=== PATIENT | male | born 1930 | race Caucasian/White ===

== ENCOUNTER → 2017-03-15 | Outpatient (CLI) | payer MEDICARE, BC ==
--- NOTE | 2017-03-21 14:52 | P.ARTDOP ---
Arterial Doppler LOWER EXTREMITY ARTERIAL DOPPLER: DATE OF SERVICE: 03/15/2017 Reason for study: Lower extremity vascular disease. Doppler waveforms: Multiphasic bilaterally throughout. Pulse volume recording: Normal configuration. Pressure gradients: None. Ankle-brachial indices: Cannot be occluded. Toe pressures: 113 on the right, 116 on the left Impression: Normal study. 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
== END | disposition home or self-care (01) ==
LOC: RADUSWWP 12:08
PROVIDERS: ATTEND Family Medicine
DX: I73.9 Peripheral vascular disease, unspecified (principal)
CPT/HCPCS: 93923

== ENCOUNTER 2017-05-14 15:23 | Emergency (ER) | payer MEDICARE, BC ==
[2017-05-14] MEDS ORDERED: IBUPROFEN 800 MG TAB PO STA (16:08)
[2017-05-14] MEDS ORDERED: CEPHALEXIN 500 MG CAP PO STA (16:08)
--- NOTE | 2017-05-14 16:15 | ED ---
General Adult HPI - General Chief complaint: Extremity Problem,Nontraumatic Stated complaint: Dr Ramiro/Heart Stent/Numbness in foot /leg Time Seen by Provider: 05/14/17 15:40 Source: patient, RN notes reviewed, old records reviewed Mode of arrival: wheelchair Limitations: no limitations - History of Present Illness Initial comments: This is an 87-year-old male the ER for evaluation patient is coming in for evaluation of right lower x-ray pain. Vital x-ray pain is like. Patient has history of diabetes. No fevers. Patient has mild area of anterior redness to right leg. Patient sent in by family doctor for rule out DVT. Patient states no prior history of cellulitis, he is on blood thinners, Coumadin. - Related Data Home Medications Medication Instructions Recorded Confirmed [id number] 1 tab PO DAILY@1200 07/10/15 05/14/17 [Folbic] Digoxin [Digitek] 125 mcg PO DAILY 07/10/15 05/14/17 Enalapril Maleate [Vasotec] 20 mg PO BID 07/10/15 05/14/17 Furosemide [Lasix] 20 mg PO BID 07/10/15 05/14/17 Metoprolol Succinate (ER) [Toprol 25 mg PO BID 07/10/15 05/14/17 Xl] Nitroglycerin Sl Tabs [Nitrostat] 0.4 mg SUBLINGUAL Q5M PRN 07/10/15 05/14/17 Potassium Chloride [Klor-Con 20] 20 meq PO DAILY 07/10/15 05/14/17 Simvastatin [Zocor] 20 mg PO HS 07/10/15 05/14/17 Solifenacin Succinate [Vesicare] 10 mg PO DAILY 07/10/15 05/14/17 Travoprost [Travatan Z 0.004%] 1 drop RIGHT EYE DAILY 07/10/15 05/14/17 amLODIPine [Norvasc] 5 mg PO DAILY 07/10/15 05/14/17 glipiZIDE [Glucotrol] 2.5 mg PO AC-BRKFST 07/10/15 05/14/17 metFORMIN HCL [Glucophage] 500 mg PO TID 07/10/15 05/14/17 Hydrocodone/Acetaminophen 1 tab PO Q6HR PRN 05/14/17 05/14/17 [Hydrocodone/Acetaminophen 7.5-300] Warfarin [Coumadin] 5 mg PO HS 05/14/17 05/14/17 Allergies Allergy/AdvReac Type Severity Reaction Status Date / Time No Known Allergies Allergy Verified 05/14/17 16:11 Review of Systems ROS Statement: Those systems with pertinent positive or pertinent negative responses have been documented in the HPI. ROS Other: All systems not noted in ROS Statement are negative. Past Medical History Past Medical History: Atrial Fibrillation, Heart Failure, Diabetes Mellitus, Hyperlipidemia, Hypertension History of Any Multi-Drug Resistant Organisms: None Reported Past Surgical History: Back Surgery, Hernia Repair Past Psychological History: No Psychological Hx Reported Smoking Status: Never smoker Past Alcohol Use History: Rare Past Drug Use History: None Reported General Exam Limitations: no limitations General appearance: alert, in no apparent distress Head exam: Present: atraumatic, normocephalic, normal inspection Eye exam: Present: normal appearance, PERRL, EOMI. Absent: scleral icterus, conjunctival injection, periorbital swelling ENT exam: Present: normal exam, mucous membranes moist Neck exam: Present: normal inspection. Absent: tenderness, meningismus, lymphadenopathy Respiratory exam: Present: normal lung sounds bilaterally. Absent: respiratory distress, wheezes, rales, rhonchi, stridor Cardiovascular Exam: Present: regular rate, normal rhythm, normal heart sounds. Absent: systolic murmur, diastolic murmur, rubs, gallop, clicks GI/Abdominal exam: Present: soft, normal bowel sounds. Absent: distended, tenderness, guarding, rebound, rigid Extremities exam: Present: normal inspection, full ROM, normal capillary refill , other (Right Anterior thigh erythema, warmth tenderness right). Absent: tenderness, pedal edema, joint swelling, calf tenderness Back exam: Present: normal inspection Neurological exam: Present: alert, oriented X3, CN II-XII intact Psychiatric exam: Present: normal affect, normal mood Skin exam: Present: warm, dry, intact, normal color. Absent: rash Course Vital Signs 05/14/17 05/14/17 05/14/17 15:32 16:00 16:50 Temperature 98.1 F 98.1 F Pulse Rate 52 L 51 L 44 L Respiratory 20 15 18 Rate Blood Pressure 193/78 147/67 141/63 O2 Sat by Pulse 92 L 96 94 L Oximetry EKG Findings - EKG Comments: EKG Findings:: EKG shows sinus bradycardia rate of 54, SC 160, QRS 150, QTC 445 , patient does have sinus bradycardia no evidence of first or second-degree heart block Medical Decision Making - Medical Decision Making A timeout ER for evaluation of right leg pain and swelling, mild erythema, positive cellulitis ultrasound is negative for DVT and patient is on Coumadin, he will be started on Keflex to follow up with front primary care - Radiology Data Radiology results: report reviewed (Ultrasound is negative for DVT), image reviewed Disposition Clinical Impression: Cellulitis of right leg Disposition: HOME SELF-CARE Condition: Good Instructions: Cellulitis (ED) Referrals: Mariola Butler MD [Primary Care Provider] - 1-2 days
--- NOTE | 2017-05-14 16:54 | US ---
EXAMINATION TYPE: US venous doppler duplex LE RT DATE OF EXAM: 05/14/2017 4:42 PM COMPARISON: NONE CLINICAL HISTORY: Pain. Pt states right leg pain SIDE PERFORMED: Right TECHNIQUE: The lower extremity deep venous system is examined utilizing real time linear array sonog monica with graded compression, doppler sonography and color-flow sonography. VESSELS IMAGED: External Iliac Vein (EIV) Common Femoral Vein Deep Femoral Vein Greater Saphenous Vein * Femoral Vein Popliteal Vein Small Saphenous Vein * Proximal Calf Veins (* superficial vessels) Right Leg: Negative for DVT IMPRESSION: Normal exam. No evidence of deep venous thrombosis in the right leg.
[2017-05-14 17:14] VITALS: BP 148/70; PULSE 45; RESP 15; TEMP 98.2
== END 2017-05-14 17:18 | disposition home or self-care (01) ==
LOC: EC 15:23
DX: L03.115 Cellulitis of right lower limb (principal); M79.604 Pain in right leg; E78.5 Hyperlipidemia, unspecified; I48.91 Unspecified atrial fibrillation; I11.0 Hypertensive heart disease with heart failure; E11.9 Type 2 diabetes mellitus without complications; Z79.01 Long term (current) use of anticoagulants; Z79.899 Other long term (current) drug therapy
CPT/HCPCS: 93005; 99284

== ENCOUNTER 2018-07-16 17:37 | Inpatient (IN) | payer BC, MEDICARE ==
--- NOTE | 2018-07-16 19:06 | ED ---
General Adult HPI - General Chief complaint: Weakness Stated complaint: Weakness/Fall Time Seen by Provider: 07/16/18 18:21 Source: patient, RN notes reviewed, old records reviewed Mode of arrival: wheelchair Limitations: no limitations - History of Present Illness Initial comments: 88-year-old male presents with worsening weakness and multiple falls. Patient was seen by his primary care physician today who recommended that he presented to the emergency department for evaluation of left lower extremity weakness which has been progressive over the past several days as well as multiple falls with head trauma. Patient states that he has fallen several times, he has had both hips and is head. There was momentary loss consciousness. Patient is complaining of a mild headache at the time my evaluation. Denies chest pain. Denies abdominal pain. Denies nausea or vomiting. Denies fever or chills. Symptoms have been progressive over the past 4-5 days. - Related Data Home Medications Medication Instructions Recorded Confirmed Digoxin [Digitek] 125 mcg PO DAILY 07/10/15 07/16/18 Enalapril Maleate [Vasotec] 20 mg PO BID 07/10/15 07/16/18 Metoprolol Succinate (ER) [Toprol 25 mg PO BID 07/10/15 07/16/18 Xl] Potassium Chloride [Klor-Con 20] 20 meq PO DAILY 07/10/15 07/16/18 Simvastatin [Zocor] 20 mg PO HS 07/10/15 07/16/18 amLODIPine [Norvasc] 5 mg PO DAILY 07/10/15 07/16/18 glipiZIDE [Glucotrol] 2.5 mg PO AC-BRKFST 07/10/15 07/16/18 metFORMIN HCL [Glucophage] 500 mg PO TID 07/10/15 07/16/18 Hydrocodone/Acetaminophen 1 tab PO Q6HR PRN 05/14/17 07/16/18 [Hydrocodone/Acetaminophen 7.5-300] Warfarin [Coumadin] 5 mg PO HS 05/14/17 07/16/18 Trospium Chloride [Sanctura XR] 60 mg PO DAILY 07/16/18 07/16/18 hydrALAZINE HCL [Apresoline] 25 mg PO BID 07/16/18 07/16/18 Allergies Allergy/AdvReac Type Severity Reaction Status Date / Time No Known Allergies Allergy Verified 07/16/18 19:20 Review of Systems ROS Statement: Those systems with pertinent positive or pertinent negative responses have been documented in the HPI. ROS Other: All systems not noted in ROS Statement are negative. Past Medical History Past Medical History: Atrial Fibrillation, Heart Failure, Diabetes Mellitus, Hyperlipidemia, Hypertension History of Any Multi-Drug Resistant Organisms: None Reported Past Surgical History: Back Surgery, Hernia Repair Past Psychological History: No Psychological Hx Reported Smoking Status: Never smoker Past Alcohol Use History: Rare Past Drug Use History: None Reported General Exam Limitations: no limitations General appearance: alert, in no apparent distress Head exam: Present: atraumatic, normocephalic Eye exam: Present: normal appearance. Absent: PERRL (Left eye prosthesis) ENT exam: Present: normal exam Neck exam: Present: normal inspection. Absent: tenderness, meningismus Respiratory exam: Present: normal lung sounds bilaterally. Absent: respiratory distress, wheezes Cardiovascular Exam: Present: regular rate, normal rhythm GI/Abdominal exam: Present: soft. Absent: distended, tenderness Extremities exam: Present: normal inspection, full ROM Neurological exam: Present: alert, oriented X3, other (Left eye ptosis). Absent : motor sensory deficit Psychiatric exam: Present: normal affect, normal mood Skin exam: Present: warm, dry, intact. Absent: cyanosis, diaphoretic Course Vital Signs 07/16/18 07/16/18 07/16/18 17:43 20:42 21:58 Temperature 98.1 F Pulse Rate 63 55 L 67 Respiratory 18 18 18 Rate Blood Pressure 133/63 134/63 160/76 O2 Sat by Pulse 93 L 98 97 Oximetry EKG Findings - EKG Comments: EKG Findings:: EKG: Sinus rhythm with occasional PVC, right bundle branch block , rate of 62, MS interval 102, QRS duration 148, QT 440, QTC 446 Medical Decision Making - Medical Decision Making 88-year-old male presenting for evaluation of multiple falls, bilateral hip pain , and lower extremity weakness. Patient was sent in by his primary care physician for evaluation and admission. Head CT is obtained, this negative for intracranial hemorrhage or mass effect. X-ray of the pelvis is negative for any acute bony abnormality. However given the patient's ongoing pain, CT will be obtained of both hips. Chest x-ray negative for any focal cardiopulmonary disease. Patient does have an elevated white blood cell count 14.6, on certain if there is ongoing infection at this time. INR therapeutic. Hemoglobin is stable. Electrolytes within normal limits. Urinalysis is negative for infection. Patient will be admitted for further evaluation treatment. Neurology will be placed on consult. Case is discussed with Dr. Beasley who will accept admission. - Lab Data Result diagrams: 07/16/18 19:12 07/16/18 19:12 Lab Results 07/16/18 07/16/18 07/16/18 Range/Units 19:12 19:12 19:12 WBC 14.6 H (3.8-10.6) k/uL RBC 5.03 (4.30-5.90) m/uL Hgb 15.5 (13.0-17.5) gm/dL Hct 47.6 (39.0-53.0) % MCV 94.6 (80.0-100.0) fL MCH 30.8 (25.0-35.0) pg MCHC 32.5 (31.0-37.0) g/dL RDW 13.8 (11.5-15.5) % Plt Count 192 (150-450) k/uL Neutrophils % (Manual) 40 % Lymphocytes % (Manual) 59 % Eosinophils % (Manual) 1 % Neutrophils # (Manual) 5.84 (1.3-7.7) k/uL Lymphocytes # (Manual) 8.61 H (1.0-4.8) k/uL Eosinophils # (Manual) 0.15 (0-0.7) k/uL Nucleated RBCs 0 (0-0) /100 WBC Manual Slide Review Performed RBC Morphology Normal PT (9.0-12.0) sec INR (<1.2) APTT (22.0-30.0) sec Sodium 142 (137-145) mmol/L Potassium 4.7 (3.5-5.1) mmol/L Chloride 108 H (98-107) mmol/L Carbon Dioxide 24 (22-30) mmol/L Anion Gap 10 mmol/L BUN 19 (9-20) mg/dL Creatinine 0.70 (0.66-1.25) mg/dL Est GFR (CKD-EPI)AfAm >90 (>60 ml/min/1.73 sqM) Est GFR (CKD-EPI)NonAf 86 (>60 ml/min/1.73 sqM) Glucose 109 H (74-99) mg/dL Calcium 9.7 (8.4-10.2) mg/dL Total Bilirubin 0.9 (0.2-1.3) mg/dL AST 41 (17-59) U/L ALT 43 (21-72) U/L Alkaline Phosphatase 58 (38-126) U/L Total Creatine Kinase 527 H (55-170) U/L CK-MB (CK-2) 4.6 H* (0.0-2.4) ng/mL CK-MB (CK-2) Rel Index 0.9 Troponin I 0.016 (0.000-0.034) ng/mL Total Protein 7.0 (6.3-8.2) g/dL Albumin 4.3 (3.5-5.0) g/dL Urine Color Urine Appearance (Clear) Urine pH (5.0-8.0) Ur Specific [place] (1.001-1.035) Urine Protein (Negative) Urine Glucose (UA) (Negative) Urine Ketones (Negative) Urine Blood (Negative) Urine Nitrite (Negative) Urine Bilirubin (Negative) Urine Urobilinogen (<2.0) mg/dL Ur Leukocyte Esterase (Negative) 07/16/18 07/16/18 Range/Units 19:12 20:10 WBC (3.8-10.6) k/uL RBC (4.30-5.90) m/uL Hgb (13.0-17.5) gm/dL Hct (39.0-53.0) % MCV (80.0-100.0) fL MCH (25.0-35.0) pg MCHC (31.0-37.0) g/dL RDW (11.5-15.5) % Plt Count (150-450) k/uL Neutrophils % (Manual) % Lymphocytes % (Manual) % Eosinophils % (Manual) % Neutrophils # (Manual) (1.3-7.7) k/uL Lymphocytes # (Manual) (1.0-4.8) k/uL Eosinophils # (Manual) (0-0.7) k/uL Nucleated RBCs (0-0) /100 WBC Manual Slide Review RBC Morphology PT 27.3 H (9.0-12.0) sec INR 3.0 H (<1.2) APTT 30.8 H (22.0-30.0) sec Sodium (137-145) mmol/L Potassium (3.5-5.1) mmol/L Chloride (98-107) mmol/L Carbon Dioxide (22-30) mmol/L Anion Gap mmol/L BUN (9-20) mg/dL Creatinine (0.66-1.25) mg/dL Est GFR (CKD-EPI)AfAm (>60 ml/min/1.73 sqM) Est GFR (CKD-EPI)NonAf (>60 ml/min/1.73 sqM) Glucose (74-99) mg/dL Calcium (8.4-10.2) mg/dL Total Bilirubin (0.2-1.3) mg/dL AST (17-59) U/L ALT (21-72) U/L Alkaline Phosphatase (38-126) U/L Total Creatine Kinase (55-170) U/L CK-MB (CK-2) (0.0-2.4) ng/mL CK-MB (CK-2) Rel Index Troponin I (0.000-0.034) ng/mL Total Protein (6.3-8.2) g/dL Albumin (3.5-5.0) g/dL Urine Color Yellow Urine Appearance Clear (Clear) Urine pH 5.0 (5.0-8.0) Ur Specific [place] 1.014 (1.001-1.035) Urine Protein Negative (Negative) Urine Glucose (UA) Negative (Negative) Urine Ketones Negative (Negative) Urine Blood Negative (Negative) Urine Nitrite Negative (Negative) Urine Bilirubin Negative (Negative) Urine Urobilinogen <2.0 (<2.0) mg/dL Ur Leukocyte Esterase Negative (Negative) Disposition Clinical Impression: Weakness, Multiple falls Disposition: [facility] Condition: Stable Is patient prescribed a controlled substance at d/c from ED?: No Referrals: Mariola Butler MD [Primary Care Provider] - 1-2 days Decision to Admit Reason: Admit from EC Decision Date: 07/16/18 Decision Time: 22:08
[2018-07-16 19:24] LABS: HCT 47.6 % (39.0-53.0); HGB 15.5 gm/dL (13.0-17.5); MCH 30.8 pg (25.0-35.0); MCHC 32.5 g/dL (31.0-37.0); MCV 94.6 fL (80.0-100.0); Platelet Count 192 k/uL (150-450); RBC 5.03 m/uL (4.30-5.90); RDW 13.8 % (11.5-15.5); WBC 14.6 k/uL (3.8-10.6)
[2018-07-16 19:45] LABS: Lymphocytes # (M) 8.61 k/uL (1.0-4.8); Neutrophils # (M) 5.84 k/uL (1.3-7.7); Neutrophils % (M) 40 %
[2018-07-16 19:46] LABS: Eosinophils # (M) 0.15 k/uL (0-0.7); Nucleated Red Blood Cells 0 /100 WBC (0-0); Total Cells Counted 100
[2018-07-16 19:52] LABS: Partial Thromboplastin Time 30.8 sec (22.0-30.0); Prothrombin Time 27.3 sec (9.0-12.0); Troponin I 0.016 ng/mL (0.000-0.034)
[2018-07-16 20:06] LABS: ALT 43 U/L (21-72); AST 41 U/L (17-59); Albumin 4.3 g/dL (3.5-5.0); Alkaline Phosphatase 58 U/L (38-126); Anion Gap 10 mmol/L; Blood Urea Nitrogen 19 mg/dL (9-20); Calcium 9.7 mg/dL (8.4-10.2); Carbon Dioxide 24 mmol/L (22-30); Chloride 108 mmol/L (98-107); Creatine Kinase MB 4.6 ng/mL (0.0-2.4); Glucose 109 mg/dL (74-99); Potassium 4.7 mmol/L (3.5-5.1); Sodium 142 mmol/L (137-145); Total Bilirubin 0.9 mg/dL (0.2-1.3)
[2018-07-16 21:12] LABS: Appearance,Urine Clear (Clear); Bilirubin,Urine Negative (Negative); Blood,Urine Negative (Negative); Color,Urine Yellow; Glucose,Urine (UA) Negative (Negative); Ketones,Urine Negative (Negative); Leukocyte Esterase,Urine Negative (Negative); Nitrite,Urine Negative (Negative); Protein,Urine Negative (Negative); Specific Gravity,Urine 1.014 (1.001-1.035); Urobilinogen,Urine <2.0 mg/dL (<2.0)
--- NOTE | 2018-07-16 21:29 | CT ---
EXAMINATION TYPE: CT brain aureliaine wo con DATE OF EXAM: 07/16/2018 COMPARISON: None. HISTORY: Weakness and fall. CT DLP: 1807 mGycm Automated exposure control for dose reduction was used. TECHNIQUE: CT scan of the head and cervical spine are performed without contrast. FINDINGS: There is no acute intracranial hemorrhage, mass effect, or midline shift identified. The ventricles and sulci are within normal limits in size. The globes are intact and the visualized sin uses are clear. Cervical spine is visualized in its entirety from C1 through upper thoracic levels and demonstrates s atisfactory alignment without evidence of acute fracture or dislocation. There are markedly advanced cervical spondylosis changes at all levels. Prevertebral soft tissue appears within normal limits. Th e C1-C2 articulation is unremarkable. IMPRESSION: 1. There is no acute fracture or dislocation evident in the cervical spine. 2. No acute intracranial hemorrhage, mass effect, or midline shift is seen.
--- NOTE | 2018-07-16 21:48 | XR ---
PROCEDURE: XR pelvis AP view one view DATE AND TIME: 07/16/2018 9:09 PM REFERRING PHYSICIAN: Will Royal MD CLINICAL INDICATION: PHH, Pain TECHNIQUE: Department protocol. COMPARISON: None FINDINGS: There is no fracture or malalignment. The soft tissues are unremarkable. IMPRESSION: NO ACUTE PROCESS.
--- NOTE | 2018-07-16 21:49 | XR ---
EXAMINATION: XR chest 2V DATE AND TIME: 07/16/2018 9:09 PM ORDERING PROVIDER: Will Royal MD CLINICAL INDICATION: altered mental status TECHNIQUE: PA and lateral COMPARISON: 08/21/2012 DESCRIPTION: The lungs appear to be clear. The pleural spaces are negative. Elevated left hemidiaphragm redemonstrated. The cardiac silhouette is moderately enlarged, unchanged. The mediastinal and pleural silhouettes are unremarkable. The skeletal structures are intact without focal findings. The soft tissues are unremarkable. IMPRESSION: NO DEFINITE ACUTE PROCESS.
[2018-07-16] MEDS ORDERED: NALOXONE 0.4 MG/ML 1 ML VIAL IV PRN (22:11)
[2018-07-16] MEDS ORDERED: ACETAMINOPHEN TAB 500 MG TAB PO PRN (22:50)
[2018-07-16] MEDS ORDERED: ALPRAZolam 0.25 MG TAB PO PRN (22:50)
--- NOTE | 2018-07-16 23:05 | CT ---
EXAMINATION TYPE: CT pelvis wo con DATE OF EXAM: 07/16/2018 COMPARISON: 12/05/2011 HISTORY: Fall. Bilateral hip pain. CT DLP: 558.8 mGycm Automated exposure control for dose reduction was used. FINDINGS: There is osteopenia. There is deformity of the left side of the sacrum consistent with old fracture. There is mild osteosclerosis at the left sacroiliac joint. I see no acute pelvic fracture. There is m ild acetabular spurring. The proximal femurs are intact. There is no evidence of hip fracture. There is no free fluid in the pelvis. There is no sign of pelvic hematoma. There is mild stranding around t he right side of the rectum. There is laminectomy in the lower lumbar spine. There is spondylosis wit h severe narrowing of L4-5 disc space. Abdominal aorta is atheromatous. There is atherosclerotic vasc ular calcification in the pelvis. IMPRESSION: NO ACUTE FRACTURE SEEN. THERE IS EVIDENCE OF OLD LEFT-SIDED SACRAL FRACTURE. SPONDYLOTIC CHANGES IN T HE LOWER LUMBAR SPINE. NO EVIDENCE OF HIP FRACTURE. MILD FAT STRANDING ON THE RIGHT SIDE OF THE RECTUM CONSISTENT WITH MILD INFLAMMATORY PROCESS. NO ABSC ESS.
[2018-07-16 23:20] LABS: Glucose,Whole Blood 132 mg/dL (75-99)
[2018-07-16] MEDS: METOPROLOL SUCCINATE (ER) 25 MG TAB.ER.24H PO SCH (23:31)
[2018-07-16] MEDS: MELATONIN 3 MG TABLET PO SCH (23:31)
[2018-07-16] MEDS: metFORMIN 500 MG TAB PO SCH (23:31)
[2018-07-16] MEDS: LISINOPRIL 20 MG TAB PO SCH (23:31)
[2018-07-16] MEDS: hydrALAZINE HCL 25 MG TAB PO SCH (23:31)
[2018-07-16 23:56] VITALS: BMI 28.5
--- NOTE | 2018-07-16 23:59 | HP ---
HISTORY AND PHYSICAL CHIEF COMPLAINTS: Weakness, fall. HISTORY OF PRESENT ILLNESS: This 88-year-old gentleman with a past history of atrial fibrillation, CHF, diabetes, hypertension, hyperlipidemia, history of back surgery being followed by Dr. Butler in the outpatient setting apparently had multiple falls recently. The patient sometimes loses balance and the patient does not remember what exactly caused the patient to fall. In any case, the patient had difficulty moving the left leg and the patient has some bilateral hip pains, left more than the right and the patient came to [facility] and was admitted for further evaluation and treatment. Initial x- rays done showed no fractures. The patient also has left leg swelling also. There is no history of fever, rigors or chills. No headache, loss of consciousness, seizures at this time. There is no history of fever, rigors or chills. The patient is anticoagulated. PAST MEDICAL HISTORY: Atrial fibrillation, CHF, history diabetes mellitus, hypertension, hyperlipidemia, hyperlipidemia, post polio paralysis. MEDICATIONS: 1. Zocor 20 mg q.h.s. 2. Hydrocodone 1 tablet every 6 hours p.r.n. 3. Hydralazine 25 mg p.o. b.i.d. 4. Sanctura XR 60 mg p.o. daily. 5. Glucovance 500 mg p.o. t.i.d. 6. Glucotrol 2.5 mg a.c. breakfast. 7. Norvasc 5 mg p.o. daily. 8. Coumadin 5 mg q.h.s. 9. Klor-Con 10 mEq p.o. daily. 10.Toprol-XL 25 mg p.o. b.i.d. 11.Vasotec 20 mg p.o. b.i.d. 12.Digitek 125 mcg p.o. daily. ALLERGIES: None. FAMILY HISTORY: No history of heart disease or strokes in family. SOCIAL HISTORY: History of smoking. No history of alcohol intake. REVIEW OF SYSTEMS: ENT: Diminished hearing. Diminished vision. CARDIOVASCULAR SYSTEM: No angina, palpitations. RESPIRATORY: As mentioned earlier. GI: No nausea. : No dysuria. NERVOUS SYSTEM: Weakness, otherwise mentioned. ALLERGY: No asthma, hayfever. MUSCULOSKELETAL: As mentioned earlier. HEMATOLOGY/ONCOLOGY: No history of anemia. ENDOCRINE: Diabetes mellitus. CONSTITUTIONAL: As mentioned earlier. DERMATOLOGY: Negative. RHEUMATOLOGY: Negative. PSYCHIATRY: As mentioned earlier. PHYSICAL EXAM: Patient is alert, oriented x3. The pulse is 59, blood pressure 152/70, respiration 18, temperature 98.1, pulse ox 97% on 2 L. HEENT: Conjunctivae normal. Oral mucosa moist. NECK: No jugular venous distention. No lymph node enlargement. CARDIOVASCULAR SYSTEM: S1, S2 muffled. RESPIRATORY SYSTEM: Breath sounds diminished at the bases. A few scattered rhonchi. No crackles. ABDOMEN: Soft, nontender. No mass palpable. LEGS: Left leg swelling and some erythema excoriations also present in the left leg and left upper arm. NERVOUS SYSTEM: Higher functions as mentioned. Moves all 4 limbs. Minimal weakness on the left side appreciated, otherwise movement of the hip is also painful. LYMPHATICS: No lymph nodes palpable in neck, axillae or groin. SKIN: As mentioned earlier. JOINTS: No active deforming arthropathy. LABS: WBC 14.2, hemoglobin 15.5. INR is 3. CK is 520. Other labs noted. ASSESSMENT: 1. Falls and weakness, possible acute transient ischemic attack involving the left side and left side of the body caused by right hemispheric lesion. 2. Rule out hip fracture. 3. Left leg swelling for evaluation. 4. Increased creatinine. 5. Mild rhabdomyolysis. 6. History of multiple falls. 7. Gait dysfunction. 8. Increased WBC. 9. Atrial fibrillation. 10.History of congestive heart failure. 11.Diabetes mellitus type 2. 12.Hypertension. 13.Hyperlipidemia. 14.History of back surgery. 15.Hernia surgery. 16.FULL CODE. RECOMMENDATIONS AND DISCUSSION: In this 88-year-old gentleman who presented with multiple complications we will monitor the patient closely. Continue the current management. CT scan did not show any acute stroke at this time, but however, we will continue to monitor. Neurology consultation. Neurovascular evaluation. I have also recommend a CT scan of the pelvis to rule out the possible fractures as well, otherwise PT/OT evaluation. Ultrasound of the left leg will be ordered to rule out the possibility of acute DVT. Continue the rest of the medication. Monitor blood sugars closely. Medication reconciliation. Prognosis guarded because of multiple complex medical issues. Further recommendations to follow. See orders for details. Discussed with the family at length. MMODL / IJN: [id number] / MTDD
[2018-07-17 07:21] LABS: Glucose,Whole Blood 110 mg/dL (75-99)
[2018-07-17] MEDS: INSULIN ASPART 100 UNIT/ML 1 ML 10 ML VIAL SQ SCH ×4 (07:34→21:31)
[2018-07-17] MEDS: amLODIPine 5 MG TAB PO SCH (08:40)
[2018-07-17] MEDS: hydrALAZINE HCL 25 MG TAB PO SCH ×2 (08:41→20:33)
[2018-07-17] MEDS: DIGOXIN 125 MCG TAB PO SCH (08:41)
[2018-07-17] MEDS: LISINOPRIL 20 MG TAB PO SCH ×2 (08:41→20:34)
[2018-07-17] MEDS: METOPROLOL SUCCINATE (ER) 25 MG TAB.ER.24H PO SCH ×2 (08:42→20:34)
[2018-07-17] MEDS: metFORMIN 500 MG TAB PO SCH ×3 (08:43→21:30)
[2018-07-17] MEDS: glipiZIDE 5 MG TAB PO SCH (08:43)
[2018-07-17] MEDS: POTASSIUM CHLORIDE ER 20 MEQ TAB.ER PO SCH ×3 (08:43→18:07)
[2018-07-17] MEDS: PANTOPRAZOLE 40 MG TABLET PO SCH (08:43)
[2018-07-17 08:51] LABS: INR 3.1 (<1.2); Prothrombin Time 27.9 sec (9.0-12.0)
[2018-07-17 08:52] LABS: Basophils # (A) 0.1 k/uL (0-0.2); Basophils % (A) 1 %; Eosinophils # (A) 0.3 k/uL (0-0.7); Eosinophils % (A) 3 %; HCT 44.1 % (39.0-53.0); HGB 14.8 gm/dL (13.0-17.5); Lymphocytes % (A) 40 %; MCH 31.8 pg (25.0-35.0); MCHC 33.6 g/dL (31.0-37.0); MCV 94.7 fL (80.0-100.0); Mean Platelet Volume 8.4; Monocytes # (A) 0.6 k/uL (0-1.0); Monocytes % (A) 5 %; Neutrophils % (A) 50 %; Platelet Count 191 k/uL (150-450); RBC 4.66 m/uL (4.30-5.90); RDW 13.5 % (11.5-15.5)
[2018-07-17 09:02] LABS: Lymphocytes # (A) 4.8 k/uL (1.0-4.8)
[2018-07-17 09:11] LABS: Anion Gap 8 mmol/L; Blood Urea Nitrogen 17 mg/dL (9-20); Calcium 9.2 mg/dL (8.4-10.2); Carbon Dioxide 26 mmol/L (22-30); Chloride 108 mmol/L (98-107); Creatine Kinase 409 U/L (55-170); Glucose 117 mg/dL (74-99); Potassium 4.7 mmol/L (3.5-5.1); Sodium 142 mmol/L (137-145)
--- NOTE | 2018-07-17 11:33 | US ---
EXAMINATION TYPE: US venous doppler duplex LE DATE OF EXAM: 07/17/2018 10:59 AM COMPARISON: NONE CLINICAL HISTORY: dvt. bilat hip pain after fall SIDE PERFORMED: Bilat TECHNIQUE: The lower extremity deep venous system is examined utilizing real time linear array sonog monica with graded compression, doppler sonography and color-flow sonography. VESSELS IMAGED: External Iliac Vein (EIV) Common Femoral Vein Deep Femoral Vein Greater Saphenous Vein * Femoral Vein Popliteal Vein Small Saphenous Vein * Proximal Calf Veins (* superficial vessels) Right Leg: Appears negative for DVT Left Leg: Appears negative for DVT, complex cystic collection seen in pop fossa = 2.5cm IMPRESSION: No evidence for DVT.
[2018-07-17 15:44] LABS: Hemoglobin A1C 6.2 % (4.0-6.0)
[2018-07-17 16:43] LABS: Glucose,Whole Blood 162 mg/dL (75-99)
[2018-07-17 17:05] LABS: Glucose,Whole Blood 86 mg/dL (75-99)
--- NOTE | 2018-07-17 17:21 | PN ---
PROGRESS NOTE DATE OF SERVICE: 07/17/2018 This 88-year-old gentleman was admitted with fall and weakness had a possible transient ischemic attack. The patient also had left-sided weakness. The patient also had no evidence of DVT. The venous Doppler was negative, but however the pelvis CAT scan was done which showed no obvious fracture, spondylitic changes was noted and otherwise the orthopedic evaluation in progress also. PAST MEDICAL HISTORY: Reviewed. REVIEW OF SYSTEMS: Cardiovascular: No angina or palpitations. Respiration: No cough. GI as mentioned earlier. no dysuria. Central nervous system: As mentioned earlier. CURRENT MEDICATIONS: Reviewed and include: 1. Tylenol 500 every 6 hours p.r.n. 2. [place] 7.5 mg q6h p.r.n. 3. Xanax 0.25 mg t.i.d. 4. Norvasc 5 mg. 5. Lipitor 20 mg. 6. Lanoxin 120 mcg p.o. 7. Glucotrol 2.5. 9. NovoLog scale. 10.Zestril 20 mg b.i.d. 11.Melatonin 3 mg q.h.s. 12.Glucophage 500 mg t.i.d. 13.Toprol-XL 25 mg b.i.d. 14.Narcan 0.2 q.2h. 15.Protonix 40 mg daily. 16.K-Dur 10 mEq daily. 17.Coumadin 5 mg q.h.s. PHYSICAL EXAM: Patient is alert, oriented x3. Pulse is 56. Blood pressure 120/62, respirations 16, temperature 98.1, pulse ox 94 percent on room air. HEENT: Conjunctivae normal. Oral mucosa moist. Neck is no jugular venous distention. No carotid bruit. No lymph node enlargement. Cardiovascular: S1, S2 muffled. Respirations: Breath sounds diminished in the bases. A few scattered rhonchi and crackles. ABDOMEN: Soft, nontender. Legs: Left leg swelling present. Nervous system: No focal deficits. Movements are painful. LABS: WBC 12, INR 3.1 and creatinine is 409. ASSESSMENT: 1. Fall and weakness possibly acute transient ischemic attack involving the left side caused by right hemispheric lesion. 2. Musculoskeletal sprain and severe hip pain after fall. 3. Rhabdomyolysis after fall, acute. 4. Left leg swelling with negative deep vein thrombosis. 5. Increased creatinine with mild acute renal failure. 6. History of multiple falls. 7. Gait dysfunction. 8. Increased WBC. 9. History of recent atrial fibrillation. 10.History of congestive heart failure. 11.Diabetes mellitus type 2. 12.Hypertension. 13.Hyperlipidemia. 14.History of back surgery. 15.History of hernia surgery. 16.FULL CODE. RECOMMENDATIONS AND DISCUSSION: Recommend to continue current medications, continue with monitoring, symptomatic treatment, management and repeat labs. Otherwise PT/OT evaluation. Symptomatic treatment provided. Orthopedic evaluation. Possible ECF rehab. Prognosis guarded because of multiple complex medical issues. Further recommendations to follow. MMODL / IJN: [id number] / MTDD
--- NOTE | 2018-07-17 19:41 | P.CNNES ---
History of Present Illness Consult date: 07/17/18 Requesting physician: Will Royal Reason for Consult: weakness Chief complaint: Weakness - generalized History of Present Illness: Neurology is consulting on an 88-year-old male with recent history of fall and generalized weakness. ED physician and primary care physician were concerned for possible TIA. 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 patient states that he has been having difficulty ambulating at home and reports increasing events of trip and fall as well as loss of balance when attempting to change directions. 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 Patient is a difficult historian as he did not have his hearing aids present for use during the interview. Patient did convey that he does not have any current new unilateralizing weakness. He does state that his lower extremities have been progressively becoming weaker over the last several weeks. During previous falls , patient believes he struck his head on hard pavement at least once possibly twice but after several minutes returned to baseline each time. Patient also reports multiple TIA history. Venous Doppler was negative. CT scan of the pelvis was done which showed no acute fracture, spondylitic changes or other orthopedic etiology. CT brain #1 was negative for acute process. On contact, patient was alert and oriented 3, resting in bed in no acute distress, no family or visitors in the room. Nursing reports no neurological status changes in the previous 24 hours. Review of Systems systems not noted in HPI or negative. Past Medical History Past Medical History: Atrial Fibrillation, Heart Failure, Diabetes Mellitus, Hyperlipidemia, Hypertension History of Any Multi-Drug Resistant Organisms: None Reported Past Surgical History: Back Surgery, Hernia Repair Past Anesthesia/Blood Transfusion Reactions: No Reported Reaction Past Psychological History: No Psychological Hx Reported Smoking Status: Never smoker Past Alcohol Use History: Rare Past Drug Use History: None Reported Medications and Allergies Home Medications Medication Instructions Recorded Confirmed Type Digoxin [Digitek] 125 mcg PO DAILY 07/10/15 07/16/18 History Enalapril Maleate [Vasotec] 20 mg PO BID 07/10/15 07/16/18 History Metoprolol Succinate (ER) [Toprol 25 mg PO BID 07/10/15 07/16/18 History Xl] Potassium Chloride [Klor-Con 20] 20 meq PO DAILY 07/10/15 07/16/18 History Simvastatin [Zocor] 20 mg PO HS 07/10/15 07/16/18 History amLODIPine [Norvasc] 5 mg PO DAILY 07/10/15 07/16/18 History glipiZIDE [Glucotrol] 2.5 mg PO AC-BRKFST 07/10/15 07/16/18 History metFORMIN HCL [Glucophage] 500 mg PO TID 07/10/15 07/16/18 History Hydrocodone/Acetaminophen 1 tab PO Q6HR PRN 05/14/17 07/16/18 History [Hydrocodone/Acetaminophen 7.5-300] Warfarin [Coumadin] 5 mg PO HS 05/14/17 07/16/18 History Trospium Chloride [Sanctura XR] 60 mg PO DAILY 07/16/18 07/16/18 History hydrALAZINE HCL [Apresoline] 25 mg PO BID 07/16/18 07/16/18 History Allergies Allergy/AdvReac Type Severity Reaction Status Date / Time No Known Allergies Allergy Verified 07/16/18 19:20 Physical Examination - Vital Signs Vital Signs: Vital Signs Temp Pulse Pulse Resp BP BP Pulse Ox 07/17/18 13:59 98.1 F 56 L 16 134/62 95 07/17/18 06:34 97.0 F L 50 L 16 103/54 97 07/16/18 23:00 98 F 61 20 155/69 95 07/16/18 22:32 98.1 F 58 L 18 152/76 97 07/16/18 21:58 67 18 160/76 97 07/16/18 20:42 55 L 18 134/63 98 Intake and Output 07/17/18 07/17/18 07/17/18 06:59 14:59 22:59 Intake Total 700 Output Total 400 Balance 300 Intake: Oral 700 Output: Urine 400 Other: # Voids 1 1 1 # Bowel Movements 1 1 Weight 87.5 kg General appearance: Alert & oriented x3, no apparent distress. 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 Respiratory: No increased work of breathing Cardiovascular: Regular rate, rhythm GI/abdominal: No guarding Extremities: bilateral weak lower extremities, upper extremities right stronger than left. Able to move extremities 4 Neurological: cranial nerves II through XII intact no lateralizing weakness no seizure activity noted on physical exam no pronator drift and no nystagmus. Left lower extremity: 3+/5 Right lower extremity: 3+/5 Left upper extremity: 4-/5 Right upper extremity: 4-/5 Sensation: Left lower extremity: normal Right lower extremity: normal Left upper extremity: normal Right upper extremity:normal Psychological: Mood and Affect appropriate for setting Results CT brain negativeunremarkable Laboratory blood work: Elevated WBC - Laboratory Findings CBC and BMP: 07/17/18 08:17 07/17/18 08:17 Abnormal Lab Findings: Abnormal Labs 07/16/18 07/16/18 07/16/18 19:12 19:12 19:12 WBC 14.6 H Lymphocytes # (Manual) 8.61 H PT INR APTT Chloride 108 H Glucose 109 H POC Glucose (mg/dL) Creatine Kinase Total Creatine Kinase 527 H CK-MB (CK-2) 4.6 H* 07/16/18 07/16/18 07/17/18 19:12 23:16 07:17 WBC Lymphocytes # (Manual) PT 27.3 H INR 3.0 H APTT 30.8 H Chloride Glucose POC Glucose (mg/dL) 132 H 110 H Creatine Kinase Total Creatine Kinase CK-MB (CK-2) 07/17/18 07/17/18 07/17/18 08:17 08:17 08:17 WBC 12.0 H Lymphocytes # (Manual) PT 27.9 H INR 3.1 H APTT Chloride 108 H Glucose 117 H POC Glucose (mg/dL) Creatine Kinase 409 H Total Creatine Kinase CK-MB (CK-2) 07/17/18 11:24 WBC Lymphocytes # (Manual) PT INR APTT Chloride Glucose POC Glucose (mg/dL) 162 H Creatine Kinase Total Creatine Kinase CK-MB (CK-2) Assessment and Plan (1) Debility Narrative/Plan: although the patient does have a history of prior CVA and multiple TIA, patient' s current symptoms do not appear reflective of an acute process at this time. Patient's symptoms are more reflective of ge and weakness. However given the patient's recurrent falls, we will continue with baseline neurological workup to rule out any new or changed underlying etiology. Diagnostic workup to include: Repeat CT of the brain 07/18/18 EEG Serum homocysteine level Carotid Doppler studyultrasound-guided continue neuro checks as implemented are ordered. recommend PT OT consult for lower extremity weakness and debility Current Visit: Yes Status: Acute Code(s): R53.81 - OTHER MALAISE SNOMED Code(s): 33607683 (2) Weakness Current Visit: Yes Status: Acute Code(s): R53.1 - WEAKNESS SNOMED Code(s) : 94658050 (3) Multiple falls Narrative/Plan: fall risk procedures per protocol Current Visit: Yes Status: Acute Code(s): R29.6 - REPEATED FALLS SNOMED Code(s): 533305485 Plan: Status: Neurology will continue to follow and provide updates as needed or warranted. Contact our office with any questions I have discussed the plan of care with the physician prior to implementation and he agrees with the plan as implemented.
[2018-07-17] MEDS: ATORVASTATIN 10 MG TAB PO SCH (20:33)
[2018-07-17] MEDS: MELATONIN 3 MG TABLET PO SCH (20:34)
[2018-07-17 21:29] LABS: Glucose,Whole Blood 233 mg/dL (75-99)
[2018-07-17] MEDS: WARFARIN 5 MG TAB PO SCH (22:36)
[2018-07-18 07:07] LABS: Glucose,Whole Blood 125 mg/dL (75-99)
[2018-07-18] MEDS: INSULIN ASPART 100 UNIT/ML 1 ML 10 ML VIAL SQ SCH ×4 (07:57→21:37)
[2018-07-18 08:21] LABS: HCT 42.9 % (39.0-53.0); HGB 14.2 gm/dL (13.0-17.5); MCH 31.6 pg (25.0-35.0); MCHC 33.1 g/dL (31.0-37.0); MCV 95.5 fL (80.0-100.0); Mean Platelet Volume 8.4; Platelet Count 165 k/uL (150-450); RDW 13.5 % (11.5-15.5)
[2018-07-18 08:23] LABS: INR 2.2 (<1.2); Prothrombin Time 20.3 sec (9.0-12.0)
[2018-07-18] MEDS: amLODIPine 5 MG TAB PO SCH (08:23)
[2018-07-18] MEDS: DIGOXIN 125 MCG TAB PO SCH (08:23)
[2018-07-18] MEDS: glipiZIDE 5 MG TAB PO SCH (08:23)
[2018-07-18] MEDS: LISINOPRIL 20 MG TAB PO SCH ×2 (08:23→20:44)
[2018-07-18] MEDS: metFORMIN 500 MG TAB PO SCH ×3 (08:24→20:46)
[2018-07-18] MEDS: hydrALAZINE HCL 25 MG TAB PO SCH ×2 (08:24→20:44)
[2018-07-18] MEDS: METOPROLOL SUCCINATE (ER) 25 MG TAB.ER.24H PO SCH ×2 (08:24→20:44)
[2018-07-18] MEDS: POTASSIUM CHLORIDE ER 20 MEQ TAB.ER PO SCH ×2 (08:24→12:43)
[2018-07-18] MEDS: PANTOPRAZOLE 40 MG TABLET PO SCH (08:24)
[2018-07-18 08:39] LABS: Anion Gap 6 mmol/L; Blood Urea Nitrogen 14 mg/dL (9-20); Calcium 9.1 mg/dL (8.4-10.2); Carbon Dioxide 26 mmol/L (22-30); Chloride 109 mmol/L (98-107); Creatine Kinase 289 U/L (55-170); Glucose 124 mg/dL (74-99); Potassium 4.8 mmol/L (3.5-5.1); Sodium 141 mmol/L (137-145)
--- NOTE | 2018-07-18 08:53 | P.CNOR ---
History of Present Illness - [facility] Consult date: 07/18/18 Consult reason: other History of present illness: Patient is an 88-year-old male who was recently admitted to [facility]. Patient reported to the hospital after sustaining a fall at home, where he states he has had. Patient has a recent history of multiple falls and difficulty with ambulation. He has a rather complex medical history. Patient was admitted to [facility] for further workup involving the generalized weakness, gait instability and frequent falls. Internal medicine will see admitting provider, neurology consult is in place along with orthopedic consult. We will consult to rule out fracture involving the hip/pelvis. Initial x-rays that were done were negative, computed tomography scan was then ordered. Computed tomography scan demonstrated no acute fractures. Patient has history of back surgery, imaging studies demonstrated spondylitic changes and degenerative changes throughout the lumbar spine. He also has a history of a right ankle fusion. Patient states he gets around with 2 canes, he also has walkers placed throughout his home. 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 Patient denies any pain involving the bilateral upper extremities. He notes some discomfort in the bilateral lower extremities, more proximal, this is when he ambulates. He denies any new onset knee or ankle pain bilaterally. Review of Systems Constitutional: Reports as per HPI Past Medical History Past Medical History: Atrial Fibrillation, Heart Failure, Diabetes Mellitus, Hyperlipidemia, Hypertension History of Any Multi-Drug Resistant Organisms: None Reported Past Surgical History: Back Surgery, Hernia Repair Past Anesthesia/Blood Transfusion Reactions: No Reported Reaction Past Psychological History: No Psychological Hx Reported Smoking Status: Never smoker Past Alcohol Use History: Rare Past Drug Use History: None Reported Medications and Allergies Home Medications Medication Instructions Recorded Confirmed Type Digoxin [Digitek] 125 mcg PO DAILY 07/10/15 07/16/18 History Enalapril Maleate [Vasotec] 20 mg PO BID 07/10/15 07/16/18 History Metoprolol Succinate (ER) [Toprol 25 mg PO BID 07/10/15 07/16/18 History Xl] Potassium Chloride [Klor-Con 20] 20 meq PO DAILY 07/10/15 07/16/18 History Simvastatin [Zocor] 20 mg PO HS 07/10/15 07/16/18 History amLODIPine [Norvasc] 5 mg PO DAILY 07/10/15 07/16/18 History glipiZIDE [Glucotrol] 2.5 mg PO AC-BRKFST 07/10/15 07/16/18 History metFORMIN HCL [Glucophage] 500 mg PO TID 07/10/15 07/16/18 History Hydrocodone/Acetaminophen 1 tab PO Q6HR PRN 05/14/17 07/16/18 History [Hydrocodone/Acetaminophen 7.5-300] Warfarin [Coumadin] 5 mg PO HS 05/14/17 07/16/18 History Trospium Chloride [Sanctura XR] 60 mg PO DAILY 07/16/18 07/16/18 History hydrALAZINE HCL [Apresoline] 25 mg PO BID 07/16/18 07/16/18 History Allergies Allergy/AdvReac Type Severity Reaction Status Date / Time No Known Allergies Allergy Verified 07/16/18 19:20 Physical Examination General orthopedic exam: Range of motion of the bilateral lower extremities intact, logroll maneuver bilaterally reproduces no groin pain. He is able to extend and flex the knees with minimal difficulty. Ankle motion on the right is limited due to the fusion. Plantar flexion, dorsiflexion, EHL, FHL is intact bilaterally. His sensory exam to light touch throughout the bilateral lower extremities is intact. His dorsalis pedis pulses 2+ bilaterally. Results - Labs Labs: Abnormal Lab Results - Last 24 Hours (Table) 07/16/18 07/17/18 07/17/18 Range/Units 19:12 08: 08:17 WBC 12.0 H (3.8-10.6) k/uL PT (9.0-12.0) sec INR (<1.2) Chloride 108 H (98-107) mmol/L Glucose 117 H (74-99) mg/dL POC Glucose (mg/dL) (75-99) mg/dL Hemoglobin A1c 6.2 H (4.0-6.0) % Creatine Kinase 409 H (55-170) U/L 07/17/18 07/17/18 07/17/18 Range/Units 08:17 11:24 21:24 WBC (3.8-10.6) k/uL PT 27.9 H (9.0-12.0) sec INR 3.1 H (<1.2) Chloride (98-107) mmol/L Glucose (74-99) mg/dL POC Glucose (mg/dL) 162 H 233 H (75-99) mg/dL Hemoglobin A1c (4.0-6.0) % Creatine Kinase (55-170) U/L 07/18/18 07/18/18 07/18/18 Range/Units 07:05 07:29 07:29 WBC 12.0 H (3.8-10.6) k/uL PT (9.0-12.0) sec INR (<1.2) Chloride 109 H (98-107) mmol/L Glucose 124 H (74-99) mg/dL POC Glucose (mg/dL) 125 H (75-99) mg/dL Hemoglobin A1c (4.0-6.0) % Creatine Kinase 289 H (55-170) U/L 07/18/18 Range/Units 07:29 WBC (3.8-10.6) k/uL PT 20.3 H (9.0-12.0) sec INR 2.2 H (<1.2) Chloride (98-107) mmol/L Glucose (74-99) mg/dL POC Glucose (mg/dL) (75-99) mg/dL Hemoglobin A1c (4.0-6.0) % Creatine Kinase (55-170) U/L H & H 07/16/18 07/17/18 07/18/18 Range/Units 19:12 08:17 07:29 Hgb 15.5 14.8 14.2 (13.0-17.5) gm/dL Hct 47.6 44.1 42.9 (39.0-53.0) % Coagulation 07/16/18 07/17/18 07/18/18 Range/Units 19:12 08:17 07:29 INR 3.0 H 3.1 H 2.2 H (<1.2) Result Diagrams: 07/18/18 07:29 07/18/18 07:29 Assessment and Plan Plan: Imaging: Pelvis x-rays along with computed tomography scan images and report were reviewed. No acute fractures were noted. Obvious arthritic and spondylitic changes of the lumbar spine are present Assessment: 1. Gait dysfunction 2. History of frequent falls 3. Lumbar degenerative disease 4. Multiple medical comorbidities Plan: I was able to discuss the case, including both physical exam findings imaging studies of Dr. Rutherford. No orthopedic surgical intervention needed at this time. Due to the history of frequent falls and gait dysfunction, patient would benefit from rehab for daily therapy and strengthening. Neurology recommendations Internal medicine recommendations PT/OT evaluation GI and DVT prophylaxis per medical recommendations We'll be available for any further questions regarding this patient Time with Patient: Less than 30
[2018-07-18 09:13] LABS: Eosinophils # (M) 0.24 k/uL (0-0.7); Lymphocytes # (M) 5.04 k/uL (1.0-4.8); Myelocytes # (M) 0.12 k/uL (0); Myelocytes % 1 %; Neutrophils # (M) 6.24 k/uL (1.3-7.7); Neutrophils % (M) 52 %; Nucleated Red Blood Cells 0 /100 WBC (0-0); Total Cells Counted 200
--- NOTE | 2018-07-18 09:37 | CT ---
EXAMINATION TYPE: CT brain wo con DATE OF EXAM: 07/18/2018 COMPARISON: Prior CT brain 07/16/2018 HISTORY: TIA CT DLP: 868.7 mGycm Automated exposure control for dose reduction was used. Helical imaging through the brain. FINDINGS: No significant interval change. IMPRESSION: STABLE EXAM, NO ACUTE ABNORMALITY.
--- NOTE | 2018-07-18 09:40 | US ---
EXAMINATION TYPE: US carotid duplex BILAT DATE OF EXAM: 07/18/2018 COMPARISON: NONE CLINICAL HISTORY: TIA. TIA, pt fell and hit head EXAM MEASUREMENTS: RIGHT: Peak Systolic Velocity (PSV) cm/sec ----- Right CCA: 76.8 ----- Right ICA: 72.3 ----- Right ECA: 77.9 ICA/CCA ratio: 0.9 RIGHT: End Diastole cm/sec ----- Right CCA: 13.1 ----- Right ICA: 12.1 ----- Right ECA: 0.0 LEFT: Peak Systolic Velocity (PSV) cm/sec ----- Left CCA: 75.8 ----- Left ICA: 92.2 ----- Left ECA: 95.6 ICA/CCA ratio: 1.2 LEFT: End Diastole cm/sec ----- Left CCA: 8.6 ----- Left ICA: 15.3 ----- Left ECA: 0.0 VERTEBRALS (direction of flow): Right Vertebral: Antegrade Left Vertebral: Antegrade Rhythm: Normal No significant stenosis seen Grayscale, color Doppler, spectral Doppler imaging performed of the carotid arteries. Waveform analys is does not show significant stenosis of the proximal internal carotid arteries. Atheromatous changes are present and mild. IMPRESSION: No hemodynamic significant stenosis of the proximal internal carotid arteries bilaterall y by Doppler criteria, an indirect measurement of carotid stenosis Criteria for Assigning % of Stenosis / Diameter reduction (Estimation based on the indirect measurements of the internal carotid artery velocities (ICA PSV). 1. Normal (no stenosis)=ICA PSV < 125 cm/s: ratio < 2.0: ICA EDV<40 cm/s. 2. Less than 50% stenosis=ICA PSV < 125 cm/s: ratio < 2.0: ICA EDV<40 cm/s. 3. 50 to 69% stenosis=ICA PSV of 125 to 230 cm/s: ration 2.0 ? 4.0: ICA EDV 40-100 cm/s. 4. Greater than 70% stenosis to near occlusion= ICA PSV > 230 cm/s: ratio > 4.0: ICA EDV > 100 cm/s. 5. Near occlusion= ICA PSV velocities may be low or undetectable: variable ratio and ICA EDV. 6. Total occlusion=unable to detect flow.
[2018-07-18 11:31] LABS: Glucose,Whole Blood 122 mg/dL (75-99)
[2018-07-18 16:58] LABS: Glucose,Whole Blood 89 mg/dL (75-99)
--- NOTE | 2018-07-18 17:19 | EEG ---
ELECTROENCEPHALOGRAM REPORT DATE OF SERVICE: 07/18/2018. REASON FOR TESTING: Weakness and falls and history of stroke. DESCRIPTION OF THE PROCEDURE: This EEG was performed using a 21 channel digital electroencephalograph, following international 10-20 system. DESCRIPTION OF THE RECORDING: From the beginning of the tracing, with patient's eyes closed, the background rhythm was mostly consisting of 8 Hz alpha frequency in the posterior occipital leads. No obvious asymmetry is seen. Photic stimulation was performed with a good driving response seen. No pathological waves were elicited. Hyperventilation was not performed. Rare movement artifacts are seen. The patient remains awake throughout the tracing. No epileptiform discharges were seen. His EKG lead showed an irregularly irregular rhythm with a normal rate. INTERPRETATION: This awake EEG can be considered within normal limits except his EKG lead showed an irregularly irregular rhythm with a normal rate. No epileptiform discharges were seen. The absence of epileptiform discharges does not rule out the diagnosis of epilepsy; therefore clinical correlation is recommended. MMODILON / TRAVIS: [id number] /
--- NOTE | 2018-07-18 19:36 | P.PN ---
Subjective Progress Note Date: 07/18/18 Principal diagnosis: falls Neurology is following on a 88-year-old male with recent history of fall, generalized weakness who presented to the ED via primary care physician referral for possible TIA. 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 Patient states he has been having difficulty ambulating at home and reports increasing events of trips and falls as well as loss of balance when attempting to change directions work with quick movement. 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 Patient is a difficult historian as he did have difficulty without hearing aids present during the interview. Patient did convey that he does not have any new unilateralizing and weakness. He states that his lower extremities have been progressively becoming weaker over the last several weeks. During previous falls, patient believes he struck his head on the pavement at least twice but after several minutes returned to baseline each time. Pertinent history includes multiple TIA. Venous Doppler study was negative. CT scan of the pelvis was done which showed no acute fracture, orthopedics on consult. CT brain #1 was negative for acute process. Repeat CT #2 was also negative for acute process. Carotid Doppler was negative for hemodynamically significant stenosis. EEG was normal with regard to neurological components, it did note cardiac arrhythmia during testing. Defer to cardiology for further recommendations as well as management by primary team. Patient was alert and oriented 3, supine in bed, resting in no acute distress. No family or visitors were in the room. Objective - Vital Signs Vital signs: Vital Signs Temp 97.6 F 07/18/18 15:06 Pulse 67 07/18/18 15:06 Resp 16 07/18/18 15:06 BP 117/57 07/18/18 15:06 Pulse Ox 91 L 07/18/18 15:06 Intake & Output 07/18/18 07/18/18 07/19/18 06:59 18:59 06:59 Intake Total 1200 Balance 1200 Weight 86 kg Intake: Oral 1200 Other: # Voids 3 1 # Bowel Movements 2 - Exam General appearance: Alert & oriented x3, no apparent distress. Head: Atraumatic, normocephalic, normal inspection Eyes: Well appearance, PERRLA, EOMI. Absent scleral icterus, conjunctival injection, nystagmus, periorbital swelling. Ear, nose and throat: Normal exam, mucous membranes moist Neck: Normal inspection, absent tenderness, lymphadenopathy. Respiratory: No increased work of breathing Cardiovascular: Regular rate, rhythm GI/abdominal: No guarding Extremities: bilateral weak lower extremities, upper extremities right stronger than left. Able to move all extremities. Neurological: cranial nerves II through XII intact no lateralizing weakness no seizure activity noted on physical exam no pronator drift and no nystagmus. Left lower extremity: 3+/5 Right lower extremity: 3+/5 Left upper extremity: 4-/5 Right upper extremity: 4-/5 Sensation: Left lower extremity: normal Right lower extremity: normal Left upper extremity: normal Right upper extremity:normal Psychological: Mood and Affect appropriate for setting - Labs CBC & Chem 7: 07/18/18 07:29 07/18/18 07:29 Labs: Abnormal Lab Results - Last 24 Hours (Table) 07/16/18 07/17/18 07/18/18 Range/Units 19:12 21:24 07:05 WBC (3.8-10.6) k/uL Lymphocytes # (Manual) (1.0-4.8) k/uL Myelocytes # (Manual) (0) k/uL PT (9.0-12.0) sec INR (<1.2) Chloride (98-107) mmol/L Glucose (74-99) mg/dL POC Glucose (mg/dL) 233 H 125 H (75-99) mg/dL Hemoglobin A1c 6.2 H (4.0-6.0) % Creatine Kinase (55-170) U/L 07/18/18 07/18/18 07/18/18 Range/Units 07:29 07:29 07:29 WBC 12.0 H (3.8-10.6) k/uL Lymphocytes # (Manual) 5.04 H (1.0-4.8) k/uL Myelocytes # (Manual) 0.12 H (0) k/uL PT 20.3 H (9.0-12.0) sec INR 2.2 H (<1.2) Chloride 109 H (98-107) mmol/L Glucose 124 H (74-99) mg/dL POC Glucose (mg/dL) (75-99) mg/dL Hemoglobin A1c (4.0-6.0) % Creatine Kinase 289 H (55-170) U/L 08/23/18 Range/Units 11:23 WBC (3.8-10.6) k/uL Lymphocytes # (Manual) (1.0-4.8) k/uL Myelocytes # (Manual) (0) k/uL PT (9.0-12.0) sec INR (<1.2) Chloride (98-107) mmol/L Glucose (74-99) mg/dL POC Glucose (mg/dL) 122 H (75-99) mg/dL Hemoglobin A1c (4.0-6.0) % Creatine Kinase (55-170) U/L Assessment and Plan (1) Debility Narrative/Plan: Patient's current status does not appear to be neurological in etiology. Patient was noted to have cardiac arrhythmia during EEG testing. Further, patient's symptoms appear more consistent with general debility and multifactorial with regard to patient's concurrent comorbidities involving polio and prior CVA. Neurological workup has been unremarkable inclusive of 2 CT of the brain imaging, carotid Doppler and EEG for neurological findings. Recommend cardiology consult/reconsult to evaluate patient's arrhythmia noted on EEG findings. Defer further management to primary team. Current Visit: Yes Status: Acute Code(s): R53.81 - OTHER MALAISE SNOMED Code(s): 88117166 (2) Weakness Current Visit: Yes Status: Acute Code(s): R53.1 - WEAKNESS SNOMED Code(s) : 54038308 (3) Multiple falls Narrative/Plan: fall risk procedures per protocol Current Visit: Yes Status: Acute Code(s): R29.6 - REPEATED FALLS SNOMED Code(s): 251031697 Plan: STATUS: Patient will be cleared for discharge from a neurological standpoint. Patient to contact our office within 10 days for follow up. I have discussed the plan of care with the physician prior to implementation and he agrees with the plan as implemented.
[2018-07-18] MEDS: ATORVASTATIN 10 MG TAB PO SCH (20:46)
[2018-07-18] MEDS: WARFARIN 5 MG TAB PO SCH (20:47)
[2018-07-18] MEDS: MELATONIN 3 MG TABLET PO SCH (20:47)
[2018-07-18 21:33] LABS: Glucose,Whole Blood 127 mg/dL (75-99)
[2018-07-19] MEDS: HYDROcodone/APAP 7.5-325MG 1 EACH TAB PO PRN ×3 (04:30→16:01)
[2018-07-19 07:47] VITALS: TEMP 97.5
[2018-07-19 07:48] LABS: Glucose,Whole Blood 128 mg/dL (75-99)
[2018-07-19] MEDS: INSULIN ASPART 100 UNIT/ML 1 ML 10 ML VIAL SQ SCH ×2 (07:53→12:47)
[2018-07-19] MEDS: glipiZIDE 5 MG TAB PO SCH (08:33)
[2018-07-19] MEDS: amLODIPine 5 MG TAB PO SCH (08:42)
[2018-07-19] MEDS: PANTOPRAZOLE 40 MG TABLET PO SCH (08:42)
[2018-07-19] MEDS: hydrALAZINE HCL 25 MG TAB PO SCH (08:44)
[2018-07-19] MEDS: DIGOXIN 125 MCG TAB PO SCH (08:44)
[2018-07-19] MEDS: LISINOPRIL 20 MG TAB PO SCH (08:44)
[2018-07-19] MEDS: METOPROLOL SUCCINATE (ER) 25 MG TAB.ER.24H PO SCH (08:45)
[2018-07-19] MEDS: metFORMIN 500 MG TAB PO SCH (08:45)
[2018-07-19] MEDS: POTASSIUM CHLORIDE ER 20 MEQ TAB.ER PO SCH (08:45)
[2018-07-19 09:57] LABS: INR 1.6 (<1.2); Prothrombin Time 14.5 sec (9.0-12.0)
[2018-07-19 10:14] LABS: HGB 14.7 gm/dL (13.0-17.5); MCH 30.1 pg (25.0-35.0); MCHC 31.2 g/dL (31.0-37.0); MCV 96.5 fL (80.0-100.0); Platelet Count 199 k/uL (150-450); RBC 4.87 m/uL (4.30-5.90); RDW 13.6 % (11.5-15.5); WBC 12.2 k/uL (3.8-10.6)
[2018-07-19 10:15] LABS: Anion Gap 10 mmol/L; Blood Urea Nitrogen 16 mg/dL (9-20); Calcium 9.3 mg/dL (8.4-10.2); Carbon Dioxide 25 mmol/L (22-30); Chloride 105 mmol/L (98-107); Creatine Kinase 224 U/L (55-170); Glucose 216 mg/dL (74-99); Potassium 4.6 mmol/L (3.5-5.1); Sodium 140 mmol/L (137-145)
[2018-07-19 10:53] LABS: Band Neutrophils % 1 %; Eosinophils # (M) 0.24 k/uL (0-0.7); Lymphocytes # (M) 5.61 k/uL (1.0-4.8); Monocytes # (M) 0.49 k/uL (0-1.0); Neutrophils % (M) 47 %; Nucleated Red Blood Cells 0 /100 WBC (0-0); Reactive Lymphocytes Present; Total Cells Counted 100
[2018-07-19 12:09] LABS: Glucose,Whole Blood 100 mg/dL (75-99)
[2018-07-19] MEDS: IOPAMIDOL-300 CONTRAST 30 ML VIAL (ORAL USE) PO PRN ×2 (13:19→14:11)
--- NOTE | 2018-07-19 15:03 | CT ---
EXAMINATION TYPE: CT abdomen pelvis wo con DATE OF EXAM: 07/19/2018 HISTORY: lower abdominal pain CT DLP: 760.9 mGycm. Automated Exposure Control for Dose Reduction was Utilized. TECHNIQUE: CT scan of the abdomen and pelvis is performed with oral but without IV contrast. COMPARISON: CT abdomen pelvis December 05, 2011 FINDINGS: Within the limitations of a non-contrast study, the following observations are made. LUNG BASES: There is partial visualization of cardiomegaly with severe three-vessel coronary artery c alcification. Elevated left hemidiaphragm is redemonstrated. There is bibasilar linear scarring and/o r atelectasis redemonstrated. LIVER/GB: No significant abnormality is appreciated. PANCREAS: No significant abnormality is seen. SPLEEN: No significant abnormality is seen. ADRENALS: No significant abnormality is seen. KIDNEYS: There is single 1 mm calculus lower pole level right kidney coronal image 50 felt present. T here may be second additional 1 mm calculus lower pole level left kidney coronal image 58. Some corti khalif thinning in both kidneys is seen. There are few scattered low dense lesions favoring simple cysts for reference 2.7 cm lesion anteriorly mid pole level right kidney Hounsfield units average to and 3 .3 cm lesion posteriorly lower pole level left kidney Hounsfield units average 11. BOWEL: Oral contrast seen in nondistended stomach and duodenal sweep. Oral contrast extends into term inal ileum. There is no suspicious small or large bowel dilatation. Fecal material is seen in nondist ended colon. Amount of fecal material throughout the entire colon is mildly prominent. There is redun dant sigmoid colon with scattered diverticulosis. There is no convincing evidence for acute diverticu litis. Redundant right colon is also felt present with some diverticula. GENITAL ORGANS: No gross abnormality seen. LYMPH NODES: No greater than 1cm abdominal or pelvic lymph nodes are appreciated. OSSEOUS STRUCTURES: Osseous structures are demineralized. There is moderate to severe multilevel spur ring throughout the spine. There is multilevel moderate disc space narrowing in the lumbar spine with relative sparing of L3-L4 level. Multilevel facet arthropathy is present lower lumbar levels. There are bilateral laminectomy defects and spinous process resection in the lower lumbar spine. OTHER: There is moderate calcified plaque of aorta extending into branch vessels IMPRESSION: Colonic diverticulosis without CT evidence for acute diverticulitis. No bowel obstruction is seen. Mild diffuse colonic fecal stasis is felt present.
--- NOTE | 2018-07-19 15:41 | P.DS ---
Providers Date of admission: 07/16/18 22:11 Expected date of discharge: 07/19/18 Attending physician: Chelsey Beasley Consults: 07/16/18 22:12 Consult Physician Routine Consulting Provider: Rahul Patterson Consult Reason/Comments: weakness Do you want consulting provider notified?: Yes 07/17/18 11:52 Consult Physician Routine Consulting Provider: Benito Rutherford Consult Reason/Comments: eval poss fx from fall Do you want consulting provider notified?: Yes Primary care physician: Mariola [facility] Course: Final DIagnoses: -Follow weakness, possibly acute TIA involving the sciatic a right hemispheric lesion -Muscle skeletal sprain and severe hip pain status post fall -Rhabdomyolysis, status post fall, improved -Left leg swelling, negative DVT -Acute renal failure -Diabetes mellitus type 2 -History of multiple falls -Gait dysfunction -History of CHF -Hypertension -History of back surgery Hospital course: This is an 88 yr old gentleman admitted with fall and weakness , left-sided weakness ,possible TIA and multiple other medical issues. Neurology workup completed. Abdominal CT reporting diverticulosis, no obstruction. Computed tomography scan of pelvis negative for fracture, brain CT nonacute, carotid Doppler no hemodynamic significant stenosis. Evaluated by orthopedic surgery, neurology, PT/OT. No surgical interventions recommended at this time .Significant clinical improvement. Cleared by all consults for discharge. Patient is being discharged to [facility] subacute rehab in stable condition with guarded prognosis. EXAM:GENERAL: Alert and oriented 3, no acute distress.CV: Regular S1 and S2. LUNGS: Bilateral lungs diminished. ABD.Soft, nontender, +BS.Neuro:no neuro deficits. The impression and plan of care has been dictated as directed. : I performed a history and examination of this patient, discussed the same with the dictator. I agree with the dictator's note ,documented as a scribe. Any additional findings or plans will be noted. Time taken: 35 minutes Patient Condition at Discharge: Stable Plan - Discharge Summary New Discharge Prescriptions: New HYDROcodone/APAP 7.5-325MG [[place] 7.5-325] 1 each PO Q6HR PRN #12 tab PRN Reason: Pain INSULIN LISPRO (HumaLOG) [humaLOG] 0 unit SQ ACHS #1 vial Melatonin 3 mg PO HS tablet Pantoprazole [Protonix] 40 mg PO AC-BRKFST tablet.dr Continue amLODIPine [Norvasc] 5 mg PO DAILY Simvastatin [Zocor] 20 mg PO HS metFORMIN HCL [Glucophage] 500 mg PO TID Potassium Chloride [Klor-Con 20] 20 meq PO DAILY Metoprolol Succinate (ER) [Toprol XL] 25 mg PO BID glipiZIDE [Glucotrol] 2.5 mg PO AC-BRKFST Enalapril Maleate [Vasotec] 20 mg PO BID Digoxin [Digitek] 125 mcg PO DAILY Warfarin [Coumadin] 5 mg PO HS hydrALAZINE HCL [Apresoline] 25 mg PO BID Trospium Chloride [Sanctura XR] 60 mg PO DAILY Discontinued Hydrocodone/Acetaminophen [Hydrocodone/Acetaminophen 7.5-300] 1 tab PO Q6HR PRN PRN Reason: Pain Discharge Medication List Digoxin [Digitek] 125 mcg PO DAILY 07/10/15 [History] Enalapril Maleate [Vasotec] 20 mg PO BID 07/10/15 [History] Metoprolol Succinate (ER) [Toprol XL] 25 mg PO BID 07/10/15 [History] Potassium Chloride [Klor-Con 20] 20 meq PO DAILY 07/10/15 [History] Simvastatin [Zocor] 20 mg PO HS 07/10/15 [History] amLODIPine [Norvasc] 5 mg PO DAILY 07/10/15 [History] glipiZIDE [Glucotrol] 2.5 mg PO AC-BRKFST 07/10/15 [History] metFORMIN HCL [Glucophage] 500 mg PO TID 07/10/15 [History] Warfarin [Coumadin] 5 mg PO HS 05/14/17 [History] Trospium Chloride [Sanctura XR] 60 mg PO DAILY 07/16/18 [History] hydrALAZINE HCL [Apresoline] 25 mg PO BID 07/16/18 [History] HYDROcodone/APAP 7.5-325MG [[place] 7.5-325] 1 each PO Q6HR PRN #12 tab 07/19/18 [ Rx] INSULIN LISPRO (HumaLOG) [humaLOG] 0 unit SQ ACHS #1 vial 07/19/18 [Rx] Melatonin 3 mg PO HS tablet 07/19/18 [Rx] Pantoprazole [Protonix] 40 mg PO AC-BRKFST tablet. 07/19/18 [Rx] Follow up Appointment(s)/Referral(s): Terence Hanson MD [Medical Doctor] - 1 Week Mariola Butler MD [Primary Care Provider] - 1 Week (After DC from subacute rehab) Mauro Lim MD [STAFF PHYSICIAN] - 3 Days (While at [facility]) Rahul Patterson MD [STAFF PHYSICIAN] - 1 Week Activity/Diet/Wound Care/Special Instructions: [place] Diet: Consistent carb Accu-Cheks before meals and at bedtime Activity: As tolerated. CBC, BMP in 3 days Daily PT INR
[2018-07-19 16:11] VITALS: BP 125/65; PULSE 51; RESP 18
[2018-07-22] MEDS ORDERED: metFORMIN 500 MG TAB PO SCH (22:00)
== END 2018-07-19 16:13 | DRG 69 ==
LOC: EC 17:37 → 4MS4W 22:11
PROVIDERS: ADMIT Hospitalist; ATTEND Hospitalist
DX: G45.9 Transient cerebral ischemic attack, unspecified (principal); I69.354 Hemiplegia and hemiparesis following cerebral infarction affecting left non-dominant side; N17.9 Acute kidney failure, unspecified; I11.0 Hypertensive heart disease with heart failure; I50.9 Heart failure, unspecified; S73.102A Unspecified sprain of left hip, initial encounter; S73.101A Unspecified sprain of right hip, initial encounter; I48.91 Unspecified atrial fibrillation; E11.9 Type 2 diabetes mellitus without complications; R26.9 Unspecified abnormalities of gait and mobility; M51.36 Other intervertebral disc degeneration, lumbar region; D72.829 Elevated white blood cell count, unspecified; E78.5 Hyperlipidemia, unspecified; W01.0XXA Fall on same level from slipping, tripping and stumbling without subsequent striking against object, initial encounter; R29.6 Repeated falls; T79.6XXA Traumatic ischemia of muscle, initial encounter; R53.81 Other malaise; M79.89 Other specified soft tissue disorders; Y92.009 Unspecified place in unspecified non-institutional (private) residence as the place of occurrence of the external cause; B91 Sequelae of poliomyelitis; Z91.81 History of falling; Z79.01 Long term (current) use of anticoagulants; Z79.84 Long term (current) use of oral hypoglycemic drugs; Z79.899 Other long term (current) drug therapy; Z87.891 Personal history of nicotine dependence
CPT/HCPCS: 36415; 70450; 71046; 72125; 72170; 72192; 74176; 80048; 80053; 81003; 82550; 82553; 83036; 83090; 84484; 85025; 85610; 85730; 93005; 93880; 93970; 95816; 99285

== ENCOUNTER 2018-07-27 15:46 | Emergency (ER) | payer MEDICARE ==
[2018-07-27 15:55] VITALS: RESP 18
--- NOTE | 2018-07-27 15:56 | ED ---
General Adult HPI - General Stated complaint: FALL Time Seen by Provider: 07/27/18 15:46 Source: RN notes reviewed - History of Present Illness Initial comments: This is a 88-year-old male who [facility] Patient states he's there because he but unable to ambulate. Patient states he typically back in a chair and fell out bumped his head on the floor. Patient denies loss of consciousness patient denies being days. Patient states he has no neck pain. Patient denies numbness weakness. Patient is on Coumadin. Patient states he has no headache. Patient denies any bleeding. Patient states he also hit his left hip and his left hip is somewhat sore but he has full range of motion of the ankle knee and hip. Patient denies any chest pain difficult breathing shortness of breath. Patient denies any abdominal pain patient denies nausea vomiting diarrhea. Patient denies any other problems at this time. - Related Data Home Medications Medication Instructions Recorded Confirmed Digoxin [Digitek] 125 mcg PO DAILY@0600 07/10/15 07/27/18 Enalapril Maleate [Vasotec] 20 mg PO BID@,07/10/15 07/27/18 Metoprolol Succinate (ER) [Toprol 25 mg PO BID@,07/10/15 07/27/18 XL] Simvastatin [Zocor] 20 mg PO HS@2100 07/10/15 07/27/18 amLODIPine [Norvasc] 5 mg PO DAILY@0800 07/10/15 07/27/18 metFORMIN HCL [Glucophage] 1,000 mg PO DAILY@0700 07/10/15 07/27/18 Warfarin [Coumadin] 5 mg PO HS@1700 05/14/17 07/27/18 hydrALAZINE HCL [Apresoline] 25 mg PO BID@,07/16/18 07/27/18 Bisacodyl [Dulcolax] 10 mg RECTAL DAILY PRN 07/27/18 07/27/18 HYDROcodone/APAP 7.5-325MG [[place] 1 tab PO Q6H PRN 07/27/18 07/27/18 7.5-325] INSULIN LISPRO (HumaLOG) [humaLOG] See Protocol SQ 07/27/18 07/27/18 ACHS@07,11,1730,2130 Magnesium Hydroxide [Milk of 2,400 mg PO DAILY PRN 07/27/18 07/27/18 Magnesia] Melatonin 3 mg PO HS@2100 07/27/18 07/27/18 Na Phos,M-B/Na Phos,Di-Ba [Fleet 133 ml RECTAL ONCE PRN 07/27/18 07/27/18 Adult] Pantoprazole [Protonix] 40 mg PO DAILY@0607/27/18 07/27/18 Potassium Chloride [Klor-Con 20 meq PO HS@1700 07/27/18 07/27/18 Packets] Trospium Chloride [Sanctura] 60 mg PO DAILY@59907/27/18 07/27/18 glipiZIDE XL [Glucotrol Xl] 2.5 mg PO DAILY@0707/27/18 07/27/18 metFORMIN HCL [Glucophage] 500 mg PO BID@11,17 07/27/18 07/27/18 Allergies Allergy/AdvReac Type Severity Reaction Status Date / Time No Known Allergies Allergy Verified 07/27/18 16:19 Review of Systems ROS Statement: Those systems with pertinent positive or pertinent negative responses have been documented in the HPI. ROS Other: All systems not noted in ROS Statement are negative. Past Medical History Past Medical History: Atrial Fibrillation, Heart Failure, Diabetes Mellitus, Hyperlipidemia, Hypertension History of Any Multi-Drug Resistant Organisms: None Reported Past Surgical History: Back Surgery, Hernia Repair Past Anesthesia/Blood Transfusion Reactions: No Reported Reaction Past Psychological History: No Psychological Hx Reported Smoking Status: Never smoker Past Alcohol Use History: Rare Past Drug Use History: None Reported General Exam - General Exam Comments Initial Comments: GENERAL: Patient is well-developed and well-nourished. Patient is nontoxic and well- hydrated and is in mild distress. ENT: Neck is soft and supple. No significant lymphadenopathy is noted. Oropharynx is clear. Moist mucous membranes. Neck has full range of motion without eliciting any pain. EYES: The sclera were anicteric and conjunctiva were pink and moist. Extraocular movements were intact and pupils were equal round and reactive to light. Eyelids were unremarkable. PULMONARY: Unlabored respirations. Good breath sounds bilaterally. No audible rales rhonchi or wheezing was noted. CARDIOVASCULAR: There is a regular rate and rhythm without any murmurs gallops or rubs. ABDOMEN: Soft and nontender with normal bowel sounds. No palpable organomegaly was noted. There is no palpable pulsatile mass. SKIN: Skin is clear with no lesions or rashes and otherwise unremarkable. NEUROLOGIC: Patient is alert and oriented x3. Cranial nerves II through XII are grossly intact. Motor and sensory are also intact. Normal speech, volume and content. Symmetrical smile. MUSCULOSKELETAL: Normal extremities with adequate strength and full range of motion. No lower extremity swelling or edema. No calf tenderness. Patient has some very minimal tenderness to palpation of the lateral left hip however he has full range of motion of the hip. LYMPHATICS: No significant lymphadenopathy is noted PSYCHIATRIC: Normal psychiatric evaluation. Normal interpersonal interactions appears functionally intact in deals appropriately with others. No signs of depression. No signs of anxiety. Course Vital Signs 07/27/18 15:50 Temperature 98.3 F Pulse Rate 54 L Respiratory 18 Rate Blood Pressure 146/70 O2 Sat by Pulse 96 Oximetry Medical Decision Making - Medical Decision Making CT of the brain and C-spine are negative. X-ray of the left hip and pelvis are negative. - Lab Data Result diagrams: 07/27/18 16:06 Lab Results 07/27/18 07/27/18 Range/Units 16:06 16:06 WBC 13.6 H (3.8-10.6) k/uL RBC 4.90 (4.30-5.90) m/uL Hgb 15.5 (13.0-17.5) gm/dL Hct 46.3 (39.0-53.0) % MCV 94.5 (80.0-100.0) fL MCH 31.7 (25.0-35.0) pg MCHC 33.5 (31.0-37.0) g/dL RDW 13.3 (11.5-15.5) % Plt Count 205 (150-450) k/uL Neutrophils % 45 % Lymphocytes % 46 % Monocytes % 4 % Eosinophils % 2 % Basophils % 0 % Neutrophils # 6.1 (1.3-7.7) k/uL Lymphocytes # 6.2 H (1.0-4.8) k/uL Monocytes # 0.6 (0-1.0) k/uL Eosinophils # 0.3 (0-0.7) k/uL Basophils # 0.1 (0-0.2) k/uL Manual Slide Review Performed RBC Morphology Normal PT 21.9 H (9.0-12.0) sec INR 2.4 H (<1.2) APTT 31.3 H (22.0-30.0) sec Disposition Clinical Impression: Fall, Chronic hip pain Disposition: HOME SELF-CARE Condition: Good Instructions: Fall Prevention for Older Adults (ED) Is patient prescribed a controlled substance at d/c from ED?: No Referrals: Mariola Butler MD [Primary Care Provider] - 1-2 days Time of Disposition: 16:39
[2018-07-27 16:17] LABS: Basophils # (A) 0.1 k/uL (0-0.2); Basophils % (A) 0 %; Eosinophils # (A) 0.3 k/uL (0-0.7); Eosinophils % (A) 2 %; HCT 46.3 % (39.0-53.0); HGB 15.5 gm/dL (13.0-17.5); Lymphocytes % (A) 46 %; MCH 31.7 pg (25.0-35.0); MCHC 33.5 g/dL (31.0-37.0); MCV 94.5 fL (80.0-100.0); Mean Platelet Volume 8.2; Monocytes # (A) 0.6 k/uL (0-1.0); Monocytes % (A) 4 %; Neutrophils # (A) 6.1 k/uL (1.3-7.7); Neutrophils % (A) 45 %; Platelet Count 205 k/uL (150-450); RDW 13.3 % (11.5-15.5); WBC 13.6 k/uL (3.8-10.6)
[2018-07-27 16:20] LABS: Lymphocytes # (A) 6.2 k/uL (1.0-4.8)
[2018-07-27 16:25] LABS: INR 2.4 (<1.2); Partial Thromboplastin Time 31.3 sec (22.0-30.0); Prothrombin Time 21.9 sec (9.0-12.0)
--- NOTE | 2018-07-27 16:39 | XR ---
EXAMINATION TYPE: AP view pelvis and 2 views left hip DATE OF EXAM: 07/27/2018 COMPARISON: NONE HISTORY: 88-year-old male left hip pain after fall FINDINGS: Exam is limited due to marked osteopenia, external rotation of the hips obscuring the lower femoral n cassandra regions, and patient panniculus hanging over the hips. There is mild degenerative change of both hips. No displaced fractures are seen. Extensive vascular c alcifications. IMPRESSION: Multiple exam limitations. No displaced fracture. If patient nonweightbearing, MRI can provide more s ensitive evaluation.
[2018-07-27 16:46] LABS: ALT 28 U/L (21-72); AST 45 U/L (17-59); Alkaline Phosphatase 48 U/L (38-126); Anion Gap 13 mmol/L; Blood Urea Nitrogen 16 mg/dL (9-20); Calcium 9.2 mg/dL (8.4-10.2); Carbon Dioxide 20 mmol/L (22-30); Chloride 105 mmol/L (98-107); Glucose 150 mg/dL (74-99); Sodium 138 mmol/L (137-145); Total Bilirubin 0.6 mg/dL (0.2-1.3); Total Protein 6.9 g/dL (6.3-8.2)
--- NOTE | 2018-07-27 17:21 | CT ---
EXAMINATION TYPE: CT brain aureliaine wo con DATE OF EXAM: 07/27/2018 COMPARISON: Brain 07/18/2018 HISTORY: 88-year-old male with pain CT DLP: 1018.80, 574.60 mGycm Automated exposure control for dose reduction was used. Technique: Examination of the head was done in axial plane without intravenous contrast. Coronal and sagittal reconstructions performed. CT of the cervical spine was obtained in axial plane without intravenous injection of contrast mater ial. Coronal and sagittal reformatted images were obtained from the axial views for evaluation of f ractures, spinal alignment and canal. FINDINGS: Head: There is no evidence of acute intracranial hemorrhage, acute ischemic changes, mass, mass-effect, or extra-axial fluid collection. There is no effacement of cerebral sulci or basal subarachnoid cister ns. There is no hydrocephalus. There is no midline shift. Bonner-white matter distinction is preserv ed. Moderate generalized supratentorial volume loss and mild white matter hypodensities in both cerebral hemispheres. Prosthetic left globe. Trace mucosal thickening ethmoid air cells and maxillary sinuses. Mastoid air cells well pneumatized. Cervical spine: No craniocervical junction abnormality, predental space widening, or prevertebral soft tissue swellin g. Degenerative changes at the C1 dens articulation. There is grade 1 anterolisthesis at C7-T1 and T2-T3 secondary to hypertrophic facet arthropathy. Severe disc/endplate degenerative change from C3 through C7 levels. Hypertrophic facet and uncovertebral joint arthropathy throughout. Variable moderate spinal canal stenoses throughout. Additional variable with severe neuroforaminal stenoses throughout. Sagittal and coronal reformatted images confirm above findings. COMBINED IMPRESSION: 1. No acute intracranial abnormality seen. 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 2. No acute fracture of the cervical spine. 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 Degenerative grade 1 anterolisthesis at C7-T1 a nd T2-T3.
[2018-07-27 18:19] VITALS: BP 172/78; PULSE 52; TEMP 97.9
[2018-07-31 06:44] LABS: Potassium 5.2 mmol/L (3.5-5.1)
== END 2018-07-27 18:39 | disposition home or self-care (01) ==
LOC: EC 15:46
DX: Z04.3 Encounter for examination and observation following other accident (principal); G89.29 Other chronic pain; M25.559 Pain in unspecified hip; I48.91 Unspecified atrial fibrillation; I11.0 Hypertensive heart disease with heart failure; I50.9 Heart failure, unspecified; E78.5 Hyperlipidemia, unspecified; E11.9 Type 2 diabetes mellitus without complications; Z79.01 Long term (current) use of anticoagulants; Z79.4 Long term (current) use of insulin; Z79.899 Other long term (current) drug therapy; W07.XXXA Fall from chair, initial encounter; Y92.129 Unspecified place in nursing home as the place of occurrence of the external cause
CPT/HCPCS: 36415; 70450; 72125; 73502; 80053; 85025; 85610; 85730; 99284

== ENCOUNTER 2018-09-10 12:23 | Emergency (ER) | payer MEDICARE ==
[2018-09-10 12:49] VITALS: RESP 18
--- NOTE | 2018-09-10 14:19 | ED ---
General Adult HPI - General Chief complaint: Abdominal Pain Stated complaint: back and groin pain Source: patient, family Mode of arrival: wheelchair Limitations: no limitations - History of Present Illness Initial comments: Dictation was produced using [employer] dictation software. please excuse any grammatical, word or spelling errors. Chief Complaint: 88-year-old male past medical history of recent CVA presents with right-sided groin pain History of Present Illness: A 88-year-old male with multiple comorbidities presents chief complaint of right-sided groin pain. He states the pain is in his right groin region radiating to his testicle. He also states that he does have some right lower quadrant tenderness. He's been having feeling nauseated but no emesis. Has any diarrhea. Patient does complain of some burning with urination. Patient has been feeling sick for about a week now. He has history of urinary tract infection. Patient does not have a history of appendectomy. She denies history of multiple hernia surgeries since childhood. The ROS documented in this emergency department record has been reviewed and confirmed by me. Those systems with pertinent positive or negative responses have been documented in the HPI. All other systems are other negative and/or noncontributory. - Related Data Home Medications Medication Instructions Recorded Confirmed Digoxin [Digitek] 125 mcg PO DAILY@0607/10/15 09/10/18 Enalapril Maleate [Vasotec] 20 mg PO BID@,07/10/15 09/10/18 Metoprolol Succinate (ER) [Toprol 25 mg PO BID@,07/10/15 09/10/18 XL] Simvastatin [Zocor] 20 mg PO HS@2100 07/10/15 09/10/18 metFORMIN HCL [Glucophage] 1,000 mg PO DAILY@0707/10/15 09/10/18 hydrALAZINE HCL [Apresoline] 25 mg PO BID@,07/16/18 09/10/18 Trospium Chloride [Sanctura] 60 mg PO DAILY@0600 07/27/18 09/10/18 glipiZIDE XL [Glucotrol Xl] 2.5 mg PO DAILY@0700 07/27/18 09/10/18 HYDROcodone/APAP 7.5-325MG [[place] 1 tab PO Q6H PRN 09/10/18 09/10/18 7.5-325] Nitroglycerin Sl Tabs [Nitrostat] 0.4 mg SUBLINGUAL Q5M PRN 09/10/18 09/10/18 Potassium Chloride ER [K-Dur 20] 20 meq PO DAILY 09/10/18 09/10/18 Warfarin Sodium 6 mg PO HS 09/10/18 09/10/18 Allergies Allergy/AdvReac Type Severity Reaction Status Date / Time No Known Allergies Allergy Verified 09/10/18 14:29 Review of Systems ROS Statement: Those systems with pertinent positive or pertinent negative responses have been documented in the HPI. ROS Other: All systems not noted in ROS Statement are negative. 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 History of Any Multi-Drug Resistant Organisms: None Reported Past Surgical History: Back Surgery, Hernia Repair Past Anesthesia/Blood Transfusion Reactions: No Reported Reaction Past Psychological History: No Psychological Hx Reported Smoking Status: Never smoker Past Alcohol Use History: Rare Past Drug Use History: None Reported General Exam - General Exam Comments Initial Comments: PHYSICAL EXAM: General Impression: Alert and oriented x3, not in acute distress HEENT: Normocephalic atraumatic, extra-ocular movements intact, pupils equal and reactive to light bilaterally, mucous membranes moist. Cardiovascular: Heart regular rate and rhythm, S1&S2 audible, no murmurs, rubs or gallops Chest: Lungs clear to auscultation bilaterally, no rhonchi, no wheeze, no rales Abdomen: Mild right lower quadrant abdominal tenderness. Musculoskeletal: Pulses present and equal in all extremities, no peripheral edema Motor: Power 5/5 bilaterally, no focal deficits noted Neurological: CN II-XII grossly intact, no focal motor or sensory deficits noted Skin: Intact with no visualized rashes Psych: Normal affect and mood : Mildly tender and enlarged right testicle. No scrotal edema or erythema. Limitations: no limitations Course Vital Signs 09/10/18 09/10/18 12:45 14:35 Temperature 98.4 F Pulse Rate 49 L 46 L Respiratory 18 18 Rate Blood Pressure 142/67 198/92 O2 Sat by Pulse 95 94 L Oximetry Medical Decision Making - Medical Decision Making ED course: 88 male presents with one-week history of right-sided groin pain and right lower quadrant abdominal pain. Vital signs upon arrival are within acceptable limits.Laboratory evaluation obtained. Patient has mild leukocytosis of 11.0 which is around his baseline. Metabolic panel is negative. Urinalysis negative. Scrotal ultrasound was obtained with Jeanie study however there wasn't an acute findings. No phthisis suggest epididymitis or orchitis. CT abdomen and pelvis shows no acute processes. Discussed patient that he has normal imaging studies and normal labs. He is told to follow-up with his PCP upon discharge. Patient told to try to limit his use of narcotic medications as he can be reason for him to have abdominal pain. Patient is understandable and agreeable to plan. He is agreeable to follow-up with PCP upon discharge. - Lab Data Result diagrams: 09/10/18 14:48 09/10/18 14:48 Lab Results 09/10/18 09/10/18 09/10/18 Range/Units 14:48 14:48 14:48 WBC 11.0 H (3.8-10.6) k/uL RBC 4.75 (4.30-5.90) m/uL Hgb 15.4 (13.0-17.5) gm/dL Hct 44.5 (39.0-53.0) % MCV 93.7 (80.0-100.0) fL MCH 32.3 (25.0-35.0) pg MCHC 34.5 (31.0-37.0) g/dL RDW 13.2 (11.5-15.5) % Plt Count 184 (150-450) k/uL Neutrophils % (Manual) 36 % Band Neutrophils % 1 % Lymphocytes % (Manual) 61 % Monocytes % (Manual) 1 % Eosinophils % (Manual) 1 % Neutrophils # (Manual) 4.00 (1.3-7.7) k/uL Lymphocytes # (Manual) 6.71 H (1.0-4.8) k/uL Monocytes # (Manual) 0.11 (0-1.0) k/uL Eosinophils # (Manual) 0.11 (0-0.7) k/uL Nucleated RBCs 0 (0-0) /100 WBC Manual Slide Review Performed RBC Morphology Normal Sodium 141 (137-145) mmol/L Potassium 4.7 (3.5-5.1) mmol/L Chloride 107 (98-107) mmol/L Carbon Dioxide 25 (22-30) mmol/L Anion Gap 9 mmol/L BUN 12 (9-20) mg/dL Creatinine 0.68 (0.66-1.25) mg/dL Est GFR (CKD-EPI)AfAm >90 (>60 ml/min/1.73 sqM) Est GFR (CKD-EPI)NonAf 87 (>60 ml/min/1.73 sqM) Glucose 97 (74-99) mg/dL Calcium 9.4 (8.4-10.2) mg/dL Total Bilirubin 0.5 (0.2-1.3) mg/dL AST 26 (17-59) U/L ALT 36 (21-72) U/L Alkaline Phosphatase 49 (38-126) U/L Total Protein 6.5 (6.3-8.2) g/dL Albumin 3.8 (3.5-5.0) g/dL Lipase 109 (23-300) U/L Urine Color Yellow Urine Appearance Clear (Clear) Urine pH 5.0 (5.0-8.0) Ur Specific [place] 1.008 (1.001-1.035) Urine Protein Negative (Negative) Urine Glucose (UA) Negative (Negative) Urine Ketones Negative (Negative) Urine Blood Negative (Negative) Urine Nitrite Negative (Negative) Urine Bilirubin Negative (Negative) Urine Urobilinogen <2.0 (<2.0) mg/dL Ur Leukocyte Esterase Negative (Negative) Disposition Clinical Impression: Abdominal pain Disposition: HOME SELF-CARE Instructions: Abdominal Pain (ED) Is patient prescribed a controlled substance at d/c from ED?: No Referrals: Mariola Butler MD [Primary Care Provider] - 1-2 days Time of Disposition: 16:56
[2018-09-10 15:05] LABS: Appearance,Urine Clear (Clear); Bilirubin,Urine Negative (Negative); Blood,Urine Negative (Negative); Color,Urine Yellow; Glucose,Urine (UA) Negative (Negative); Ketones,Urine Negative (Negative); Leukocyte Esterase,Urine Negative (Negative); Nitrite,Urine Negative (Negative); Protein,Urine Negative (Negative); Specific Gravity,Urine 1.008 (1.001-1.035); Urobilinogen,Urine <2.0 mg/dL (<2.0)
[2018-09-10 15:11] LABS: ALT 36 U/L (21-72); AST 26 U/L (17-59); Albumin 3.8 g/dL (3.5-5.0); Alkaline Phosphatase 49 U/L (38-126); Anion Gap 9 mmol/L; Blood Urea Nitrogen 12 mg/dL (9-20); Calcium 9.4 mg/dL (8.4-10.2); Carbon Dioxide 25 mmol/L (22-30); Chloride 107 mmol/L (98-107); Glucose 97 mg/dL (74-99); Lipase 109 U/L (23-300); Potassium 4.7 mmol/L (3.5-5.1); Sodium 141 mmol/L (137-145); Total Bilirubin 0.5 mg/dL (0.2-1.3); Total Protein 6.5 g/dL (6.3-8.2)
[2018-09-10 15:28] LABS: HCT 44.5 % (39.0-53.0); HGB 15.4 gm/dL (13.0-17.5); MCH 32.3 pg (25.0-35.0); MCHC 34.5 g/dL (31.0-37.0); MCV 93.7 fL (80.0-100.0); Mean Platelet Volume 7.8; Platelet Count 184 k/uL (150-450); RBC 4.75 m/uL (4.30-5.90); RDW 13.2 % (11.5-15.5)
[2018-09-10 15:48] LABS: Lymphocytes # (M) 6.71 k/uL (1.0-4.8); Neutrophils % (M) 36 %
[2018-09-10 15:50] LABS: Band Neutrophils % 1 %; Eosinophils # (M) 0.11 k/uL (0-0.7); Monocytes # (M) 0.11 k/uL (0-1.0); Nucleated Red Blood Cells 0 /100 WBC (0-0); Total Cells Counted 100
--- NOTE | 2018-09-10 16:05 | US ---
EXAMINATION TYPE: US scrotum with doppler. Grayscale and color Doppler Duplex imaging performed of t jacob scrotum. DATE OF EXAM: 09/10/2018 COMPARISON: NONE CLINICAL HISTORY: Pain. right groin pain and RLQ pain x 4 days EXAM MEASUREMENTS: TESTICLES: Right Testicle: 3.7 x 3.4 x 2.9 cm Left Testicle: 3.4 x 4.0 x 1.4 cm EPIDIDYMIS HEAD: Right Epididymis: 1.4 x 1.0 x 0.7 cm Left Epididymis: 1.2 x 0.9 x 0.9 cm Doppler performed to assess for testicular vascularity; good bilateral color flow and waveforms are s een. Presence of hydroceles: Yes Vascular waveforms noted to both testes. Testicular echotexture is homogenous and symmetric, serpiginous vasculature adjacent to the right juwan tis may represent small varicocele IMPRESSION: Bilateral hydroceles. Exam somewhat limited.
--- NOTE | 2018-09-10 16:47 | CT ---
EXAMINATION TYPE: CT abdomen pelvis w con DATE OF EXAM: 09/10/2018 COMPARISON: 07/19/2018 HISTORY: Mid abdominal pain. CT DLP: 1103.8 mGycm Automated exposure control for dose reduction was used. TECHNIQUE: Helical acquisition of images was performed from the lung bases through the pelvis. CONTRAST: Performed without Oral Contrast and with IV Contrast, patient injected with 100ml mL of Isovue 300. FINDINGS: There is some mild infiltrate and atelectasis at the posterior lung bases. Heart is enlarged. Stomach appears normal. Liver shows no focal defect. Spleen appears normal. Bile ducts are not dilate d. There is no evidence of pancreatic mass. Gallbladder measures 3 cm. There is no adrenal mass. There are bilateral renal cortical cysts that measure up to 3 cm. There is no hydronephrosis. There is no evidence of solid renal mass. Ureters are not dilated. Bladder distend s smoothly. There is minimal left inguinal hernia. I see no intestinal wall thickening. There is no e vidence of a bowel obstruction. There is no ascites. There is no free air. There is no mesenteric bryn ma. There are a few sigmoid diverticula. There is no evidence of diverticulitis. There is moderate sp ondylotic change in the lumbar spine. I see no focal bone destruction. IMPRESSION: SIGMOID DIVERTICULOSIS WITHOUT DIVERTICULITIS. There is increasing linear infiltrate and atelectasis at the lung bases compared to old exam. Cardiomegaly.
[2018-09-10 17:14] VITALS: BP 187/84; PULSE 47; TEMP 97.9
== END 2018-09-10 17:14 | disposition home or self-care (01) ==
LOC: EC 12:23
DX: R10.31 Right lower quadrant pain (principal); D72.829 Elevated white blood cell count, unspecified; R39.198 Other difficulties with micturition; R11.0 Nausea; M54.9 Dorsalgia, unspecified; E11.9 Type 2 diabetes mellitus without complications; E78.5 Hyperlipidemia, unspecified; I11.0 Hypertensive heart disease with heart failure; I48.91 Unspecified atrial fibrillation; I50.9 Heart failure, unspecified; Z79.01 Long term (current) use of anticoagulants; Z79.84 Long term (current) use of oral hypoglycemic drugs; Z79.899 Other long term (current) drug therapy; Z86.73 Personal history of transient ischemic attack (TIA), and cerebral infarction without residual deficits; Z87.440 Personal history of urinary (tract) infections; Z98.890 Other specified postprocedural states
CPT/HCPCS: 36415; 80053; 83690; 85025; 81003; 87086; 93975; 76870; 74177; 99284; Q9967; 87077; 87186

== ENCOUNTER → 2018-10-08 | Outpatient (CLI) | payer MEDICARE ==
[2018-10-08 18:15] LABS: Prothrombin Time 46.1 sec (9.0-12.0)
[2018-10-08 18:52] LABS: INR 5.1 (<1.2)
== END | disposition home or self-care (01) ==
LOC: LABWHC1 17:29
PROVIDERS: ATTEND Nurse Practitioner Adult Health
DX: I48.0 Paroxysmal atrial fibrillation (principal)
CPT/HCPCS: 36415; 85610

== ENCOUNTER 2019-02-28 10:12 | Inpatient (IN) | payer MEDICARE ==
--- NOTE | 2019-02-28 10:23 | ED ---
General Adult HPI - General Stated complaint: Chest pain Time Seen by Provider: 02/28/19 10:13 Source: patient, EMS, RN notes reviewed, old records reviewed - History of Present Illness Initial comments: 89 -year-old male presenting for evaluation of central chest pain. Pain began approximately 3 hours prior to arrival. Patient initially thought this may be related to indigestion, related to call EMS. Pain did not subside and became more severe, central chest pressure and pain radiating to the left arm. He did call EMS, was given aspirin and 2 sublingual nitroglycerin by EMS prior to arrival. At the time of arrival patient has minimal chest discomfort in the center of his chest, describes this as a pressure sensation. Denies dyspnea, denies nausea vomiting, denies diaphoresis. He has known history of CAD with st enting many years ago. He has history of CVA. He is currently on Coumadin with history of DVT. - Related Data Home Medications Medication Instructions Recorded Confirmed Digoxin [Digitek] 125 mcg PO DAILY@0600 07/10/15 02/28/19 Enalapril Maleate [Vasotec] 20 mg PO BID@0800,1700 07/10/15 02/28/19 Metoprolol Succinate (ER) [Toprol 25 mg PO BID@0800,2100 07/10/15 02/28/19 XL] Simvastatin [Zocor] 20 mg PO HS@209907/10/15 02/28/19 metFORMIN HCL [Glucophage] 1,000 mg PO BID 07/10/15 02/28/19 hydrALAZINE HCL [Apresoline] 25 mg PO BID@0800,1700 07/16/18 02/28/19 Trospium Chloride [Sanctura] 60 mg PO DAILY@0600 07/27/18 02/28/19 glipiZIDE XL [Glucotrol Xl] 2.5 mg PO DAILY@0700 07/27/18 02/28/19 Nitroglycerin Sl Tabs [Nitrostat] 0.4 mg SUBLINGUAL Q5M PRN 09/10/18 02/28/19 Potassium Chloride ER [K-Dur 20] 20 meq PO DAILY 09/10/18 02/28/19 Warfarin Sodium 6 mg PO HS 09/10/18 02/28/19 HYDROcodone/APAP 10-325MG [[place] 1 tab PO Q6HR PRN 02/28/19 02/28/19 10-325] Allergies Allergy/AdvReac Type Severity Reaction Status Date / Time No Known Allergies Allergy Verified 02/28/19 10:37 Review of Systems ROS Statement: Those systems with pertinent positive or pertinent negative responses have been documented in the HPI. ROS Other: All systems not noted in ROS Statement are negative. 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 Absent: tenderness Respiratory exam: Present: rales. Absent: respiratory distress, wheezes, rhonchi Cardiovascular Exam: Present: regular rate, normal rhythm GI/Abdominal exam: Present: soft. Absent: distended, tenderness, guarding Extremities exam: Present: normal capillary refill, pedal edema. Absent: calf tenderness Neurological exam: Present: alert, oriented X3, CN II-XII intact. Absent: motor sensory deficit Psychiatric exam: Present: normal affect, normal mood Skin exam: Present: warm, dry, intact. Absent: cyanosis, diaphoretic Course Vital Signs 02/28/19 02/28/19 02/28/19 10:19 11:00 11:51 Temperature 98.1 F Pulse Rate 74 61 54 L Respiratory 16 19 18 Rate Blood Pressure 133/82 127/68 120/64 O2 Sat by Pulse 96 97 100 Oximetry EKG Findings - EKG Comments: EKG Findings:: EKG: Obtained at 1022, interpreted as atrial fibrillation with PVC, this appears to be sinus bradycardia with PVC left axis deviation, right bundle branch block, rate of 78 QRS duration 148, QTC 447 MN interval approximately 150. No ST segment elevation. EKG obtained at 1203, sinus bradycardia left extremity deviation, right bundle branch block, rate of 56, MN interval 156, QRS duration 146, QTC 418, no ST segment elevation. Medical Decision Making - Medical Decision Making 89-year-old male presenting with left-sided chest pain. Workup in the emergency department reveals mild exudative 7.2, stable hemoglobin, INR is supratherapeutic at 3.4. Troponin negative, BNP negative, white lites within normal limits per chest x-ray does show some left-sided atelectasis, concern for developing pneumonia. I doubt that this is related to patient's symptoms as he has no cough or fever but will treat with initial dose antibiotics awaiting reevaluation. Patient will be admitted for serial cardiac enzymes, telemetry, and cardiology consultation. Case discussed with admitting physician. - Lab Data Result diagrams: 02/28/19 10:32 02/28/19 10:32 Lab Results 02/28/19 02/28/19 02/28/19 Range/Units 10:32 10:32 10:32 WBC 11.2 H (3.8-10.6) k/uL RBC 5.11 (4.30-5.90) m/uL Hgb 15.6 (13.0-17.5) gm/dL Hct 45.0 (39.0-53.0) % MCV 88.0 (80.0-100.0) fL MCH 30.5 (25.0-35.0) pg MCHC 34.7 (31.0-37.0) g/dL RDW 15.0 (11.5-15.5) % Plt Count 155 (150-450) k/uL Neutrophils % 44 % Lymphocytes % 48 % Monocytes % 5 % Eosinophils % 2 % Basophils % 0 % Neutrophils # 4.9 (1.3-7.7) k/uL Lymphocytes # 5.4 H (1.0-4.8) k/uL Monocytes # 0.6 (0-1.0) k/uL Eosinophils # 0.2 (0-0.7) k/uL Basophils # 0.0 (0-0.2) k/uL Manual Slide Review Performed PT (9.0-12.0) sec INR (<1.2) APTT (22.0-30.0) sec Sodium 140 (137-145) mmol/L Potassium 4.8 (3.5-5.1) mmol/L Chloride 105 (98-107) mmol/L Carbon Dioxide 25 (22-30) mmol/L Anion Gap 10 mmol/L BUN 20 (9-20) mg/dL Creatinine 0.67 (0.66-1.25) mg/dL Est GFR (CKD-EPI)AfAm >90 (>60 ml/min/1.73 sqM) Est GFR (CKD-EPI)NonAf 87 (>60 ml/min/1.73 sqM) Glucose 109 H (74-99) mg/dL Calcium 8.9 (8.4-10.2) mg/dL Magnesium 1.8 (1.6-2.3) mg/dL Total Bilirubin 0.9 (0.2-1.3) mg/dL AST 32 (17-59) U/L ALT 36 (21-72) U/L Alkaline Phosphatase 48 (38-126) U/L Troponin I (0.000-0.034) ng/mL NT-Pro-B Natriuret Pep 338 pg/mL Total Protein 6.5 (6.3-8.2) g/dL Albumin 4.0 (3.5-5.0) g/dL Lipase 98 (23-300) U/L 02/28/19 02/28/19 Range/Units 10:32 10:32 WBC (3.8-10.6) k/uL RBC (4.30-5.90) m/uL Hgb (13.0-17.5) gm/dL Hct (39.0-53.0) % MCV (80.0-100.0) fL MCH (25.0-35.0) pg MCHC (31.0-37.0) g/dL RDW (11.5-15.5) % Plt Count (150-450) k/uL Neutrophils % % Lymphocytes % % Monocytes % % Eosinophils % % Basophils % % Neutrophils # (1.3-7.7) k/uL Lymphocytes # (1.0-4.8) k/uL Monocytes # (0-1.0) k/uL Eosinophils # (0-0.7) k/uL Basophils # (0-0.2) k/uL Manual Slide Review PT 32.6 H (9.0-12.0) sec INR 3.4 H (<1.2) APTT 35.1 H (22.0-30.0) sec Sodium (137-145) mmol/L Potassium (3.5-5.1) mmol/L Chloride (98-107) mmol/L Carbon Dioxide (22-30) mmol/L Anion Gap mmol/L BUN (9-20) mg/dL Creatinine (0.66-1.25) mg/dL Est GFR (CKD-EPI)AfAm (>60 ml/min/1.73 sqM) Est GFR (CKD-EPI)NonAf (>60 ml/min/1.73 sqM) Glucose (74-99) mg/dL Calcium (8.4-10.2) mg/dL Magnesium (1.6-2.3) mg/dL Total Bilirubin (0.2-1.3) mg/dL AST (17-59) U/L ALT (21-72) U/L Alkaline Phosphatase (38-126) U/L Troponin I <0.012 (0.000-0.034) ng/mL NT-Pro-B Natriuret Pep pg/mL Total Protein (6.3-8.2) g/dL Albumin (3.5-5.0) g/dL Lipase (23-300) U/L Disposition Clinical Impression: Chest pain, Pneumonia Disposition: ADMITTED IP TO THIS [facility] Condition: Stable Is patient prescribed a controlled substance at d/c from ED?: No Referrals: Mariola Butler MD [Primary Care Provider] - 1-2 days Time of Disposition: 12:11 Decision to Admit Reason: Admit from EC Decision Date: 02/28/19 Decision Time: 12:11
[2019-02-28 10:40] LABS: Basophils % (A) 0 %; Eosinophils # (A) 0.2 k/uL (0-0.7); Eosinophils % (A) 2 %; HGB 15.6 gm/dL (13.0-17.5); Lymphocytes # (A) 5.4 k/uL (1.0-4.8); Lymphocytes % (A) 48 %; MCH 30.5 pg (25.0-35.0); MCHC 34.7 g/dL (31.0-37.0); Mean Platelet Volume 10.6; Monocytes # (A) 0.6 k/uL (0-1.0); Monocytes % (A) 5 %; Neutrophils # (A) 4.9 k/uL (1.3-7.7); Neutrophils % (A) 44 %; Platelet Count 155 k/uL (150-450); RBC 5.11 m/uL (4.30-5.90); WBC 11.2 k/uL (3.8-10.6)
[2019-02-28 10:50] LABS: INR 3.4 (<1.2); Partial Thromboplastin Time 35.1 sec (22.0-30.0); Prothrombin Time 32.6 sec (9.0-12.0)
[2019-02-28 11:03] LABS: ALT 36 U/L (21-72); AST 32 U/L (17-59); Alkaline Phosphatase 48 U/L (38-126); Anion Gap 10 mmol/L; Blood Urea Nitrogen 20 mg/dL (9-20); Calcium 8.9 mg/dL (8.4-10.2); Carbon Dioxide 25 mmol/L (22-30); Chloride 105 mmol/L (98-107); Glucose 109 mg/dL (74-99); Lipase 98 U/L (23-300); Sodium 140 mmol/L (137-145); Total Bilirubin 0.9 mg/dL (0.2-1.3); Total Protein 6.5 g/dL (6.3-8.2)
--- NOTE | 2019-02-28 11:10 | XR ---
EXAMINATION TYPE: XR chest 2V DATE OF EXAM: 02/28/2019 COMPARISON: 07/16/2018 INDICATION: Pain TECHNIQUE: Frontal and lateral views of the chest are obtained. FINDINGS: The heart size is mildly prominent. The pulmonary vasculature is normal. There is an infiltrate above the left diaphragm. Diaphragm is elevated. Correlate for atelectasis. IMPRESSION: 1. Left basilar atelectasis, pneumonia could be considered. Follow-up is recommended.
[2019-02-28 11:13] LABS: Potassium 4.8 mmol/L (3.5-5.1)
[2019-02-28] MEDS ORDERED: METOPROLOL TARTRATE 25 MG TAB PO STA (11:17)
[2019-02-28 11:31] LABS: Magnesium 1.8 mg/dL (1.6-2.3)
[2019-02-28] MEDS ORDERED: MORPHINE SULFATE 4 MG/ML SYRINGE IM STA (11:52)
[2019-02-28] MEDS ORDERED: MORPHINE SULFATE 4 MG/ML SYRINGE IV PRN (12:01)
[2019-02-28] MEDS ORDERED: AZITHROMYCIN 500 MG in SODIUM CHLORIDE 0.9% 250 ML IVPB STA (12:01)
[2019-02-28] MEDS ORDERED: ACETAMINOPHEN TAB 325 MG TAB PO PRN (12:01)
[2019-02-28] MEDS ORDERED: NALOXONE 0.4 MG/ML 1 ML VIAL IV PRN (12:01)
[2019-02-28] MEDS ORDERED: cefTRIAXone IN SWFI 1,000 MG/10 ML SYRINGE IVP STA (12:01)
[2019-02-28] MEDS ORDERED: SODIUM CHLORIDE 0.9% 500 ML 500 ML IV ONE (12:01)
[2019-02-28 16:14] LABS: Glucose,Whole Blood 95 mg/dL (75-99)
[2019-02-28] MEDS: LISINOPRIL 20 MG TAB PO SCH (17:17)
[2019-02-28] MEDS: hydrALAZINE HCL 25 MG TAB PO SCH (17:17)
[2019-02-28] MEDS: metFORMIN 500 MG TAB PO SCH (17:17)
[2019-02-28 21:09] LABS: Glucose,Whole Blood 125 mg/dL (75-99)
[2019-02-28] MEDS: METOPROLOL SUCCINATE (ER) 25 MG TAB.ER.24H PO SCH (21:34)
[2019-02-28] MEDS: ATORVASTATIN 10 MG TAB PO SCH (21:34)
[2019-03-01 06:07] LABS: Glucose,Whole Blood 103 mg/dL (75-99)
[2019-03-01] MEDS: metFORMIN 500 MG TAB PO SCH ×2 (06:58→17:57)
[2019-03-01] MEDS: DIGOXIN 125 MCG TAB PO SCH (06:58)
[2019-03-01 08:05] LABS: INR 3.2 (<1.2); Prothrombin Time 30.4 sec (9.0-12.0)
--- NOTE | 2019-03-01 09:21 | P.CRDCN ---
History of Present Illness Consult date: 03/01/19 Consult reason: chest pain History of present illness: IMPRESSION / ASSESSMENT: Chest pain Paroxysmal atrial fibrillation, RVR History of coronary artery disease status post stenting History of stroke Diabetes mellitus type 2 Coagulopathy PLAN: Repeat troponin Echocardiogram Continue Coumadin decreased to 5 mg daily Continue digoxin 125 g daily, Toprol-XL 25 mg twice daily Continue Vasotec 20 mg twice daily, hydralazine 25 mg twice daily, simvastatin 20 mg at bedtime HPI This is an 89-year-old male patient of Dr. Felder with history of coronary artery disease with stenting done around 10 years ago, paroxysmal atrial fibrillation, history of CVA in 2015, DVT, diabetes mellitus type 2. Patient states that he developed chest pain yesterday 30 in the morning awoke him from sleep. It was in the midsternal and over to the left side slightly. He thought it was indigestion problems with his bowels and he needed to have a bowel movement and force this to happen but the pain then increased. He had checked his blood pressure was higher than normal but he does not recall the number and his heart rate was 115. Significant that he checked his heart rate and was up to 150 and EMS was called and he was told his heart rate was up to 224. He was feeling lightheaded and had sweats. He states the pain in his chest was very similar to what he had 10 years ago when he had stents placed. He describes it as a baseball that with pressure to the midsternal. He has chronic left arm pain since his stroke but denies any radiation of pain to the arm. Patient is currently pain-free. Patient also relates that he has not t aken his beta dwight for the past 3 days as he ran out of medication. ROS: No fever chills or rigors, no cough, phlegm or expectoration, no nausea, vomiting or diarrhea, no hematuria, dysuria, no musculoskeletal complaints, no strokes or seizures, no skin lesions. EXAMINATION: Gen: This is an 89-year-old male. He is resting in bed and appears to be comfortable and in no acute distress. Patient is an afebrile, heart rate in the 50s and 60s, blood pressure 146/66, pulse ox 94% on room air HEENT: Head is atraumatic, normocephalic. Pupils equal, round. Sclerae is anicteric. NECK: Supple. No JVD. No lymphadenopathy. No thyromegaly. LUNGS: Clear to auscultation. No wheezes or rhonchi. No intercostal retractions. HEART: Regular rate and rhythm. No murmur. ABDOMEN: Soft. Bowel sounds are present. No masses. No tenderness. EXTREMITIES: No pedal edema. No calf tenderness. NEUROLOGICAL: Patient is awake, alert and oriented x3. Cranial nerves 2 through 12 are grossly intact. REVIEW OF LABS, ECG & MEDICAL DATA EKG sinus rhythm with normal SC, right bundle branch block, nonsustained short burst of atrial tachycardia WBC 11.2, INR 3.4, creatinine 0.67, troponin 0.012 Nurse practitioner note has been reviewed, I agree with documented findings and plan of care. Patient was seen and examined. 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 History of Any Multi-Drug Resistant Organisms: None Reported Past Surgical History: Back Surgery, Hernia Repair Past Anesthesia/Blood Transfusion Reactions: No Reported Reaction Past Psychological History: No Psychological Hx Reported Smoking Status: Never smoker Past Alcohol Use History: Rare Past Drug Use History: None Reported Medications and Allergies Home Medications Medication Instructions Recorded Confirmed Type Digoxin [Digitek] 125 mcg PO DAILY@0600 07/10/15 02/28/19 History Enalapril Maleate [Vasotec] 20 mg PO BID@0800,1700 07/10/15 02/28/19 History Metoprolol Succinate (ER) [Toprol 25 mg PO BID@0800,2100 07/10/15 02/28/19 History XL] Simvastatin [Zocor] 20 mg PO HS@209907/10/15 02/28/19 History metFORMIN HCL [Glucophage] 1,000 mg PO BID 07/10/15 02/28/19 History hydrALAZINE HCL [Apresoline] 25 mg PO BID@0800,1700 07/16/18 02/28/19 History Trospium Chloride [Sanctura] 60 mg PO DAILY@0600 07/27/18 02/28/19 History glipiZIDE XL [Glucotrol Xl] 2.5 mg PO DAILY@0700 07/27/18 02/28/19 History Nitroglycerin Sl Tabs [Nitrostat] 0.4 mg SUBLINGUAL Q5M PRN 09/10/18 02/28/19 History Potassium Chloride ER [K-Dur 20] 20 meq PO DAILY 09/10/18 02/28/19 History Warfarin Sodium 6 mg PO HS 09/10/18 02/28/19 History HYDROcodone/APAP 10-325MG [[place] 1 tab PO Q6HR PRN 02/28/19 02/28/19 History 10-325] Allergies Allergy/AdvReac Type Severity Reaction Status Date / Time Milk Containing Products AdvReac Mild Diarrhea Verified 03/01/19 10:03 Physical Exam Vitals: Vital Signs Temp Pulse Pulse Resp BP BP Pulse Ox 03/01/19 04:00 97.7 F 54 L 18 146/66 94 L 03/01/19 00:00 97.8 F 56 L 18 133/72 93 L 02/28/19 20:00 97.9 F 68 18 150/73 93 L 02/28/19 15:01 97.4 F L 67 20 154/74 94 L 02/28/19 14:00 57 L 18 115/64 96 02/28/19 13:00 57 L 8 L 129/74 99 02/28/19 12:00 57 L 13 120/64 98 02/28/19 11:51 54 L 18 120/64 100 02/28/19 11:00 61 19 127/68 97 02/28/19 10:19 98.1 F 74 16 133/82 96 Intake and Output 02/28/19 03/01/19 03/01/19 22:59 06:59 14:59 Intake Total 240 240 Output Total 500 400 Balance -260 -400 240 Intake: Oral 240 240 Output: Urine 500 400 Other: Voiding Method Urinal Urinal Weight 86.3 kg Results 02/28/19 10:32 02/28/19 10:32 Cardiac Enzymes 02/28/19 02/28/19 Range/Units 10:32 10:32 AST 32 (17-59) U/L Troponin I <0.012 (0.000-0.034) ng/mL Coagulation 02/28/19 03/01/19 Range/Units 10:32 06:37 PT 32.6 H 30.4 H (9.0-12.0) sec APTT 35.1 H (22.0-30.0) sec CBC 02/28/19 Range/Units 10:32 WBC 11.2 H (3.8-10.6) k/uL RBC 5.11 (4.30-5.90) m/uL Hgb 15.6 (13.0-17.5) gm/dL Hct 45.0 (39.0-53.0) % Plt Count 155 (150-450) k/uL Comprehensive Metabolic Panel 02/28/19 Range/Units 10:32 Sodium 140 (137-145) mmol/L Potassium 4.8 (3.5-5.1) mmol/L Chloride 105 (98-107) mmol/L Carbon Dioxide 25 (22-30) mmol/L BUN 20 (9-20) mg/dL Creatinine 0.67 (0.66-1.25) mg/dL Glucose 109 H (74-99) mg/dL Calcium 8.9 (8.4-10.2) mg/dL AST 32 (17-59) U/L ALT 36 (21-72) U/L Alkaline Phosphatase 48 (38-126) U/L Total Protein 6.5 (6.3-8.2) g/dL Albumin 4.0 (3.5-5.0) g/dL Current Medications Generic Name Dose Route Start Last Admin Trade Name Freq PRN Reason Stop Dose Admin Acetaminophen 650 mg 02/28/19 12:01 Tylenol Tab PO Q6HR PRN Mild Pain or Fever > 100.5 Hydrocodone Bitart/Acetaminophen 1 each 02/28/19 12:03 [place] 10 PO Q6HR PRN MODERATE Pain Atorvastatin Calcium 10 mg 02/28/19 21:00 02/28/19 21:34 Lipitor PO 10 mg HS@2100 GREGORY Administration Digoxin 125 mcg 03/01/19 06:00 03/01/19 06:58 Lanoxin PO 125 mcg DAILY@0600 GREGORY Administration Glipizide 2.5 mg 03/01/19 07:00 03/01/19 06:58 Glucotrol PO 2.5 mg DAILY@0700 GREGORY Administration Hydralazine HCl 25 mg 02/28/19 17:00 02/28/19 17:17 Apresoline PO 25 mg BID@0800,1700 GREGORY Administration Lisinopril 40 mg 02/28/19 17:00 02/28/19 17:17 Zestril PO 40 mg BID@0800,1700 GREGORY Administration Metformin HCl 1,000 mg 02/28/19 17:30 03/01/19 06:58 Glucophage PO 1,000 mg BID-W/MEALS GREGORY Administration Metoprolol Succinate 25 mg 02/28/19 21:00 02/28/19 21:34 Toprol Xl PO 25 mg BID@0800,2100 GREGORY Administration Morphine Sulfate 4 mg 02/28/19 12:01 Morphine Sulfate (Inj) IV Q4HR PRN Severe Pain Naloxone HCl 0.2 mg 02/28/19 12:01 Narcan IV Q2M PRN Opioid Reversal Nitroglycerin 0.4 mg 02/28/19 11:52 Nitrostat SUBLINGUAL Q5M PRN Chest Pain Intake and Output 02/28/19 03/01/19 03/01/19 22:59 06:59 14:59 Intake Total 240 240 Output Total 500 400 Balance -260 -400 240 Intake: Oral 240 240 Output: Urine 500 400 Other: Voiding Method Urinal Urinal Weight 86.3 kg 02/28/19 10:32 02/28/19 10:32
--- NOTE | 2019-03-01 09:39 | P.CRDCN ---
History of Present Illness History of present illness: Patient interviewed and examined Presenting with chest discomfort associated with elevated blood pressure and elevated heart rates. He was dizzy and sweaty and tachycardic. He felt the palpitations and he took his blood pressure and heart rate in the heart rate was elevated up to 130s to 140 beats a minute 12-lead ECG shows sinus rhythm normal [place] right bundle-branch block and short bur sts of nonsustained atrial tachycardia on ECG but I do not have them showing any sustained arrhythmias He has hypertension diabetes he takes Coumadin and is on is elevated and reducing the dose of Coumadin to 5 mg by mouth daily The dose of metoprolol is being increased to 50 g twice daily. 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 History of Any Multi-Drug Resistant Organisms: None Reported Past Surgical History: Back Surgery, Hernia Repair Past Anesthesia/Blood Transfusion Reactions: No Reported Reaction Past Psychological History: No Psychological Hx Reported Smoking Status: Never smoker Past Alcohol Use History: Rare Past Drug Use History: None Reported Medications and Allergies Home Medications Medication Instructions Recorded Confirmed Type Digoxin [Digitek] 125 mcg PO DAILY@0600 07/10/15 02/28/19 History Enalapril Maleate [Vasotec] 20 mg PO BID@0800,1700 07/10/15 02/28/19 History Metoprolol Succinate (ER) [Toprol 25 mg PO BID@0800,2100 07/10/15 02/28/19 History XL] Simvastatin [Zocor] 20 mg PO HS@209907/10/15 02/28/19 History metFORMIN HCL [Glucophage] 1,000 mg PO BID 07/10/15 02/28/19 History hydrALAZINE HCL [Apresoline] 25 mg PO BID@0800,1700 07/16/18 02/28/19 History Trospium Chloride [Sanctura] 60 mg PO DAILY@0600 07/27/18 02/28/19 History glipiZIDE XL [Glucotrol Xl] 2.5 mg PO DAILY@0700 07/27/18 02/28/19 History Nitroglycerin Sl Tabs [Nitrostat] 0.4 mg SUBLINGUAL Q5M PRN 09/10/18 02/28/19 History Potassium Chloride ER [K-Dur 20] 20 meq PO DAILY 09/10/18 02/28/19 History Warfarin Sodium 6 mg PO HS 09/10/18 02/28/19 History HYDROcodone/APAP 10-325MG [[place] 1 tab PO Q6HR PRN 02/28/19 02/28/19 History 10-325] Allergies Allergy/AdvReac Type Severity Reaction Status Date / Time No Known Allergies Allergy Verified 02/28/19 10:37 Physical Exam Vitals: Vital Signs Temp Pulse Pulse Resp BP BP Pulse Ox 03/01/19 08:00 97.8 F 57 L 18 147/68 97 03/01/19 04:00 97.7 F 54 L 18 146/66 94 L 03/01/19 00:00 97.8 F 56 L 18 133/72 93 L 02/28/19 20:00 97.9 F 68 18 150/73 93 L 02/28/19 15:01 97.4 F L 67 20 154/74 94 L 02/28/19 14:00 57 L 18 115/64 96 02/28/19 13:00 57 L 8 L 129/74 99 02/28/19 12:00 57 L 13 120/64 98 02/28/19 11:51 54 L 18 120/64 100 02/28/19 11:00 61 19 127/68 97 02/28/19 10:19 98.1 F 74 16 133/82 96 Intake and Output 02/28/19 03/01/19 03/01/19 22:59 06:59 14:59 Intake Total 240 240 Output Total 500 400 300 Balance -260 -400 -60 Intake: Oral 240 240 Output: Urine 500 400 300 Other: Voiding Method Urinal Urinal Urinal Weight 86.3 kg Results 02/28/19 10:32 02/28/19 10:32 Cardiac Enzymes 02/28/19 02/28/19 Range/Units 10:32 10:32 AST 32 (17-59) U/L Troponin I <0.012 (0.000-0.034) ng/mL Coagulation 02/28/19 03/01/19 Range/Units 10:32 06:37 PT 32.6 H 30.4 H (9.0-12.0) sec APTT 35.1 H (22.0-30.0) sec CBC 02/28/19 Range/Units 10:32 WBC 11.2 H (3.8-10.6) k/uL RBC 5.11 (4.30-5.90) m/uL Hgb 15.6 (13.0-17.5) gm/dL Hct 45.0 (39.0-53.0) % Plt Count 155 (150-450) k/uL Comprehensive Metabolic Panel 02/28/19 Range/Units 10:32 Sodium 140 (137-145) mmol/L Potassium 4.8 (3.5-5.1) mmol/L Chloride 105 (98-107) mmol/L Carbon Dioxide 25 (22-30) mmol/L BUN 20 (9-20) mg/dL Creatinine 0.67 (0.66-1.25) mg/dL Glucose 109 H (74-99) mg/dL Calcium 8.9 (8.4-10.2) mg/dL AST 32 (17-59) U/L ALT 36 (21-72) U/L Alkaline Phosphatase 48 (38-126) U/L Total Protein 6.5 (6.3-8.2) g/dL Albumin 4.0 (3.5-5.0) g/dL Current Medications Generic Name Dose Route Start Last Admin Trade Name Freq PRN Reason Stop Dose Admin Acetaminophen 650 mg 02/28/19 12:01 Tylenol Tab PO Q6HR PRN Mild Pain or Fever > 100.5 Hydrocodone Bitart/Acetaminophen 1 each 02/28/19 12:03 [place] 10 PO Q6HR PRN MODERATE Pain Atorvastatin Calcium 10 mg 02/28/19 21:00 02/28/19 21:34 Lipitor PO 10 mg HS@2100 GREGORY Administration Digoxin 125 mcg 03/01/19 06:00 03/01/19 06:58 Lanoxin PO 125 mcg DAILY@0600 GREGORY Administration Glipizide 2.5 mg 03/01/19 07:00 03/01/19 06:58 Glucotrol PO 2.5 mg DAILY@0700 GREGORY Administration Hydralazine HCl 25 mg 02/28/19 17:00 02/28/19 17:17 Apresoline PO 25 mg BID@0800,1700 GREGORY Administration Lisinopril 40 mg 02/28/19 17:00 02/28/19 17:17 Zestril PO 40 mg BID@0800,1700 GREGROY Administration Metformin HCl 1,000 mg 02/28/19 17:30 03/01/19 06:58 Glucophage PO 1,000 mg BID-W/MEALS GREGORY Administration Metoprolol Succinate 25 mg 02/28/19 21:00 02/28/19 21:34 Toprol Xl PO 25 mg BID@0800,2100 GREGORY Administration Morphine Sulfate 4 mg 02/28/19 12:01 Morphine Sulfate (Inj) IV Q4HR PRN Severe Pain Naloxone HCl 0.2 mg 02/28/19 12:01 Narcan IV Q2M PRN Opioid Reversal Nitroglycerin 0.4 mg 02/28/19 11:52 Nitrostat SUBLINGUAL Q5M PRN Chest Pain Intake and Output 02/28/19 03/01/19 03/01/19 22:59 06:59 14:59 Intake Total 240 240 Output Total 500 400 300 Balance -260 -400 -60 Intake: Oral 240 240 Output: Urine 500 400 300 Other: Voiding Method Urinal Urinal Urinal Weight 86.3 kg 02/28/19 10:32 02/28/19 10:32
[2019-03-01] MEDS: hydrALAZINE HCL 25 MG TAB PO SCH ×2 (09:41→17:06)
[2019-03-01] MEDS ORDERED: METOPROLOL SUCCINATE (ER) 50 MG TAB.ER.24H PO SCH (09:45)
[2019-03-01] MEDS: LISINOPRIL 20 MG TAB PO SCH ×2 (09:47→17:06)
[2019-03-01] MEDS: METOPROLOL SUCCINATE (ER) 25 MG TAB.ER.24H PO SCH ×3 (10:06→21:28)
[2019-03-01 11:36] LABS: Glucose,Whole Blood 87 mg/dL (75-99)
[2019-03-01] MEDS ORDERED: AZITHROMYCIN 500 MG TAB PO SCH (14:30)
--- NOTE | 2019-03-01 14:33 | ECHOF ---
Referral Reason:LVF MEASUREMENTS -------- HEIGHT: 172.7 cm WEIGHT: 86.2 kg BP: 146/68 RVIDd: 3.3 cm (< 3.3) IVSd: 1.5 cm (0.6 - 1.1) LVIDd: 4.9 cm (3.9 - 5.3) LVPWd: 1.6 cm (0.6 - 1.1) IVSs: 2.2 cm LVIDs: 3.3 cm LVPWs: 2.1 cm LA Diam: 4.7 cm (2.7 - 3.8) LAESV Index (A-L): 30.04 ml/m Ao Diam: 3.9 cm (2.0 - 3.7) AV Cusp: 1.7 cm (1.5 - 2.6) MV EXCURSION: 12.907 mm (> 18.000) MV EF SLOPE: 26 mm/s (70 - 150) EPSS: 1.0 cm MV E Darian: 0.70 m/s MV DecT: 414 ms MV A Darian: 0.94 m/s MV E/A Ratio: 0.74 AV maxP.94 mmHg AV meanP.53 mmHg RAP: 5.00 mmHg RVSP: 40.14 mmHg FINDINGS -------- Sinus rhythm. This was a technically good study. The left ventricular size is normal. There is moderate concentric left ventricular hypertrophy. O verall left ventricular systolic function is normal with, an EF between 55 - 60 %. The right ventricle is mildly enlarged. LA is midly dilated 29-33ml/m2. The right atrium is normal in size. There is moderate aortic valve sclerosis. There is moderate aortic stenosis present. Peak/mean gr adient across the Aortic Valve is 40.94mmHg / 21.53mmHg. Mild mitral annular calcification present. Mild tricuspid regurgitation present. There is mild pulmonary hypertension. The right ventricular systolic pressure, as measured by Doppler, is 40.14mmHg. The pulmonic valve was not well visualized. The aortic root is dilated measuring 3.9cm. Normal inferior vena cava with normal inspiratory collapse consistent with estimated right atrial pre ssure of 5 mmHg. There is no pericardial effusion. CONCLUSIONS -------- 1. Sinus rhythm. 2. This was a technically good study. 3. The left ventricular size is normal. 4. There is moderate concentric left ventricular hypertrophy. 5. Overall left ventricular systolic function is normal with, an EF between 55 - 60 %. 6. The right ventricle is mildly enlarged. 7. LA is midly dilated 29-33ml/m2. 8. The right atrium is normal in size. 9. There is moderate aortic valve sclerosis. 10. There is moderate aortic stenosis present. 11. Peak/mean gradient across the Aortic Valve is 40.94mmHg / 21.53mmHg. 12. Mild mitral annular calcification present. 13. Mild tricuspid regurgitation present. 14. There is mild pulmonary hypertension. 15. The right ventricular systolic pressure, as measured by Doppler, is 40.14mmHg. 16. The pulmonic valve was not well visualized. 17. The aortic root is dilated measuring 3.9cm. 18. Normal inferior vena cava with normal inspiratory collapse consistent with estimated right atrial pressure of 5 mmHg. 19. There is no pericardial effusion. SURGICAL INSTRUMENT MAKER: Abbi Trejo RDCS
--- NOTE | 2019-03-01 16:17 | P.HPIM ---
History of Present Illness H&P Date: 03/01/19 Chief Complaint: Chest pain Patient is a 89-year-old male with a known history of approximately fibrillation on anticoagulation with Coumadin, history of CVA/TIA with memory impairment, hypertension, hyperlipidemia and history of coronary artery disease with stent placement about 10 years ago came to ER with the complaints of chest pain yesterday morning and woke up from sleep. Patient did have mid retrosternal stabbing chest pain with associated shortness of breath. Denied radiation. Patient felt nauseous. No vomiting. No headache or dizziness or lightheadedness. Patient felt sweaty. Patient says that his blood pressure was high at the time and is also elevated heart rate. EMS was called and was told that his heart rate went up to 224. Patient was brought to the hospital by EMS. Patient denied any fever or chills. No recent upper respiratory infection. No sick contacts at home. Patient says that his chest pain is similar to the pain when he had heart attack 10 years ago. Patient has not been taking his metoprolol dose for the past 3 days due to delay in prescription service. EKG showed normal sinus rhythm with right bundle-branch block and bursts of nonsustained atrial tachycardia. Chest x-ray showed left basilar atelectasis, pneumonia could be considered. Follow-up is recommended. INR 3.4, lactic acid 3.2 Review of Systems Constitutional: Patient denies any fever or chills . No generalized weakness or weight loss. Abdomen: Patient denied nausea vomiting and diarrhea and abdominal pain. Cardiovascular: Chest pain and shortness of breath. No leg swelling. Patient did have fast heart rate. Respiratory: patient denied any cough is from production. No shortness of breath Neurologic: Patient denied any numbness or tingling headache. Musculoskeletal: Patient denies any complaints of joint swelling or deformity. Skin: Negative Psychiatric: Negative Endocrine: No heat or cold intolerance. No recent weight gain. Genitourinary: No dysuria or hematuria. 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 History of Any Multi-Drug Resistant Organisms: None Reported Past Surgical History: Back Surgery, Hernia Repair Past Anesthesia/Blood Transfusion Reactions: No Reported Reaction Past Psychological History: No Psychological Hx Reported Smoking Status: Never smoker Past Alcohol Use History: Rare Past Drug Use History: None Reported Medications and Allergies Home Medications Medication Instructions Recorded Confirmed Type Digoxin [Digitek] 125 mcg PO DAILY@0600 07/10/15 02/28/19 History Enalapril Maleate [Vasotec] 20 mg PO BID@0800,1700 07/10/15 02/28/19 History Metoprolol Succinate (ER) [Toprol 25 mg PO BID@0800,2100 07/10/15 02/28/19 History XL] Simvastatin [Zocor] 20 mg PO HS@2100 07/10/15 02/28/19 History metFORMIN HCL [Glucophage] 1,000 mg PO BID 07/10/15 02/28/19 History hydrALAZINE HCL [Apresoline] 25 mg PO BID@0800,1700 07/16/18 02/28/19 History Trospium Chloride [Sanctura] 60 mg PO DAILY@0600 07/27/18 02/28/19 History glipiZIDE XL [Glucotrol Xl] 2.5 mg PO DAILY@0700 07/27/18 02/28/19 History Nitroglycerin Sl Tabs [Nitrostat] 0.4 mg SUBLINGUAL Q5M PRN 09/10/18 02/28/19 History Potassium Chloride ER [K-Dur 20] 20 meq PO DAILY 09/10/18 02/28/19 History Warfarin Sodium 6 mg PO HS 09/10/18 02/28/19 History HYDROcodone/APAP 10-325MG [[place] 1 tab PO Q6HR PRN 02/28/19 02/28/19 History 10-325] Allergies Allergy/AdvReac Type Severity Reaction Status Date / Time Milk Containing Products AdvReac Mild Diarrhea Verified 03/01/19 10:03 Physical Exam Vitals: Vital Signs Temp Pulse Resp BP Pulse Ox 03/01/19 12:00 55 L 18 144/73 96 03/01/19 08:00 97.8 F 57 L 18 147/68 97 03/01/19 04:00 97.7 F 54 L 18 146/66 94 L 03/01/19 00:00 97.8 F 56 L 18 133/72 93 L 02/28/19 20:00 97.9 F 68 18 150/73 93 L Intake and Output 03/01/19 03/01/19 03/01/19 06:59 14:59 22:59 Intake Total 720 Output Total 400 300 Balance -400 420 Intake: Oral 720 Output: Urine 400 300 Other: Voiding Method Urinal Urinal Weight 86.3 kg PHYSICAL EXAMINATION: Patient is lying in the bed comfortably, no acute distress, awake alert and oriented.. HEENT: Normocephalic. Neck is supple. Left eye droop. Pupils reactive. Nostrils clear. Oral cavity is moist. Ears reveal no drainage. Neck reveals no JVD, carotid bruits, or thyromegaly. CHEST EXAMINATION: Trachea is central. Symmetrical expansion. Lung orellana clear to auscultation and percussion. CARDIAC: Normal S1, S2 with no gallops. No murmurs ABDOMEN: Soft. Bowel sounds normal. No organomegaly. No abdominal bruits. Extremities: reveal no edema. No clubbing or cyanosis Neurologically awake, alert, oriented x3 with well-coordinated movements. Memory impairment. No focal deficits noted Skin: No rash or skin lesions. Psychiatric: Coperative. Nonsuicidal Musculoskeletal: No joint swelling or deformity. Normal range of motion. Results CBC & Chem 7: 02/28/19 10:32 02/28/19 10:32 Labs: Abnormal Lab Results - Last 24 Hours (Table) 02/28/19 02/28/19 03/01/19 Range/Units 16:43 21:07 06:03 PT (9.0-12.0) sec INR (<1.2) POC Glucose (mg/dL) 125 H 103 H (75-99) mg/dL Plasma Lactic Acid [place] 2.2 H* (0.7-2.0) mmol/L 03/01/19 Range/Units 06:37 PT 30.4 H (9.0-12.0) sec INR 3.2 H (<1.2) POC Glucose (mg/dL) (75-99) mg/dL Plasma Lactic Acid Dayo (0.7-2.0) mmol/L Microbiology - Last 24 Hours (Table) 02/28/19 12:23 Blood Culture - Preliminary Blood No Growth after 24 hours Thrombosis Risk Factor Assmnt - DVT/VTE Prophylaxis DVT/VTE Prophylaxis: Pharmacologic Prophylaxis ordered - Choose All That Apply Any of the Below Risk Factors Present?: Yes Each Factor Represents 1 point: Obesity (BMI >25) Other Risk Factors: Yes Each Risk Factor Represents 3 Points: Age 75 years or older Thrombosis Risk Factor Assessment Total Risk Factor Score: 4 Thrombosis Risk Factor Assessment Level: Moderate Risk Assessment and Plan Assessment: Paroxysmal atrial ablation with RVR Chest pain. Possible angina. Rule out acute coronary syndrome. 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 Unlikely pneumonia. 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 Serial EKG and troponins. Cardiology was consulted. 2-D echo cardiac nose ordered. Currently rate is controlled. We will continue the home medications including Toprol-XL and his oxygen. Patient also on Vasotec, hydralazine and simvastatin. Patient was given a dose of IV antibiotics in the ER. We will continue to monitor for any infection. Further recommendations based on the clinical course. Time with Patient: Greater than 30
[2019-03-01 16:46] LABS: Glucose,Whole Blood 81 mg/dL (75-99)
[2019-03-01] MEDS: WARFARIN 5 MG TAB PO SCH (17:57)
[2019-03-01 21:03] LABS: Glucose,Whole Blood 89 mg/dL (75-99)
[2019-03-01] MEDS: ATORVASTATIN 10 MG TAB PO SCH (21:28)
[2019-03-02] MEDS: NITROGLYCERIN SL TABS 0.4 MG TAB SUBLINGUAL PRN ×2 (06:12→07:08)
[2019-03-02 06:13] LABS: Glucose,Whole Blood 98 mg/dL (75-99)
[2019-03-02] MEDS: DIGOXIN 125 MCG TAB PO SCH (06:19)
[2019-03-02] MEDS: METOPROLOL SUCCINATE (ER) 25 MG TAB.ER.24H PO SCH ×2 (06:22→15:44)
[2019-03-02 07:10] LABS: INR 1.9 (<1.2); Prothrombin Time 18.5 sec (9.0-12.0)
[2019-03-02 07:22] LABS: Anion Gap 10 mmol/L; Blood Urea Nitrogen 16 mg/dL (9-20); Calcium 9.4 mg/dL (8.4-10.2); Carbon Dioxide 24 mmol/L (22-30); Chloride 107 mmol/L (98-107); Glucose 92 mg/dL (74-99); Potassium 4.5 mmol/L (3.5-5.1); Sodium 141 mmol/L (137-145)
[2019-03-02 07:39] LABS: HCT 48.5 % (39.0-53.0); HGB 16.5 gm/dL (13.0-17.5); MCH 30.4 pg (25.0-35.0); MCHC 34.1 g/dL (31.0-37.0); MCV 89.2 fL (80.0-100.0); Mean Platelet Volume 9.3; Platelet Count 188 k/uL (150-450); RBC 5.44 m/uL (4.30-5.90); RDW 14.8 % (11.5-15.5); WBC 12.5 k/uL (3.8-10.6)
--- NOTE | 2019-03-02 07:40 | XR ---
EXAMINATION TYPE: XR chest 1V DATE OF EXAM: 03/02/2019 HISTORY: chest pain. REFERENCE: Previous study dated 02/28/2019. FINDINGS: There is elevation left hemidiaphragm. There is underlying COPD. Left basilar airspace dise ase is largely cleared. There are increased interstitial markings throughout both lungs. The heart is enlarged. IMPRESSION: 1. COPD. 2. CARDIOMEGALY. 3. IT WOULD BE DIFFICULT TO EXCLUDE A MILD DEGREE OF HEART FAILURE.
[2019-03-02] MEDS: metFORMIN 500 MG TAB PO SCH ×2 (09:10→17:24)
[2019-03-02] MEDS: LISINOPRIL 20 MG TAB PO SCH ×2 (09:11→17:12)
[2019-03-02] MEDS: hydrALAZINE HCL 25 MG TAB PO SCH ×2 (09:11→16:23)
--- NOTE | 2019-03-02 10:46 | P.PN ---
Subjective Progress Note Date: 03/02/19 IMPRESSION / ASSESSMENT: Chest pain Paroxysmal atrial fibrillation, RVR History of coronary artery disease status post stenting History of stroke Diabetes mellitus type 2 Coagulopathy Moderate aortic stenosis Bradycardia most likely secondary to obstructive sleep apnea PLAN: Continue Coumadin decreased to 5 mg daily Monitor INR Continue digoxin 125 g daily, Toprol-XL 25 mg twice daily Continue Vasotec 20 mg twice daily, hydralazine 25 mg twice daily, simvastatin 20 mg at bedtime HPI This is an 89-year-old male patient of Dr. Felder with history of coronary artery disease with stenting done around 10 years ago, paroxysmal atrial fibrillation, history of CVA in 2015, DVT, diabetes mellitus type 2. Patient states that he developed chest pain yesterday 30 in the morning awoke him from sleep. It was in the midsternal and over to the left side slightly. He thought it was indigestion problems with his bowels and he needed to have a bowel movement and force this to happen but the pain then increased. He had checked his blood pressure was higher than normal but he does not recall the number and his heart rate was 115. Significant that he checked his heart rate and was up to 150 and EMS was called and he was told his heart rate was up to 224. He was feeling lightheaded and had sweats. He states the pain in his chest was very similar to what he had 10 years ago when he had stents placed. He describes it as a baseball that with pressure to the midsternal. 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 Patient is currently pain-free. Patient also relates that he has not taken his beta dwight for the past 3 days as he ran out of medication. 03/02: The patient developed chest pain to the lower sternal area this morning personally 6 AM while in bed. He also converted to A. fib with RVR at that time as well. Patient was given nitroglycerin and according to nursing did not help very much but patient states about an hour after the nitroglycerin he did have some improvement of the pain. It was at a level #5. Right now it is just a soreness. Patient did have low heart rate sinus rhythm down to 28 during the night. He is currently having A. fib with short burst up to 120. EXAMINATION: Gen: This is an 89-year-old male. He is resting in bed and appears to be comfortable and in no acute distress. Patient is an afebrile, heart rate in the 50s and 60s, blood pressure 146/66, pulse ox 94% on room air HEENT: Head is atraumatic, normocephalic. Left eye prosthesis. Sclerae is anicteric. NECK: Supple. No JVD. No lymphadenopathy. No thyromegaly. LUNGS: Clear to auscultation. No wheezes or rhonchi. No intercostal retractions. HEART: Regular rate and rhythm. No murmur. ABDOMEN: Soft. Bowel sounds are present. No masses. No tenderness. EXTREMITIES: No pedal edema. No calf tenderness. NEUROLOGICAL: Patient is awake, alert and oriented x3. Cranial nerves 2 through 12 are grossly intact. 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 Patient was seen and examined. Objective - Vital Signs Vital signs: Vital Signs Temp 97.7 F 03/02/19 04:00 Pulse 108 H 03/02/19 07:13 Resp 18 03/02/19 06:10 BP 113/68 03/02/19 07:30 Pulse Ox 91 L 03/02/19 06:10 Intake & Output 03/01/19 03/02/19 03/02/19 18:59 06:59 18:59 Intake Total 1010 0 Output Total 900 550 Balance 110 -550 0 Weight 67.5 kg Intake: Intake, IV Titration 50 Amount cefTRIAXone 1 gm In 50 Sodium Chloride 0.9% 50 ml @ 100 mls/hr IVPB Q24HR [facility] Rx#:[id number] Oral 960 0 Output: Urine 900 550 Other: Voiding Method Urinal Urinal # Voids 1 - Labs CBC & Chem 7: 03/02/19 06:09 03/02/19 06:09 Labs: Abnormal Lab Results - Last 24 Hours (Table) 03/02/19 03/02/19 Range/Units 06:09 06:09 WBC 12.5 H (3.8-10.6) k/uL PT 18.5 H (9.0-12.0) sec INR 1.9 H (<1.2) Microbiology - Last 24 Hours (Table) 02/28/19 12:23 Blood Culture - Preliminary Blood No Growth after 24 hours
[2019-03-02 11:39] LABS: Glucose,Whole Blood 162 mg/dL (75-99)
--- NOTE | 2019-03-02 12:25 | P.PN ---
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 He has periods of severe bradycardia as well as has symptomatic RVR. Normal TSH normal electrolytes Bradycardia induced with higher doses of beta blockers Periods of tachycardia which are very symptomatic when beta dwight dose is reduced Plan Permanent pacemaker with physiologic septal pacing Maximization of beta blockers thereafter I discussed this with the patient Objective - Vital Signs Vital signs: Vital Signs Temp 97.7 F 03/02/19 04:00 Pulse 108 H 03/02/19 07:13 Resp 18 03/02/19 06:10 BP 113/68 03/02/19 07:30 Pulse Ox 95 03/02/19 11:22 Intake & Output 03/01/19 03/02/19 03/02/19 18:59 06:59 18:59 Intake Total 1010 0 Output Total 900 550 Balance 110 -550 0 Weight 67.5 kg Intake: Intake, IV Titration 50 Amount cefTRIAXone 1 gm In 50 Sodium Chloride 0.9% 50 ml @ 100 mls/hr IVPB Q24HR [facility] Rx#:[id number] Oral 960 0 Output: Urine 900 550 Other: Voiding Method Urinal Urinal # Voids 1 - Labs CBC & Chem 7: 03/02/19 06:09 03/02/19 06:09 Labs: Abnormal Lab Results - Last 24 Hours (Table) 03/02/19 03/02/19 03/02/19 Range/Units 06:09 06:09 11:19 WBC 12.5 H (3.8-10.6) k/uL PT 18.5 H (9.0-12.0) sec INR 1.9 H (<1.2) POC Glucose (mg/dL) 162 H (75-99) mg/dL Microbiology - Last 24 Hours (Table) 02/28/19 12:23 Blood Culture - Preliminary Blood No Growth after 24 hours
[2019-03-02 13:25] LABS: Eosinophils # (M) 0.13 k/uL (0-0.7); Lymphocytes # (M) 7.75 k/uL (1.0-4.8); Neutrophils # (M) 4.13 k/uL (1.3-7.7); Neutrophils % (M) 33 %; Nucleated Red Blood Cells 0 /100 WBC (0-0); Total Cells Counted 100
[2019-03-02 16:36] LABS: Glucose,Whole Blood 159 mg/dL (75-99)
[2019-03-02] MEDS: WARFARIN 5 MG TAB PO SCH (17:24)
[2019-03-02] MEDS ORDERED: SODIUM CHLORIDE 0.9% 500 ML 500 ML IV ONE (17:40)
[2019-03-02] MEDS: DILTIAZEM 125 MG in SODIUM CHLORIDE 0.9% 100 ML IV SCH (19:01)
[2019-03-02] MEDS ORDERED: diphenhydrAMINE 25 MG CAP PO PRN (19:12)
[2019-03-02] MEDS: ATORVASTATIN 10 MG TAB PO SCH (20:38)
[2019-03-02] MEDS: FLUTICASONE 50MCG/SPRAY NASAL 16GM EA NOSTRIL SCH (20:38)
[2019-03-02 21:00] LABS: Glucose,Whole Blood 127 mg/dL (75-99)
--- NOTE | 2019-03-02 23:52 | P.PN ---
Subjective Progress Note Date: 03/02/19 Principal diagnosis: Chest pain Paroxysmal atrial fibrillation Patient is a 89-year-old male with a known history of approximately fibrillation on anticoagulation with Coumadin, history of CVA/TIA with memory impairment, hypertension, hyperlipidemia and history of coronary artery disease with stent placement about 10 years ago came to ER with the complaints of chest pain yeste rday morning and woke up from sleep. Patient did have mid retrosternal stabbing chest pain with associated shortness of breath. Denied radiation. Patient felt nauseous. No vomiting. No headache or dizziness or lightheadedness. Patient felt sweaty. Patient says that his blood pressure was high at the time and is also elevated heart rate. EMS was called and was told that his heart rate went up to 224. Patient was brought to the hospital by EMS. Patient denied any fever or chills. No recent upper respiratory infection. No sick contacts at home. Patient says that his chest pain is similar to the pain when he had heart attack 10 years ago. Patient has not been taking his metoprolol dose for the past 3 days due to delay in prescription service. EKG showed normal sinus rhythm with right bundle-branch block and bursts of nonsustained atrial tachycardia. Chest x-ray showed left basilar atelectasis, pneumonia could be considered. Follow-up is recommended. INR 3.4, lactic acid 3.2 03/02/2019 Patient is currently sitting on the chair comfortably. No complaints of chest pain or shortness of breath. Apparently patient did have an episode of sharp chest pain left retrosternal when he had an episode of A. fib in the morning as noted by cardiology. Cardiology is recommending pacemaker placement. Otherwise patient denied any complaints of nausea vomiting or abdominal pain. No fever no chills. No cough or sputum production. Current medications reviewed Objective - Vital Signs Vital signs: Vital Signs Temp 97.6 F 03/02/19 15:44 Pulse 140 H 03/02/19 18:15 Resp 18 03/02/19 17:07 BP 104/80 03/02/19 18:15 Pulse Ox 97 03/02/19 17:07 Intake & Output 03/02/19 03/02/19 03/03/19 06:59 18:59 06:59 Intake Total 240 525 Output Total 550 250 Balance -550 240 275 Weight 67.5 kg Intake: IV 250 Sodium Chloride 0.9% 500 250 ml 500 ml @ 999 mls/hr IV .Q31M [facility] Rx#:[id number] Oral 240 275 Output: Urine 550 250 Other: Voiding Method Urinal Urinal # Voids 1 2 1 - Exam PHYSICAL EXAMINATION: Patient is lying in the bed comfortably, no acute distress, awake alert and oriented.. HEENT: Normocephalic. Neck is supple. Left eye droop. Pupils reactive. Nostrils clear. Oral cavity is moist. Ears reveal no drainage. Neck reveals no JVD, carotid bruits, or thyromegaly. CHEST EXAMINATION: Trachea is central. Symmetrical expansion. Lung orellana clear to auscultation and percussion. CARDIAC: Normal S1, S2 with no gallops. No murmurs ABDOMEN: Soft. Bowel sounds normal. No organomegaly. No abdominal bruits. Extremities: reveal no edema. No clubbing or cyanosis Neurologically awake, alert, oriented x3 with well-coordinated movements. Memory impairment. No focal deficits noted Skin: No rash or skin lesions. Psychiatric: Coperative. Nonsuicidal Musculoskeletal: No joint swelling or deformity. Normal range of motion. - Labs CBC & Chem 7: 03/02/19 06:09 03/02/19 06:09 Labs: Abnormal Lab Results - Last 24 Hours (Table) 03/02/19 03/02/19 03/02/19 Range/Units 06:09 06:09 11:19 WBC 12.5 H (3.8-10.6) k/uL Lymphocytes # (Manual) 7.75 H (1.0-4.8) k/uL PT 18.5 H (9.0-12.0) sec INR 1.9 H (<1.2) POC Glucose (mg/dL) 162 H (75-99) mg/dL 03/02/19 Range/Units 16:21 WBC (3.8-10.6) k/uL Lymphocytes # (Manual) (1.0-4.8) k/uL PT (9.0-12.0) sec INR (<1.2) POC Glucose (mg/dL) 159 H (75-99) mg/dL Microbiology - Last 24 Hours (Table) 02/28/19 12:23 Blood Culture - Preliminary Blood No Growth after 48 hours Assessment and Plan Assessment: Paroxysmal atrial ablation with RVR Chest pain. Possible angina. Ruled out acute coronary syndrome. 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 Unlikely pneumonia. 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 Serial EKG and troponins. Cardiology was consulted. 2-D echo cardiac nose ordered. Currently rate is controlled. We will continue the home medications including Toprol-XL and digoxin. Patient also on Vasotec, hydralazine and simvastatin. Patient was given a dose of IV antibiotics in the ER. We will continue to monitor for any infection. Further recommendations based on the clinical course. Time with Patient: Greater than 30
[2019-03-03] MEDS: DILTIAZEM 125 MG in SODIUM CHLORIDE 0.9% 100 ML IV SCH ×2 (06:16→19:58)
[2019-03-03 06:18] LABS: Glucose,Whole Blood 107 mg/dL (75-99)
[2019-03-03] MEDS: LISINOPRIL 20 MG TAB PO SCH (06:19)
[2019-03-03] MEDS: METOPROLOL SUCCINATE (ER) 25 MG TAB.ER.24H PO SCH (06:19)
[2019-03-03] MEDS: metFORMIN 500 MG TAB PO SCH ×2 (06:19→17:09)
[2019-03-03] MEDS: DIGOXIN 125 MCG TAB PO SCH (06:19)
[2019-03-03] MEDS: FLUTICASONE 50MCG/SPRAY NASAL 16GM EA NOSTRIL SCH (06:19)
[2019-03-03] MEDS ORDERED: ceFAZolin 1,000 MG in SODIUM CHLORIDE 0.9% IRRIGATIO 250 ML IRRIGATION ONE (08:41)
[2019-03-03] MEDS ORDERED: LIDOCAINE 1% INJ 10MG/ML (20 ML MDV) ONE (09:01)
[2019-03-03] MEDS ORDERED: fentaNYL (PF) 50 MCG/ML 2 ML AMP ONE (09:22)
[2019-03-03] MEDS ORDERED: MIDAZOLAM 2 MG/2 ML VIAL ONE (09:22)
[2019-03-03] MEDS ORDERED: diphenhydrAMINE 50 MG/ML 1 ML VIAL ONE (09:22)
[2019-03-03] MEDS ORDERED: IV FLUID CONTINUATION 500 ML IV ONE (09:22)
[2019-03-03] MEDS ORDERED: PROPOFOL 10 MG/ML 20 ML VIAL IV ONE (09:22)
[2019-03-03] MEDS ORDERED: SODIUM CHLORIDE 0.9% 500 ML 500 ML IV ONE ×2 (09:22→11:30)
[2019-03-03] MEDS ORDERED: SODIUM CHLORIDE 0.9% 250 ML IV ONE (09:36)
[2019-03-03] MEDS ORDERED: IOPAMIDOL-250 50ML BTL IV ONE (09:39)
[2019-03-03] MEDS: ceFAZolin IN SWFI 2 GM/20 ML SYRINGE IVP STA ×2 (10:11→10:12)
[2019-03-03] MEDS ORDERED: LIDOCAINE 1% INJ 10MG/ML (20 ML MDV) SQ ONE ×2 (10:19→10:30)
[2019-03-03] MEDS ORDERED: ACETAMINOPHEN TAB 325 MG TAB PO PRN (12:46)
[2019-03-03] MEDS ORDERED: ACETAMINOPHEN IV (For NPO) 1,000 MG in EMPTY BAG 1 BAG IVPB ONE (12:46)
[2019-03-03] MEDS ORDERED: HYDROcodone/APAP 5-325MG 1 EACH TAB PO PRN (12:46)
--- NOTE | 2019-03-03 13:03 | ECHOF ---
Referral Reason:CHECK FOR PERICARDIAL EFFUSION MEASUREMENTS -------- HEIGHT: 172.7 cm WEIGHT: 67.1 kg BP: FINDINGS -------- Limited Study For Pacemaker: Rule out Pericardial Effusion. There is no pericardial effusion. CONCLUSIONS -------- 1. Limited Study For Pacemaker: Rule out Pericardial Effusion. 2. There is no pericardial effusion. LAMP MECHANIC: Radha Arriaga RDCS
[2019-03-03] MEDS: HYDROcodone/APAP 10-325MG 1 EACH TAB PO PRN ×2 (14:51→20:51)
--- NOTE | 2019-03-03 14:55 | PCN ---
PROCEDURE NOTE This is an 89-year-old male patient with tachybrady syndrome who becomes extremely symptomatic with a drop in blood pressure when his heart rates go up to 130s to 140 beats per minute during atrial fibrillation. Later when he is treated with beta blockers and digoxin for rate control, his heart rates can go down into the 40s. He was brought in for a permanent pacemaker implantation. He has paroxysmal atrial fibrillation and therefore a dual-chamber device with his size with physiologic septal pacing was recommended. The patient is brought to the EP lab in a fasting state. Written informed consent was obtained prior to the procedure. The left shoulder area was prepped and draped as per protocol. 1% lidocaine was used for local anesthesia. IV antibiotics were administered. A 4 cm incision made parallel to the deltopectoral groove, about 1.5 cm medial to it. The incision was carried down to the level of the pectoralis muscle. A subfascial pocket was made. The hemostasis was assured and the LV vein access was obtained and sheaths were placed in the axillary vein and via these pacemaker leads placed. The atrial lead was beqom model #5076, 52 cm length and serial #[id number]. This was screwed in the right atrial appendage. Patient was in atrial tachycardia, his in sensing was 2.2 mV, pacing impedance 642 ohms. The lead is screw in position. The RV lead was initially positioned in the RV apex. However, it was very difficult to position the lead in the true apex. When it was placed in the very low septum just above the apex. the thresholds were high. Therefore, this position was abandoned and the lead was positioned in the RV septum with excellent pacing and sensing function. Pacing impedance 1110 ohms, pacing 15 R-waves 15 mV. Pacing threshold 0.5 V at 0.7 milliseconds. Physiologic septal pacing HIS bundle pacing was attempted. However, the right atrium was quite enlarged and despite multiple attempts for over an hour simply with the sleeve, we could not achieve good contact for HIS bundle pacing. P did get his bundle signals and screw the lead in the appropriate in the appropriate position, but this lead would repeatedly dislodge suggesting poor contact despite obtaining HIS bundle signals. Therefore, the slseeve as lead was removed the end of the procedure and a dual-chamber pacemaker was implanted. Wound was closed in 3 layers and dressed per protocol. The dual chamber was a Medtronic Mely SDR MRI, serial number [id number]. RESULTS: Successful dual-chamber pacemaker implantation. The atrial and RV leads were in stable position at the end of the procedure with breathing. PLAN: Maximize beta blockers. Continue low-dose digoxin. Continue anticoagulation. NEDRA / TRAVIS: [id number] /
[2019-03-03 16:26] LABS: Glucose,Whole Blood 107 mg/dL (75-99)
[2019-03-03] MEDS: hydrALAZINE HCL 25 MG TAB PO SCH ×2 (17:02→17:08)
[2019-03-03] MEDS: WARFARIN 3 MG TAB PO SCH (17:08)
[2019-03-03] MEDS: ceFAZolin IN SWFI 2 GM/20 ML SYRINGE IVP SCH ×2 (17:09→20:52)
[2019-03-03] MEDS: ATORVASTATIN 20 MG TAB PO SCH (19:58)
[2019-03-03 21:01] LABS: Glucose,Whole Blood 153 mg/dL (75-99)
[2019-03-04] MEDS: DIGOXIN 125 MCG TAB PO SCH (04:18)
[2019-03-04] MEDS: HYDROcodone/APAP 10-325MG 1 EACH TAB PO PRN ×3 (04:18→23:30)
[2019-03-04] MEDS: ceFAZolin IN SWFI 2 GM/20 ML SYRINGE IVP SCH ×2 (05:35→09:21)
[2019-03-04 06:08] LABS: Glucose,Whole Blood 126 mg/dL (75-99)
[2019-03-04] MEDS: metFORMIN 500 MG TAB PO SCH ×2 (07:17→17:28)
[2019-03-04 08:13] LABS: INR 2.8 (<1.2); Prothrombin Time 27.1 sec (9.0-12.0)
--- NOTE | 2019-03-04 08:14 | XR ---
EXAMINATION TYPE: XR chest 2V DATE OF EXAM: 03/04/2019 COMPARISON: 03/02/2019 HISTORY: Lead placement check. Status post pacemaker insertion. TECHNIQUE: Frontal and lateral views of the chest are obtained. FINDINGS: There is chronic left hemidiaphragm elevation. Right basilar nodular density likely repres ents a nipple shadow. Cardiomediastinal silhouette is rotated and slightly shifted to the right but a ppears similar to the prior and within normal limits. Pulmonary arteries appear enlarged suggesting u nderlying pulmonary arterial hypertension in the setting of underlying COPD as there is flattening of the diaphragms on the lateral view and biapical lucency. There is a newly placed dual lead left-sided cardiac device with a sinoatrial hans and ventricular l ead. No postprocedural pneumothorax. Flowing anterior osteophytes along the thoracic spine suggest di ffuse idiopathic skeletal hyperostosis. No pulmonary vascular congestion. IMPRESSION: 1. Interval insertion of an appropriately placed cardiac pacemaker without postprocedural pneumothora x or pulmonary vascular congestion. 2. COPD, chronic left hemidiaphragm elevation, suggesting pulmonary arterial hypertension, and right basilar nodular density that likely represents the nipple shadow. This could be confirmed with repeat chest radiograph after placement of a nipple marker.
[2019-03-04 08:19] LABS: HCT 51.1 % (39.0-53.0); HGB 16.6 gm/dL (13.0-17.5); MCHC 32.5 g/dL (31.0-37.0); MCV 92.4 fL (80.0-100.0); Mean Platelet Volume 8.3; Platelet Count 142 k/uL (150-450); RBC 5.53 m/uL (4.30-5.90); RDW 13.8 % (11.5-15.5); WBC 15.2 k/uL (3.8-10.6)
[2019-03-04 08:23] LABS: Anion Gap 11 mmol/L; Blood Urea Nitrogen 18 mg/dL (9-20); Calcium 9.2 mg/dL (8.4-10.2); Carbon Dioxide 23 mmol/L (22-30); Chloride 107 mmol/L (98-107); Glucose 95 mg/dL (74-99); Potassium 4.9 mmol/L (3.5-5.1); Sodium 141 mmol/L (137-145)
[2019-03-04] MEDS: hydrALAZINE HCL 25 MG TAB PO SCH (08:45)
[2019-03-04] MEDS: FLUTICASONE 50MCG/SPRAY NASAL 16GM EA NOSTRIL SCH (08:45)
[2019-03-04] MEDS ORDERED: LISINOPRIL 20 MG TAB PO SCH (09:00)
[2019-03-04 11:16] LABS: Band Neutrophils % 1 %; Eosinophils # (M) 0.76 k/uL (0-0.7); Lymphocytes # (M) 6.23 k/uL (1.0-4.8); Monocytes # (M) 1.06 k/uL (0-1.0); Neutrophils % (M) 46 %; Nucleated Red Blood Cells 0 /100 WBC (0-0); Total Cells Counted 100
[2019-03-04 11:45] LABS: Glucose,Whole Blood 73 mg/dL (75-99)
[2019-03-04] MEDS ORDERED: METOPROLOL SUCCINATE (ER) 100 MG TAB.ER.24H PO SCH (14:00)
[2019-03-04 16:28] LABS: Glucose,Whole Blood 79 mg/dL (75-99)
[2019-03-04] MEDS: WARFARIN 3 MG TAB PO SCH (17:28)
[2019-03-04 18:21] LABS: Hemoglobin A1C 6.2 % (4.0-6.0)
--- NOTE | 2019-03-04 19:35 | P.PN ---
Subjective Patient is doing well this morning. His pacemaker interrogation within normal limits. He received 100 mg of metoprolol but later his blood pressure dropped and he received IV fluids 250 mL his blood pressure is improved he continues digoxin but I stopped both hydralazine and lisinopril and switch to metoprolol to 50 g twice daily long-acting He has atrial fibrillation with RVR and is very symptomatic from this therefore I would primarily treat him with metoprolol for rate control Blood pressure 123/72 mmHg afebrile pulse rate in the 60s atrial paced Breath sounds are reduced To that no rhonchi no crackles Pacemaker site is healed well Heart sounds S1 and S2 are soft soft systolic murmur Abdomen soft extremities are warm no edema Impression Tachycardia bradycardia syndrome with very symptomatic A. fib with RVR Plan Metoprolol succinate 50 mg twice daily and digoxin 0.15 mg by mouth daily Stop lisinopril and stop hydralazine and monitor on telemetry and watch blood pressures Chest x-ray does not show any pneumothorax Objective - Vital Signs Vital signs: Vital Signs Temp 98 F 03/04/19 16:22 Pulse 61 03/04/19 16:22 Resp 16 03/04/19 16:22 BP 123/73 03/04/19 16:22 Pulse Ox 96 03/04/19 16:00 Intake & Output 03/04/19 03/04/19 03/05/19 06:59 18:59 06:59 Intake Total 20 600 Output Total 400 150 Balance -380 450 Weight 87.1 kg Intake: IV 20 0.9% NS 20 Oral 600 Output: Urine 400 150 Other: Voiding Method Urinal Urinal Incontinent Incontinent # Voids 1 - Labs CBC & Chem 7: 03/04/19 07:34 03/04/19 07:34 Labs: Abnormal Lab Results - Last 24 Hours (Table) 03/03/19 03/04/19 03/04/19 Range/Units 21:00 06:07 07:34 WBC 15.2 H (3.8-10.6) k/uL Plt Count 142 L (150-450) k/uL Lymphocytes # (Manual) 6.23 H (1.0-4.8) k/uL Monocytes # (Manual) 1.06 H (0-1.0) k/uL Eosinophils # (Manual) 0.76 H (0-0.7) k/uL Pathologist Review See comment A PT (9.0-12.0) sec INR (<1.2) POC Glucose (mg/dL) 153 H 126 H (75-99) mg/dL Hemoglobin A1c (4.0-6.0) % 03/04/19 03/04/19 03/04/19 Range/Units 07:34 07:34 11:24 WBC (3.8-10.6) k/uL Plt Count (150-450) k/uL Lymphocytes # (Manual) (1.0-4.8) k/uL Monocytes # (Manual) (0-1.0) k/uL Eosinophils # (Manual) (0-0.7) k/uL Pathologist Review PT 27.1 H (9.0-12.0) sec INR 2.8 H (<1.2) POC Glucose (mg/dL) 73 L (75-99) mg/dL Hemoglobin A1c 6.2 H (4.0-6.0) % Microbiology - Last 24 Hours (Table) 02/28/19 12:23 Blood Culture - Preliminary Blood No Growth after 96 hours
[2019-03-04] MEDS: ATORVASTATIN 20 MG TAB PO SCH (21:19)
[2019-03-04] MEDS: METOPROLOL SUCCINATE (ER) 50 MG TAB.ER.24H PO SCH (21:31)
[2019-03-04 21:32] LABS: Glucose,Whole Blood 214 mg/dL (75-99)
--- NOTE | 2019-03-05 01:48 | P.PN ---
Subjective Progress Note Date: 03/03/19 Principal diagnosis: Chest pain Paroxysmal atrial fibrillation Patient is a 89-year-old male with a known history of approximately fibrillation on anticoagulation with Coumadin, history of CVA/TIA with memory impairment, hypertension, hyperlipidemia and history of coronary artery disease with stent placement about 10 years ago came to ER with the complaints of chest pain yeste rday morning and woke up from sleep. Patient did have mid retrosternal stabbing chest pain with associated shortness of breath. Denied radiation. Patient felt nauseous. No vomiting. No headache or dizziness or lightheadedness. Patient felt sweaty. Patient says that his blood pressure was high at the time and is also elevated heart rate. EMS was called and was told that his heart rate went up to 224. Patient was brought to the hospital by EMS. Patient denied any fever or chills. No recent upper respiratory infection. No sick contacts at home. Patient says that his chest pain is similar to the pain when he had heart attack 10 years ago. Patient has not been taking his metoprolol dose for the past 3 days due to delay in prescription service. EKG showed normal sinus rhythm with right bundle-branch block and bursts of nonsustained atrial tachycardia. Chest x-ray showed left basilar atelectasis, pneumonia could be considered. Follow-up is recommended. INR 3.4, lactic acid 3.2 03/02/2019 Patient is currently sitting on the chair comfortably. No complaints of chest pain or shortness of breath. Apparently patient did have an episode of sharp chest pain left retrosternal when he had an episode of A. fib in the morning as noted by cardiology. Cardiology is recommending pacemaker placement. Otherwise patient denied any complaints of nausea vomiting or abdominal pain. No fever no chills. No cough or sputum production. 03/03/2019 Patient denied any complaints of chest pain or shortness of breath. Patient is scheduled for pacemaker placement today. Otherwise patient is being continued on beta blockers and digoxin. No nausea vomiting or abdominal pain. 2-D echocardiogram showed moderate aortic stenosis. Normal EF. Current medications reviewed Objective - Vital Signs Vital signs: Vital Signs Temp 97.9 F 03/03/19 20:00 Pulse 63 03/03/19 20:00 Resp 18 03/03/19 20:00 BP 132/69 03/03/19 20:00 Pulse Ox 95 03/03/19 21:02 Intake & Output 03/03/19 03/03/19 03/04/19 06:59 18:59 06:59 Intake Total 525 940 10 Output Total 1050 100 Balance -525 840 10 Weight 67.2 kg Intake: IV 250 700 10 0.9% NS 10 Sodium Chloride 0.9% 500 250 ml 500 ml @ 999 mls/hr IV .Q31M [facility] Rx#:[id number] Oral 275 240 Output: Urine 1050 100 Other: Voiding Method Urinal Urinal Urinal # Voids 1 2 - Exam PHYSICAL EXAMINATION: Patient is lying in the bed comfortably, no acute distress, awake alert and oriented.. HEENT: Normocephalic. Neck is supple. Left eye droop. Pupils reactive. Nostrils clear. Oral cavity is moist. Ears reveal no drainage. Neck reveals no JVD, carotid bruits, or thyromegaly. CHEST EXAMINATION: Trachea is central. Symmetrical expansion. Lung orellana clear to auscultation and percussion. CARDIAC: Normal S1, S2 with no gallops. No murmurs ABDOMEN: Soft. Bowel sounds normal. No organomegaly. No abdominal bruits. Extremities: reveal no edema. No clubbing or cyanosis Neurologically awake, alert, oriented x3 with well-coordinated movements. Mem ory impairment. No focal deficits noted Skin: No rash or skin lesions. Psychiatric: Coperative. Nonsuicidal Musculoskeletal: No joint swelling or deformity. Normal range of motion. - Labs CBC & Chem 7: 03/04/19 07:34 03/04/19 07:34 Labs: Abnormal Lab Results - Last 24 Hours (Table) 03/03/19 03/03/19 03/03/19 Range/Units 06:16 16:19 21:00 POC Glucose (mg/dL) 107 H 107 H 153 H (75-99) mg/dL Microbiology - Last 24 Hours (Table) 02/28/19 12:23 Blood Culture - Preliminary Blood No Growth after 72 hours Assessment and Plan Assessment: Paroxysmal atrial ablation with RVR. Symptomatic. Scheduled for pacemaker placement today. Chest pain. Ruled out acute coronary syndrome. 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 Unlikely pneumonia. 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 Serial EKG and troponins negative. Cardiology is following.. 2-D echo cardiogram ordered. Currently rate is controlled. We will continue the home medications including Toprol-XL and digoxin. Patient also on Vasotec, hydralazine and simvastatin. Patient was given a dose of IV antibiotics in the ER. We will continue to monitor for any infection. Further recommendations based on the clinical course. Time with Patient: Greater than 30
--- NOTE | 2019-03-05 01:51 | P.PN ---
Subjective Progress Note Date: 03/04/19 Principal diagnosis: Chest pain Paroxysmal atrial fibrillation Patient is a 89-year-old male with a known history of approximately fibrillation on anticoagulation with Coumadin, history of CVA/TIA with memory impairment, hypertension, hyperlipidemia and history of coronary artery disease with stent placement about 10 years ago came to ER with the complaints of chest pain yeste rday morning and woke up from sleep. Patient did have mid retrosternal stabbing chest pain with associated shortness of breath. Denied radiation. Patient felt nauseous. No vomiting. No headache or dizziness or lightheadedness. Patient felt sweaty. Patient says that his blood pressure was high at the time and is also elevated heart rate. EMS was called and was told that his heart rate went up to 224. Patient was brought to the hospital by EMS. Patient denied any fever or chills. No recent upper respiratory infection. No sick contacts at home. Patient says that his chest pain is similar to the pain when he had heart attack 10 years ago. Patient has not been taking his metoprolol dose for the past 3 days due to delay in prescription service. EKG showed normal sinus rhythm with right bundle-branch block and bursts of nonsustained atrial tachycardia. Chest x-ray showed left basilar atelectasis, pneumonia could be considered. Follow-up is recommended. INR 3.4, lactic acid 3.2 03/02/2019 Patient is currently sitting on the chair comfortably. No complaints of chest pain or shortness of breath. Apparently patient did have an episode of sharp chest pain left retrosternal when he had an episode of A. fib in the morning as noted by cardiology. Cardiology is recommending pacemaker placement. Otherwise patient denied any complaints of nausea vomiting or abdominal pain. No fever no chills. No cough or sputum production. 03/03/2019 Patient denied any complaints of chest pain or shortness of breath. Patient is scheduled for pacemaker placement today. Otherwise patient is being continued on beta blockers and digoxin. No nausea vomiting or abdominal pain. 2-D echocardiogram showed moderate aortic stenosis. Normal EF. 03/04/2019 Patient status post permanent pacemaker placement. Patient is otherwise asymptomatic except some soreness at the pacemaker insertion site. No commerce of chest pain or shortness of breath. No headache or dizziness or lightheadedness. Patient is being continued on metoprolol and digoxin. On Coumadin for anticoagulation. Anticipate discharge in next 24-48 hours once daily by cardiology. Current medications reviewed Objective - Vital Signs Vital signs: Vital Signs Temp 98 F 03/04/19 16:22 Pulse 59 L 03/04/19 21:15 Resp 18 03/04/19 20:08 BP 116/66 03/04/19 21:15 Pulse Ox 96 03/04/19 16:00 Intake & Output 03/04/19 03/04/19 03/05/19 06:59 18:59 06:59 Intake Total 20 600 Output Total 400 150 Balance -380 450 Weight 87.1 kg Intake: IV 20 0.9% NS 20 Oral 600 Output: Urine 400 150 Other: Voiding Method Urinal Urinal Incontinent Incontinent # Voids 1 - Exam PHYSICAL EXAMINATION: Patient is lying in the bed comfortably, no acute distress, awake alert and oriented.. HEENT: Normocephalic. Neck is supple. Left eye droop. Pupils reactive. Nostrils clear. Oral cavity is moist. Ears reveal no drainage. Neck reveals no JVD, carotid bruits, or thyromegaly. CHEST EXAMINATION: Trachea is central. Symmetrical expansion. Lung orellana clear to auscultation and percussion. CARDIAC: Normal S1, S2 with no gallops. No murmurs ABDOMEN: Soft. Bowel sounds normal. No organomegaly. No abdominal bruits. Extremities: reveal no edema. No clubbing or cyanosis Neurologically awake, alert, oriented x3 with well-coordinated movements. Memory impairment. No focal deficits noted Skin: No rash or skin lesions. Psychiatric: Coperative. Nonsuicidal Musculoskeletal: No joint swelling or deformity. Normal range of motion. - Labs CBC & Chem 7: 03/04/19 07:34 03/04/19 07:34 Labs: Abnormal Lab Results - Last 24 Hours (Table) 03/04/19 03/04/19 03/04/19 Range/Units 06:07 07:34 07:34 WBC 15.2 H (3.8-10.6) k/uL Plt Count 142 L (150-450) k/uL Lymphocytes # (Manual) 6.23 H (1.0-4.8) k/uL Monocytes # (Manual) 1.06 H (0-1.0) k/uL Eosinophils # (Manual) 0.76 H (0-0.7) k/uL Pathologist Review See comment A PT 27.1 H (9.0-12.0) sec INR 2.8 H (<1.2) POC Glucose (mg/dL) 126 H (75-99) mg/dL Hemoglobin A1c (4.0-6.0) % 03/04/19 03/04/19 03/04/19 Range/Units 07:34 11:24 21:31 WBC (3.8-10.6) k/uL Plt Count (150-450) k/uL Lymphocytes # (Manual) (1.0-4.8) k/uL Monocytes # (Manual) (0-1.0) k/uL Eosinophils # (Manual) (0-0.7) k/uL Pathologist Review PT (9.0-12.0) sec INR (<1.2) POC Glucose (mg/dL) 73 L 214 H (75-99) mg/dL Hemoglobin A1c 6.2 H (4.0-6.0) % Microbiology - Last 24 Hours (Table) 02/28/19 12:23 Blood Culture - Preliminary Blood No Growth after 96 hours 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 Status post permanent pacemaker placement on 03/03/2019. Paroxysmal atrial ablation with RVR. Symptomatic. Chest pain. Ruled out acute coronary syndrome. 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 Unlikely pneumonia. 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 Serial EKG and troponins negative. Cardiology is following.. 2-D echo cardiogram ordered. Currently rate is controlled. We will continue the home medications including Toprol-XL and digoxin. Patient also on Vasotec, hydralazine and simvastatin. Patient was given a dose of IV antibiotics in the ER. We will continue to monitor for any infection. Further recommendations based on the clinical course. Time with Patient: Greater than 30
[2019-03-05 06:24] LABS: Glucose,Whole Blood 92 mg/dL (75-99)
[2019-03-05 06:49] LABS: HCT 45.1 % (39.0-53.0); HGB 14.9 gm/dL (13.0-17.5); MCH 30.2 pg (25.0-35.0); MCHC 33.1 g/dL (31.0-37.0); MCV 91.2 fL (80.0-100.0); Mean Platelet Volume 8.1; Platelet Count 133 k/uL (150-450); RBC 4.95 m/uL (4.30-5.90); RDW 13.7 % (11.5-15.5); WBC 11.3 k/uL (3.8-10.6)
[2019-03-05 07:01] LABS: Anion Gap 6 mmol/L; Blood Urea Nitrogen 15 mg/dL (9-20); Calcium 8.7 mg/dL (8.4-10.2); Carbon Dioxide 30 mmol/L (22-30); Chloride 104 mmol/L (98-107); Glucose 92 mg/dL (74-99); Potassium 4.4 mmol/L (3.5-5.1); Sodium 140 mmol/L (137-145)
[2019-03-05] MEDS: metFORMIN 500 MG TAB PO SCH ×2 (07:15→17:08)
[2019-03-05] MEDS: DIGOXIN 125 MCG TAB PO SCH (07:17)
[2019-03-05 07:49] LABS: Eosinophils # (M) 0.34 k/uL (0-0.7); Lymphocytes # (M) 5.42 k/uL (1.0-4.8); Monocytes # (M) 0.34 k/uL (0-1.0); Neutrophils # (M) 5.31 k/uL (1.3-7.7); Neutrophils % (M) 47 %; Nucleated Red Blood Cells 0 /100 WBC (0-0); Total Cells Counted 200
[2019-03-05] MEDS: FLUTICASONE 50MCG/SPRAY NASAL 16GM EA NOSTRIL SCH (08:44)
[2019-03-05] MEDS: METOPROLOL SUCCINATE (ER) 50 MG TAB.ER.24H PO SCH ×2 (08:47→21:26)
[2019-03-05] MEDS: FUROSEMIDE 20 MG TAB PO SCH (08:47)
--- NOTE | 2019-03-05 09:46 | ECHOF ---
Referral Reason:lightheadedness-post PPM-decreased BP MEASUREMENTS -------- HEIGHT: 172.7 cm WEIGHT: 86.2 kg BP: FINDINGS -------- Pt had Pacemaker Insertiion 03/03/19: Limited Study to R/o Pericardial Effusion. There is no pericardial effusion. CONCLUSIONS -------- 1. Pt had Pacemaker Insertiion 03/03/19: Limited Study to R/o Pericardial Effusion. 2. There is no pericardial effusion. NEWS REEL CAMERAMAN: Radha Arriaga RDCS
--- NOTE | 2019-03-05 11:44 | P.PN ---
Subjective Patient is resting comfortably in bed. He is tolerating his medications well no chest discomfort but he has some discomfort over the pacemaker site. There is no swelling no bruising Breath sounds are reduced bilaterally Heart sounds are soft there's soft systolic murmur Abdomen soft Pacemaker bilateral lower extremity edema noted Temperature 98.2 Pulse rate in the 70s Blood pressure 146/80 to 145/81 and 121/68 mmHg Impression and plan Tachycardia bradycardia syndrome status post permanent pacemaker implantation Metoprolol initially increased 100 mg by mouth daily and this dropped his blood pressure therefore I changed this to 50 g twice daily His blood pressure is stable and therefore I am adding lisinopril but at a low dose of 2.5 mg by mouth daily I will still hold off on hydralazine Warfarin 6 mrem daily to continue INR 2.0 Lasix 20 mg by mouth daily Labs are reviewed Lites normal Renal function normal, BUN 15 creatinine 0.71 Hemoglobin 14.9 We'll observe him today and if his blood pressure is stable and he is ambulating likely discharge tomorrow Objective - Vital Signs Vital signs: Vital Signs Temp 98.2 F 03/05/19 11:40 Pulse 60 03/05/19 11:40 Resp 18 03/05/19 11:40 BP 121/68 03/05/19 11:40 Pulse Ox 95 03/05/19 11:40 Intake & Output 03/04/19 03/05/19 03/05/19 18:59 06:59 18:59 Intake Total 600 100 300 Output Total 150 350 200 Balance 450 -250 100 Weight 86.5 kg Intake: IV 100 0.9% NS 100 Oral 600 300 Output: Urine 150 350 200 Other: Voiding Method Urinal Urinal Incontinent Incontinent # Voids 1 1 - Labs CBC & Chem 7: 03/05/19 06:14 03/05/19 06:14 Labs: Abnormal Lab Results - Last 24 Hours (Table) 03/04/19 03/04/19 03/04/19 Range/Units 07:34 07:34 11:24 WBC (3.8-10.6) k/uL Plt Count (150-450) k/uL Lymphocytes # (Manual) (1.0-4.8) k/uL Pathologist Review See comment A PT (9.0-12.0) sec INR (<1.2) POC Glucose (mg/dL) 73 L (75-99) mg/dL Hemoglobin A1c 6.2 H (4.0-6.0) % 03/04/19 03/05/19 03/05/19 Range/Units 21:31 06:14 06:14 WBC 11.3 H (3.8-10.6) k/uL Plt Count 133 L (150-450) k/uL Lymphocytes # (Manual) 5.42 H (1.0-4.8) k/uL Pathologist Review PT 20.0 H (9.0-12.0) sec INR 2.0 H (<1.2) POC Glucose (mg/dL) 214 H (75-99) mg/dL Hemoglobin A1c (4.0-6.0) % Microbiology - Last 24 Hours (Table) 02/28/19 12:23 Blood Culture - Preliminary Blood No Growth after 96 hours
[2019-03-05] MEDS: LISINOPRIL 2.5 MG TAB PO SCH (11:50)
[2019-03-05 12:03] LABS: Glucose,Whole Blood 83 mg/dL (75-99)
--- NOTE | 2019-03-05 16:59 | P.PN ---
Subjective 89-year-old male with a known history of approximately fibrillation on anticoagulation with Coumadin, history of CVA/TIA with memory impairment, hyp ertension, hyperlipidemia and history of coronary artery disease with stent placement about 10 years ago came to ER with the complaints of chest pain yesterday morning and woke up from sleep. Patient did have mid retrosternal stabbing chest pain with associated shortness of breath. Denied radiation. Patient felt nauseous. No vomiting. No headache or dizziness or lightheadedness. Patient felt sweaty. Patient says that his blood pressure was high at the time and is also elevated heart rate. EMS was called and was told that his heart rate went up to 224. Patient was brought to the hospital by EMS. Patient denied any fever or chills. No recent upper respiratory infection. No sick contacts at home. Patient says that his chest pain is similar to the pain when he had heart attack 10 years ago. Patient has not been taking his metoprolol dose for the past 3 days due to delay in prescription service. EKG showed normal sinus rhythm with right bundle-branch block and bursts of nonsustained atrial tachycardia. Chest x-ray showed left basilar atelectasis, pneumonia could be considered. Follow-up is recommended. INR 3.4, lactic acid 3.2 03/02/2019 Patient is currently sitting on the chair comfortably. No complaints of chest pain or shortness of breath. Apparently patient did have an episode of sharp chest pain left retrosternal when he had an episode of A. fib in the morning as noted by cardiology. Cardiology is recommending pacemaker placement. Otherwise patient denied any complaints of nausea vomiting or abdominal pain. No fever no chills. No cough or sputum production. 03/03/2019 Patient denied any complaints of chest pain or shortness of breath. Patient is scheduled for pacemaker placement today. Otherwise patient is being continued on beta blockers and digoxin. No nausea vomiting or abdominal pain. 2-D echocardiogram showed moderate aortic stenosis. Normal EF. 03/04/2019 Patient status post permanent pacemaker placement. Patient is otherwise asympto matic except some soreness at the pacemaker insertion site. No commerce of chest pain or shortness of breath. No headache or dizziness or lightheadedness. Patient is being continued on metoprolol and digoxin. On Coumadin for anticoagulation. Anticipate discharge in next 24-48 hours once daily by cardiology. 03/05/2019 Patient heart rate is well controlled, INR is therapeutic, cardiology is re commending one more night and possibility of discharge tomorrow. Constitutional: Denied any fatigue denied any fever. Cardio vascular: denied any chest pain, palpitations Gastrointestinal denied any nausea vomiting Pulmonary: Denied any shortness of breath cough Neurologic denied any new focal deficits All inpatient medications were reviewed and appropriate changes in these medications as dictated in the interval history and assessment and plan. Objective - Vital Signs Vital signs: Vital Signs Temp 98.3 F 03/05/19 15:59 Pulse 60 03/05/19 16:02 Resp 18 03/05/19 16:02 BP 120/71 03/05/19 15:59 Pulse Ox 95 03/05/19 15:59 Intake & Output 03/04/19 03/05/19 03/05/19 18:59 06:59 18:59 Intake Total 600 100 420 Output Total 150 350 325 Balance 450 -250 95 Weight 86.5 kg Intake: IV 100 0.9% NS 100 Oral 600 420 Output: Urine 150 350 325 Other: Voiding Method Urinal Urinal Incontinent Incontinent # Voids 1 1 - Exam PHYSICAL EXAMINATION: GENERAL: The patient is alert and oriented x3, not in any acute distress. Well developed, well nourished. HEENT: Pupils are round and equally reacting to light. EOMI. No scleral icterus. No conjunctival pallor. Normocephalic, atraumatic. No pharyngeal erythema. No thyromegaly. CARDIOVASCULAR: S1 and S2 present. No murmurs, rubs, or gallops. PULMONARY: Chest is clear to auscultation, no wheezing or crackles. ABDOMEN: Soft, nontender, nondistended, normoactive bowel sounds. No palpable organomegaly. MUSCULOSKELETAL: No joint swelling or deformity. EXTREMITIES: No cyanosis, clubbing, or pedal edema. NEUROLOGICAL: Gross neurological examination did not reveal any focal deficits. SKIN: No rashes. - Labs CBC & Chem 7: 03/05/19 06:14 03/05/19 06:14 Labs: Abnormal Lab Results - Last 24 Hours (Table) 03/04/19 03/04/19 03/05/19 Range/Units 07:34 21:31 06:14 WBC 11.3 H (3.8-10.6) k/uL Plt Count 133 L (150-450) k/uL Lymphocytes # (Manual) 5.42 H (1.0-4.8) k/uL PT (9.0-12.0) sec INR (<1.2) POC Glucose (mg/dL) 214 H (75-99) mg/dL Hemoglobin A1c 6.2 H (4.0-6.0) % 03/05/19 Range/Units 06:14 WBC (3.8-10.6) k/uL Plt Count (150-450) k/uL Lymphocytes # (Manual) (1.0-4.8) k/uL PT 20.0 H (9.0-12.0) sec INR 2.0 H (<1.2) POC Glucose (mg/dL) (75-99) mg/dL Hemoglobin A1c (4.0-6.0) % Microbiology - Last 24 Hours (Table) 02/28/19 12:23 Blood Culture - Preliminary Blood No Growth after 120 hours Assessment and Plan Plan: 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 Status post permanent pacemaker placement on 03/03/2019. Paroxysmal atrial fibrillation with RVR. Symptomatic. Presently sinus rhythm Chest pain. Ruled out acute coronary syndrome. History of coronary disease with stent placement 10 years ago Coumadin dosing/Coumadin coagulopathy with INR 3.4 improved INR is 2.0 History of CVA/TIA with impairment in memory Hypertension Hyperlipidemia Diabetes type 2 Left basilar atelectasis. Unlikely pneumonia. 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 Serial EKG and troponins negative. Cardiology is following.. 2-D echo cardiogram ordered. Currently rate is controlled. We will continue the home medications including Toprol-XL and digoxin.
[2019-03-05 17:00] LABS: Glucose,Whole Blood 121 mg/dL (75-99)
[2019-03-05] MEDS: WARFARIN 3 MG TAB PO SCH (17:08)
[2019-03-05 20:18] LABS: Glucose,Whole Blood 152 mg/dL (75-99)
[2019-03-05] MEDS: ATORVASTATIN 20 MG TAB PO SCH (21:27)
[2019-03-06] MEDS: HYDROcodone/APAP 10-325MG 1 EACH TAB PO PRN (05:19)
[2019-03-06] MEDS: DIGOXIN 125 MCG TAB PO SCH (05:20)
[2019-03-06 05:29] VITALS: RESP 18
[2019-03-06 06:25] LABS: Glucose,Whole Blood 111 mg/dL (75-99)
[2019-03-06] MEDS: metFORMIN 500 MG TAB PO SCH (07:39)
[2019-03-06] MEDS: FUROSEMIDE 20 MG TAB PO SCH (09:39)
[2019-03-06] MEDS: METOPROLOL SUCCINATE (ER) 50 MG TAB.ER.24H PO SCH (09:39)
[2019-03-06] MEDS: FLUTICASONE 50MCG/SPRAY NASAL 16GM EA NOSTRIL SCH (09:42)
[2019-03-06 11:17] LABS: Glucose,Whole Blood 85 mg/dL (75-99)
[2019-03-06] MEDS: LISINOPRIL 2.5 MG TAB PO SCH (12:18)
--- NOTE | 2019-03-06 12:49 | P.DS ---
Providers Date of admission: 02/28/19 12:02 Attending physician: José Luis Rodriguez Consults: 02/28/19 12:03 Consult Physician Routine Consulting Provider: Trudi Felder Consult Reason/Comments: CP Do you want consulting provider notified?: Yes 03/03/19 07:00 Consult to Anesthesia Routine Consulting Provider: Anesthesia,Services Consult Reason/Comments: Pacemaker insertion Primary care physician: [facility] Hospital Course: 89-year-old male with a known history of approximately fibrillation on anticoagulation with Coumadin, history of CVA/TIA with memory impairment, hypertension, hyperlipidemia and history of coronary artery disease with stent placement about 10 years ago came to ER with the complaints of chest pain yesterday morning and woke up from sleep. Patient did have mid retrosternal stabbing chest pain with associated shortness of breath. Denied radiation. Patient felt nauseous. No vomiting. No headache or dizziness or lightheadedness. Patient felt sweaty. Patient says that his blood pressure was high at the time and is also elevated heart rate. EMS was called and was told that his heart rate went up to 224. Patient was brought to the hospital by EMS. Patient denied any fever or chills. No recent upper respiratory infection. No sick contacts at home. Patient says that his chest pain is similar to the pain when he had heart attack 10 years ago. Patient has not been taking his metoprolol dose for the past 3 days due to delay in prescription service. EKG showed normal sinus rhythm with right bundle-branch block and bursts of nonsustained atrial tachycardia. Chest x-ray showed left basilar atelectasis, pneumonia could be considered. Follow-up is recommended. INR 3.4, lactic acid 3.2 03/02/2019 Patient is currently sitting on the chair comfortably. No complaints of chest pain or shortness of breath. Apparently patient did have an episode of sharp chest pain left retrosternal when he had an episode of A. fib in the morning as noted by cardiology. Cardiology is recommending pacemaker placement. Otherwise patient denied any complaints of nausea vomiting or abdominal pain. No fever no chills. No cough or sputum production. 03/03/2019 Patient denied any complaints of chest pain or shortness of breath. Patient is scheduled for pacemaker placement today. Otherwise patient is being continued on beta blockers and digoxin. No nausea vomiting or abdominal pain. 2-D echocardiogram showed moderate aortic stenosis. Normal EF. 03/04/2019 Patient status post permanent pacemaker placement. Patient is otherwise asymptomatic except some soreness at the pacemaker insertion site. No commerce of chest pain or shortness of breath. No headache or dizziness or lightheadedness. Patient is being continued on metoprolol and digoxin. On Coum vida for anticoagulation. Anticipate discharge in next 24-48 hours once daily by cardiology. 03/05/2019 Patient heart rate is well controlled, INR is therapeutic, cardiology is recommending one more night and possibility of discharge tomorrow. Patient's heart rate is well controlled is being discharged today in stable medical condition to home PHYSICAL EXAMINATION: GENERAL: The patient is alert and oriented x3, not in any acute distress. Well developed, well nourished. HEENT: Pupils are round and equally reacting to light. EOMI. No scleral icterus. No conjunctival pallor. Normocephalic, atraumatic. No pharyngeal erythema. No thyromegaly. CARDIOVASCULAR: S1 and S2 present. No murmurs, rubs, or gallops. PULMONARY: Chest is clear to auscultation, no wheezing or crackles. ABDOMEN: Soft, nontender, nondistended, normoactive bowel sounds. No palpable organomegaly. MUSCULOSKELETAL: No joint swelling or deformity. EXTREMITIES: No cyanosis, clubbing, or pedal edema. NEUROLOGICAL: Gross neurological examination did not reveal any focal deficits. SKIN: No rashes. 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 Status post permanent pacemaker placement on 03/03/2019. Paroxysmal atrial fibrillation with RVR. Symptomatic. Presently sinus rhythm Chest pain. Ruled out acute coronary syndrome. History of coronary disease with stent placement 10 years ago Coumadin dosing/Coumadin coagulopathy with INR 3.4 improved INR is 2.0 History of CVA/TIA with impairment in memory Hypertension Hyperlipidemia Diabetes type 2 Left basilar atelectasis. Unlikely pneumonia. Patient Condition at Discharge: Stable Plan - Discharge Summary Discharge Rx Participant: No New Discharge Prescriptions: New Furosemide [Lasix] 20 mg PO DAILY #30 tab Metoprolol Succinate (ER) [Toprol XL] 50 mg PO BID #60 tab.er.24h Lisinopril [Zestril] 2.5 mg PO 1200 #30 tab Continue Simvastatin [Zocor] 20 mg PO HS@2100 metFORMIN HCL [Glucophage] 1,000 mg PO BID Digoxin [Digitek] 125 mcg PO DAILY@0600 glipiZIDE XL [Glucotrol XL] 2.5 mg PO DAILY@0700 Trospium Chloride [Sanctura] 60 mg PO DAILY@0600 Nitroglycerin Sl Tabs [Nitrostat] 0.4 mg SUBLINGUAL Q5M PRN PRN Reason: Chest Pain Warfarin Sodium 6 mg PO HS HYDROcodone/APAP 10-325MG [[place]ecate 10-325] 1 tab PO Q6HR PRN PRN Reason: Pain Changed Potassium Chloride ER [K-Dur 20] 10 meq PO DAILY #0 Discontinued Metoprolol Succinate (ER) [Toprol XL] 25 mg PO BID@0800,2100 Enalapril Maleate [Vasotec] 20 mg PO BID@0800,1700 hydrALAZINE HCL [Apresoline] 25 mg PO BID@0800,1700 Discharge Medication List Digoxin [Digitek] 125 mcg PO DAILY@0600 07/10/15 [History] Simvastatin [Zocor] 20 mg PO HS@2100 07/10/15 [History] metFORMIN HCL [Glucophage] 1,000 mg PO BID 07/10/15 [History] Trospium Chloride [Sanctura] 60 mg PO DAILY@0600 07/27/18 [History] glipiZIDE XL [Glucotrol XL] 2.5 mg PO DAILY@0700 07/27/18 [History] Nitroglycerin Sl Tabs [Nitrostat] 0.4 mg SUBLINGUAL Q5M PRN 09/10/18 [History] Warfarin Sodium 6 mg PO HS 09/10/18 [History] HYDROcodone/APAP 10-325MG [[place] 10-325] 1 tab PO Q6HR PRN 02/28/19 [History] Furosemide [Lasix] 20 mg PO DAILY #30 tab 03/06/19 [Rx] Lisinopril [Zestril] 2.5 mg PO 1200 #30 tab 03/06/19 [Rx] Metoprolol Succinate (ER) [Toprol XL] 50 mg PO BID #60 tab.er.24h 03/06/19 [Rx] Potassium Chloride ER [K-Dur 20] 10 meq PO DAILY #0 03/06/19 [Rx] Follow up Appointment(s)/Referral(s): Trudi Felder MD [STAFF PHYSICIAN] - 03/10/19 2:30 pm (Sunday -Device check and doctor visit) Mariola Butler MD [Primary Care Provider] - 03/12/19 2:30 pm (Sunday) Ambulatory/Diagnostic Orders: Basic Metabolic Panel [LAB.AMB] Time Frame: 3 Days, Location: None Selected Prothrombin Time INR [LAB.AMB] Time Frame: 3 Days, Location: None Selected Patient Instructions/Handouts: Pacemaker (DC)
[2019-03-06 13:00] VITALS: BP 133/69; PULSE 60; TEMP 97
--- NOTE | 2019-03-10 08:39 | CDI ---
Documentation Clarification Form Date: 03/10/2019 8:26:00 AM From: Lizandro Bowdenadvertising intern Phone: If Question,call jody Saleh at [phone] Admit Date: 02/28/2019 12:02:00 PM Patient Name: Dima Alvarez Jr Visit Number: [id number] Discharge Date: 03/06/2019 2:28:00 PM ATTENTION: The Clinical Documentation Specialists (CDI) and [facility] Coding Staff appreciate your assistance in clarifying documentation. Please respond to the clarification below the line at the bottom and electronically sign. The CDI & [facility] Coding staff will review the response and follow-up if needed. Please note: Queries are made part of the Legal Health Record. If you have any questions, please contact the author of this message via ITS. Dr. Naomie Thomas CHF is documented in the ED notes AND H&P,consult note in the past medical history section. 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 Systolic Heart Failure: Chronic Diastolic Heart Failure: Chronic Systolic & Diastolic Heart Failure: Chronic Unable to Determine Other, please specify Probably more appropriate question for cardiology MTDD
--- NOTE | 2019-03-14 16:51 | CDI ---
Documentation Clarification Form Date: 03/14/2019 8:26:00 AM From: Lizandro Bowden/Therese Pichardo- [address] Service Phone: If questions, call [phone] Bismarcionahed, Foundry Technician Admit Date: 02/28/2019 12:02:00 PM Patient Name: Dima Alvarez Jr Visit Number: [id number] Discharge Date: 03/06/2019 2:28:00 PM ATTENTION: The Clinical Documentation Specialists (CDI) and [facility] Coding Staff appreciate your assistance in clarifying documentation. Please respond to the clarification below the line at the bottom and electronically sign. The CDI & [facility] Coding staff will review the response and follow-up if needed. Please note: Queries are made part of the Legal Health Record. If you have any questions, please contact the author of this message via ITS. Dr. Luis Rodriguez CHF is documented in the ED notes, H&P, and Cardiology consult in the past medical history section. 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 Systolic Heart Failure: Chronic Diastolic Heart Failure: Chronic Systolic & Diastolic Heart Failure: Chronic Unable to Determine Other, please specify MTDD
== END 2019-03-06 14:28 | disposition home or self-care (01) | DRG 243 ==
LOC: EC 10:12 → 3SCARD 12:02
PROVIDERS: ADMIT Internal Medicine; ATTEND Internal Medicine
PROC: 0JH606Z Insertion of Pacemaker, Dual Chamber into Chest Subcutaneous Tissue and Fascia, Open Approach (ICD-10-PCS; principal; 2019-03-03 09:22)
PROC: 02H63JZ Insertion of Pacemaker Lead into Right Atrium, Percutaneous Approach (ICD-10-PCS; principal; 2019-03-03 09:22)
PROC: 02HK3JZ Insertion of Pacemaker Lead into Right Ventricle, Percutaneous Approach (ICD-10-PCS; principal; 2019-03-03 09:22)
DX: I49.5 Sick sinus syndrome (principal); I47.1 Supraventricular tachycardia; J98.11 Atelectasis; I48.0 Paroxysmal atrial fibrillation; E11.9 Type 2 diabetes mellitus without complications; I11.0 Hypertensive heart disease with heart failure; I50.9 Heart failure, unspecified; R42 Dizziness and giddiness; R79.1 Abnormal coagulation profile; I27.20 Pulmonary hypertension, unspecified; E78.5 Hyperlipidemia, unspecified; I07.1 Rheumatic tricuspid insufficiency; I45.19 Other right bundle-branch block; G14 Postpolio syndrome; I25.10 Atherosclerotic heart disease of native coronary artery without angina pectoris; R41.3 Other amnesia; H91.90 Unspecified hearing loss, unspecified ear; H54.62 Unqualified visual loss, left eye, normal vision right eye; I35.0 Nonrheumatic aortic (valve) stenosis; Z86.73 Personal history of transient ischemic attack (TIA), and cerebral infarction without residual deficits; Z86.718 Personal history of other venous thrombosis and embolism; Z79.01 Long term (current) use of anticoagulants; Z79.84 Long term (current) use of oral hypoglycemic drugs; Z95.5 Presence of coronary angioplasty implant and graft; Z91.011 Allergy to milk products; Z97.0 Presence of artificial eye; Z97.4 Presence of external hearing-aid; Z87.01 Personal history of pneumonia (recurrent); Z79.899 Other long term (current) drug therapy
CPT/HCPCS: 33208; 36415; 71045; 71046; 80048; 80053; 83036; 83605; 83690; 83735; 83880; 84443; 84484; 85025; 85610; 85730; 87040; 93005; 93306; 93308; 94760; 96365; 96372; 96375; 99285

== ENCOUNTER → 2019-03-12 | Outpatient (CLI) | payer MEDICARE ==
[2019-03-12 13:04] LABS: INR 2.2 (<1.2); Prothrombin Time 21.1 sec (9.0-12.0)
[2019-03-12 19:03] LABS: Anion Gap 9.6 mmol/L (4.00-12.00); Calcium 9.7 mg/dL (8.7-10.3); Carbon Dioxide 26.4 mmol/L (21.6-31.8); Potassium 4.5 mmol/L (3.5-5.5)
== END | disposition home or self-care (01) ==
LOC: LABWHC1 12:20
PROVIDERS: ATTEND Internal Medicine
DX: I49.5 Sick sinus syndrome (principal); I47.1 Supraventricular tachycardia; Z79.01 Long term (current) use of anticoagulants; Z79.899 Other long term (current) drug therapy
CPT/HCPCS: 36415; 80048; 85610

== ENCOUNTER 2019-05-26 01:29 | Inpatient (IN) | payer MEDICARE ==
[2019-05-26] MEDS ORDERED: SODIUM CHLORIDE 0.9% 1,000 ML IV STA (01:49)
[2019-05-26] MEDS ORDERED: ASPIRIN 81 MG PO STA (01:49)
[2019-05-26] MEDS: METOPROLOL TARTRATE 5 MG/5 ML VIAL IVP SCH ×15 (01:54→07:25)
[2019-05-26] MEDS ORDERED: ATENOLOL 25 MG TAB PO STA (02:16)
--- NOTE | 2019-05-26 02:32 | XR ---
EXAM: XR Chest, 2 Views CLINICAL HISTORY: Chest Pain TECHNIQUE: Frontal and lateral views of the chest. COMPARISON: 03-02-19 FINDINGS: Lungs: Unremarkable. No consolidation. Pleural space: Unremarkable. No pneumothorax. Heart: Cardiomegaly. Mediastinum: Unremarkable. Bones/joints: Osteopenia. Rotator cuff repair screw over lateral left humeral head. Tubes, lines and devices: Left pacer is again noted. IMPRESSION: No acute findings or substantial change.
[2019-05-26 02:39] LABS: HCT 49.6 % (39.0-53.0); HGB 16.2 gm/dL (13.0-17.5); MCH 30.9 pg (25.0-35.0); MCHC 32.6 g/dL (31.0-37.0); MCV 94.8 fL (80.0-100.0); Mean Platelet Volume 8.3; Platelet Count 182 k/uL (150-450); RBC 5.24 m/uL (4.30-5.90); RDW 14.4 % (11.5-15.5); WBC 17.7 k/uL (3.8-10.6)
[2019-05-26 02:48] LABS: INR 3.4 (<1.2); Partial Thromboplastin Time 33.6 sec (22.0-30.0); Prothrombin Time 32.7 sec (9.0-12.0)
[2019-05-26 03:19] LABS: ALT 41 U/L (21-72); AST 30 U/L (17-59); African American GFR (CKD) >90 (>60 ml/min/1.73 sqM); Alkaline Phosphatase 71 U/L (38-126); Anion Gap 11 mmol/L; Blood Urea Nitrogen 36 mg/dL (9-20); Calcium 9.5 mg/dL (8.4-10.2); Carbon Dioxide 22 mmol/L (22-30); Chloride 107 mmol/L (98-107); Digoxin 0.4 ng/mL; Glucose 354 mg/dL (74-99); Potassium 4.5 mmol/L (3.5-5.1); Sodium 140 mmol/L (137-145); Total Bilirubin 0.5 mg/dL (0.2-1.3); Total Protein 6.5 g/dL (6.3-8.2)
[2019-05-26 03:25] LABS: Eosinophils # (M) 0.35 k/uL (0-0.7); Monocytes # (M) 0.71 k/uL (0-1.0); Neutrophils # (M) 9.74 k/uL (1.3-7.7); Neutrophils % (M) 55 %; Nucleated Red Blood Cells 0 /100 WBC (0-0); Total Cells Counted 100
[2019-05-26 03:26] LABS: Anisocytosis (M) Present; Poikilocytosis (M) Present
[2019-05-26] MEDS ORDERED: NITROGLYCERIN SL TABS 0.4 MG TAB SUBLINGUAL PRN (03:59)
[2019-05-26] MEDS ORDERED: HYDROcodone/APAP 10-325MG 1 EACH TAB PO PRN (04:00)
--- NOTE | 2019-05-26 04:03 | ED ---
Chest Pain HPI - General Chief Complaint: Chest Pain Stated Complaint: Chest Pain Time Seen by Provider: 05/26/19 01:49 Source: patient Mode of arrival: wheelchair Limitations: no limitations - History of Present Illness Initial Comments: Dima is a pleasant 89-year-old gentleman with a history of A. fib who presents to the emergency department today for evaluation of chest pain. Patient's been under a lot of emotional stress recently, his squoct-[id number] recently and her memorial services tomorrow. Patient reports he just feels like his heart is broken over this. He reports that today began feeling like his heart was racing is having palpitations and chest pain which prompted his [id number] to bring him to the ER for further evaluation. Patient describes the pain as an aching that occurs worse when he feels his heart is racing, he feels somewhat short of breath he doesn't get diaphoretic or lightheaded. Patient was seen and evaluated last week by his primary physician for chronic back pain and was advised that he has chronic disc disease however is not a surgical candidate so he's been prescribed pain medications and he may be remaining with another physician to discuss injections. - Related Data Home Medications Medication Instructions Recorded Confirmed Digoxin [Digitek] 125 mcg PO DAILY@0600 07/10/15 02/28/19 Simvastatin [Zocor] 20 mg PO HS@2100 07/10/15 02/28/19 metFORMIN HCL [Glucophage] 1,000 mg PO BID 07/10/15 02/28/19 Trospium Chloride [Sanctura] 60 mg PO DAILY@0600 07/27/18 02/28/19 glipiZIDE XL [Glucotrol XL] 2.5 mg PO DAILY@0707/27/18 02/28/19 Nitroglycerin Sl Tabs [Nitrostat] 0.4 mg SUBLINGUAL Q5M PRN 09/10/18 02/28/19 Warfarin Sodium 6 mg PO HS 09/10/18 02/28/19 HYDROcodone/APAP 10-325MG [[place] 1 tab PO Q6HR PRN 02/28/19 02/28/19 10-325] Previous Rx's Medication Instructions Recorded Furosemide [Lasix] 20 mg PO DAILY #30 tab 03/06/19 Lisinopril [Zestril] 2.5 mg PO 1200 #30 tab 03/06/19 Metoprolol Succinate (ER) [Toprol 50 mg PO BID #60 tab.er.24h 03/06/19 XL] Potassium Chloride ER [K-Dur 20] 10 meq PO DAILY #0 03/06/19 Allergies Allergy/AdvReac Type Severity Reaction Status Date / Time Milk Containing Products AdvReac Mild Diarrhea Verified 03/01/19 10:03 Review of Systems ROS Statement: Those systems with pertinent positive or pertinent negative responses have been documented in the HPI. ROS Other: All systems not noted in ROS Statement are negative. EKG Findings - EKG Comments: EKG Findings:: EKG was obtained due to complaint of chest pain, EKG obtained at 1:45 AM, rate is 135, rhythm is A. fib with RVR, there is leftward axis, right bundle-branch block, QRS 148, QTC [address] elevations or depressions when compared to EKG obtained in December of this year there is no significant change in the morphology. Repeat EKG was obtained due to change in rate, EKG obtained at 147, repeat is 113, rhythm remains A. fib with RVR, there remains a left were deviation, right bundle branch block, QRS 144, QTC is [address] elevations or depressions no evidence of acute ischemia or infarction. 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 Patient is nontoxic and well- hydrated and is in no distress. HENT: Normocephalic, Atraumatic. EYES: PERRL, EOMI PULMONARY: Unlabored respirations. No audible rales rhonchi or wheezing was noted. CARDIOVASCULAR: Irregularly irregular, tachycardic ABDOMEN: Soft and nontender with normal bowel sounds. SKIN: Skin is clear with no lesions or rashes and otherwise unremarkable. : Deferred NEUROLOGIC: Patient is alert and oriented x3. Moving all extremities spontaneously MUSCULOSKELETAL: Normal extremities with adequate strength and full range of motion. No lower extremity swelling or edema. No calf tenderness. PSYCHIATRIC: Situational depression Limitations: no limitations Course Vital Signs 05/26/19 05/26/19 05/26/19 01:36 01:56 02:00 Temperature 98.4 F Pulse Rate 70 107 H 79 Respiratory 18 36 H 28 H Rate Blood Pressure 142/66 134/82 O2 Sat by Pulse 96 100 95 Oximetry 05/26/19 05/26/19 05/26/19 02:10 02:20 02:30 Temperature Pulse Rate 106 H 96 106 H Respiratory 22 27 H 25 H Rate Blood Pressure 131/95 133/59 133/59 O2 Sat by Pulse 96 97 96 Oximetry 05/26/19 05/26/19 05/26/19 02:40 02:50 03:00 Temperature Pulse Rate 104 H 112 H 120 H Respiratory 26 H 22 17 Rate Blood Pressure 125/72 84/73 84/73 O2 Sat by Pulse 97 97 96 Oximetry 05/26/19 05/26/19 05/26/19 03:10 03:20 03:30 Temperature Pulse Rate 115 H 105 H Respiratory 12 20 Rate Blood Pressure 108/74 126/86 126/86 O2 Sat by Pulse 97 96 Oximetry 05/26/19 05/26/19 05/26/19 03:40 03:50 04:00 Temperature Pulse Rate 115 H 120 H 113 H Respiratory 22 7 L 40 H Rate Blood Pressure 98/80 101/84 101/84 O2 Sat by Pulse Oximetry 05/26/19 05/26/19 05/26/19 04:10 04:20 04:30 Temperature Pulse Rate 105 H 117 H 128 H Respiratory 16 12 21 Rate Blood Pressure 108/68 114/66 114/66 O2 Sat by Pulse Oximetry 05/26/19 05/26/19 05/26/19 04:40 04:50 05:00 Temperature Pulse Rate 129 H 111 H 105 H Respiratory 21 20 23 Rate Blood Pressure 76/46 91/44 91/44 O2 Sat by Pulse Oximetry 05/26/19 05/26/19 05:10 05:20 Temperature Pulse Rate 89 111 H Respiratory 19 Rate Blood Pressure 109/76 114/60 O2 Sat by Pulse Oximetry Chest Pain MDM - [facility] Patient was seen and evaluated, history is obtained from patient and review of medical record Elderly male with history of A. fib, presenting with chest pain A. fib with RVR, patient is currently on beta blockers and to [place] at home, IV beta blockers were ordered for A. fib with RVR next and patient was given 3 doses of 5 mg of IV Lopressor, or remains stable heart rate did improve, by mouth beta blockers were ordered and cardiac workup was initiated Labs were relatively unremarkable initial troponin was not elevated however given the patient's age, history and risk factors he has high risk in addition he did present in A. fib with RVR. I do feel the patient will benefit from further evaluation by cardiology. Patient is in agreement with this. Admission orders were placed Disposition Clinical Impression: Atrial fibrillation with RVR, Chest pain Disposition: ADMITTED IP TO THIS HOSP Condition: Stable
[2019-05-26 06:12] LABS: Glucose,Whole Blood 155 mg/dL (75-99)
[2019-05-26] MEDS: DIGOXIN 125 MCG TAB PO SCH (06:34)
[2019-05-26] MEDS ORDERED: METOPROLOL SUCCINATE (ER) 50 MG TAB.ER.24H PO SCH (09:00)
[2019-05-26 11:22] LABS: Glucose,Whole Blood 126 mg/dL (75-99)
--- NOTE | 2019-05-26 11:30 | P.HPIM ---
History of Present Illness Chief Complaint: Chest pain This is a pleasant 89-year-old gentleman with a history of A. fib on Coumadin, comes in with complaints of chest pain. The patient says that he's been having diaphoresis for the past few days and he was having some emotional stress at home as his [id number] recently. He said that he slept that night and he woke up at 11 PM complaining of chest pain and left-sided the chest and he felt pain in his left arm. He was also diaphoretic and was short of breath. He does got concerned and came to the ER for further urology management. Patient discussed the pain as heaviness in the chest. He otherwise does not complain of any abdominal pain, no nausea and vomiting, or diarrhea constipation, no tingling numbness in the other extremities, no itch no rash. Next ER course-temperature 98.4 pulse 70 respiration 18 blood pressure 142/66. 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 History of Any Multi-Drug Resistant Organisms: None Reported Past Surgical History: Back Surgery, Hernia Repair, Pacemaker Past Anesthesia/Blood Transfusion Reactions: No Reported Reaction Type of Cardiac Device: Permanent Pacemaker Device Placement Date:: 02/2019 Past Psychological History: No Psychological Hx Reported Smoking Status: Never smoker Past Alcohol Use History: Rare Past Drug Use History: None Reported - Past Family History Father History Unknown: Yes Mother History Unknown: Yes Medications and Allergies Home Medications Medication Instructions Recorded Confirmed Type Digoxin [Digitek] 125 mcg PO DAILY 07/10/15 05/26/19 History Simvastatin [Zocor] 20 mg PO HS 07/10/15 05/26/19 History metFORMIN HCL [Glucophage] 1,000 mg PO BID 07/10/15 05/26/19 History Trospium Chloride [Sanctura] 60 mg PO DAILY 07/27/18 05/26/19 History glipiZIDE XL [Glucotrol XL] 2.5 mg PO DAILY 07/27/18 05/26/19 History Warfarin Sodium 6 mg PO HS 09/10/18 05/26/19 History HYDROcodone/APAP 10-325MG [[place] 1 tab PO Q6HR PRN 02/28/19 05/26/19 History 10-325] Metoprolol Succinate (ER) [Toprol 50 mg PO BID #60 tab.er.24h 03/06/19 05/26/19 Rx XL] Potassium Chloride ER [K-Dur 20] 10 meq PO DAILY #0 03/06/19 05/26/19 Rx Furosemide [Lasix] 40 mg PO DAILY 05/26/19 05/26/19 History Gabapentin [Neurontin] 100 mg PO TID 05/26/19 05/26/19 History Latanoprost/Pf [Latanoprost 0.005% 1 drop RIGHT EYE HS 05/26/19 05/26/19 History Eye Drop] Lisinopril [Zestril] 2.5 mg PO DAILY 05/26/19 05/26/19 History hydrALAZINE HCL 25 mg PO BID 05/26/19 05/26/19 History Allergies Allergy/AdvReac Type Severity Reaction Status Date / Time adhesive tape Allergy Rash/Hives Verified 05/26/19 07:46 Milk Containing Products AdvReac Mild Diarrhea Verified 05/26/19 07:44 Physical Exam Vitals: Vital Signs Temp Pulse Pulse Resp BP BP Pulse Ox 05/26/19 07:45 98.7 F 99 18 105/59 95 05/26/19 06:01 97.9 F 127 H 18 109/72 96 05/26/19 06:00 127 H 18 05/26/19 05:20 111 H 19 114/60 05/26/19 05:10 89 109/76 05/26/19 05:00 105 H 23 91/44 05/26/19 04:50 111 H 20 91/44 05/26/19 04:40 129 H 21 76/46 05/26/19 04:30 128 H 21 114/66 05/26/19 04:20 117 H 12 114/66 05/26/19 04:10 105 H 16 108/68 05/26/19 04:00 113 H 40 H 101/84 05/26/19 03:50 120 H 7 L 101/84 05/26/19 03:40 115 H 22 98/80 05/26/19 03:30 126/86 05/26/19 03:20 105 H 20 126/86 96 05/26/19 03:10 115 H 12 108/74 97 05/26/19 03:00 120 H 17 84/73 96 05/26/19 02:50 112 H 22 84/73 97 05/26/19 02:40 104 H 26 H 125/72 97 05/26/19 02:30 106 H 25 H 133/59 96 05/26/19 02:20 96 27 H 133/59 97 05/26/19 02:10 106 H 22 131/95 96 05/26/19 02:00 79 28 H 134/82 95 05/26/19 01:56 107 H 36 H 100 05/26/19 01:36 98.4 F 70 18 142/66 96 Intake and Output 05/25/19 05/26/19 05/26/19 22:59 06:59 14:59 Other: Voiding Method Urinal Urinal # Voids 1 # Bowel Movements 1 Weight 80.739 kg On exam, alert and oriented x3. HEENT: Conjunctivae normal. eyes normal. NECK: No JVD. No thyroid enlargement. No LNs CARDIOVASCULAR: 2 positive, patient has scar jenni due to recent pacemaker pl acement in the left side of the chest RESPIRATION: Breath sounds are equally both sides no rhonchi or rales and wheezing ABDOMEN: Soft, nontender . No guarding. no masses palpable. No ascites, No he patosplenomegaly.Bowel sounds heard. LEGS: No edema. no swelling NERVOUS SYSTEM: Cranial N 2-12 grossly normal. Moves all 4 limbs. No focal deficits. No sensory deficit. No signs of cerebellar dysfucntion. Skin: no ulcer no rash Results CBC & Chem 7: 05/26/19 01:54 05/26/19 01:54 Labs: Abnormal Lab Results - Last 24 Hours (Table) 05/26/19 05/26/19 05/26/19 Range/Units 01:54 01:54 01:54 WBC 17.7 H (3.8-10.6) k/uL Neutrophils # (Manual) 9.74 H (1.3-7.7) k/uL Lymphocytes # (Manual) 6.90 H (1.0-4.8) k/uL PT 32.7 H (9.0-12.0) sec INR 3.4 H (<1.2) APTT 33.6 H (22.0-30.0) sec BUN 36 H (9-20) mg/dL Glucose 354 H (74-99) mg/dL POC Glucose (mg/dL) (75-99) mg/dL Troponin I (0.000-0.034) ng/mL 05/26/19 05/26/19 05/26/19 Range/Units 06:10 08:56 11:21 WBC (3.8-10.6) k/uL Neutrophils # (Manual) (1.3-7.7) k/uL Lymphocytes # (Manual) (1.0-4.8) k/uL PT (9.0-12.0) sec INR (<1.2) APTT (22.0-30.0) sec BUN (9-20) mg/dL Glucose (74-99) mg/dL POC Glucose (mg/dL) 155 H 126 H (75-99) mg/dL Troponin I 0.158 H* (0.000-0.034) ng/mL Thrombosis Risk Factor Assmnt - Choose All That Apply Each Risk Factor Represents 3 Points: Age 75 years or older Thrombosis Risk Factor Assessment Total Risk Factor Score: 3 Thrombosis Risk Factor Assessment Level: Moderate Risk Assessment and Plan Assessment: - Chest pain need to rule out cardiac cause - History of A. fib on Coumadin - History of CVA/TIA - History of diabetes mellitus - History of hypertension - History of hyperlipidemia - CHF Plan - We'll admit the patient MedSurg with telemetry - We'll monitor troponin levels - Cardiology consulted - We'll resume the patient's home medications - Continue Coumadin - We'll order for lab work in the morning - Patient is in observation - Patient is full code Time with Patient: Greater than 30
[2019-05-26] MEDS ORDERED: LISINOPRIL 2.5 MG TAB PO SCH (12:00)
[2019-05-26] MEDS: LISINOPRIL 2.5 MG TAB PO SCH (12:00)
--- NOTE | 2019-05-26 12:06 | ECHOF ---
Referral Reason:CHF, RVR, Chest pain MEASUREMENTS -------- HEIGHT: 175.3 cm WEIGHT: 80.7 kg BP: 109/72 RVIDd: 3.3 cm (< 3.3) IVSd: 1.7 cm (0.6 - 1.1) LVIDd: 4.0 cm (3.9 - 5.3) LVPWd: 1.5 cm (0.6 - 1.1) IVSs: 2.1 cm LVIDs: 2.9 cm LVPWs: 2.0 cm LA Diam: 4.4 cm (2.7 - 3.8) LAESV Index (A-L): 41.69 ml/m Ao Diam: 3.9 cm (2.0 - 3.7) MV EXCURSION: 20.651 mm (> 18.000) MV EF SLOPE: 104 mm/s (70 - 150) EPSS: 0.4 cm AV maxP.13 mmHg AV meanP.54 mmHg RAP: 5.00 mmHg RVSP: 45.45 mmHg FINDINGS -------- Atrial fibrillation. Paced rhythm. This was a technically adequate study. The left ventricular size is normal. 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 Ove rall left ventricular systolic function is normal with, an EF between 65 - 70 %. The right ventricle is mildly enlarged. LA is severely dilated >40 ml/m2 The right atrium is normal in size. Interatrial and interventricular septum intact. There is mild aortic valve sclerosis. There is mild aortic stenosis present. Peak/mean gradient a cross the Aortic Valve is 29.13mmHg / 14.54mmHg. The mitral valve leaflets are mildly thickened. Mild mitral annular calcification present. Mild tricuspid regurgitation present. There is mild pulmonary hypertension. The right ventricular systolic pressure, as measured by Doppler, is 45.45mmHg. The pulmonic valve was not well visualized. The aortic root is dilated measuring 3.9cm. Normal inferior vena cava with normal inspiratory collapse consistent with estimated right atrial pre ssure of 5 mmHg. The inferior vena cava is mildly dilated. There is no pericardial effusion. CONCLUSIONS -------- 1. Atrial fibrillation. 2. Paced rhythm. 3. This was a technically adequate study. 4. The left ventricular size is normal. 5. 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 6. Overall left ventricular systolic function is normal with, an EF between 65 - 70 %. 7. The right ventricle is mildly enlarged. 8. LA is severely dilated >40 ml/m2 9. The right atrium is normal in size. 10. Interatrial and interventricular septum intact. 11. There is mild aortic valve sclerosis. 12. There is mild aortic stenosis present. 13. Peak/mean gradient across the Aortic Valve is 29.13mmHg / 14.54mmHg. 14. The mitral valve leaflets are mildly thickened. 15. Mild mitral annular calcification present. 16. Mild tricuspid regurgitation present. 17. There is mild pulmonary hypertension. 18. The right ventricular systolic pressure, as measured by Doppler, is 45.45mmHg. 19. The pulmonic valve was not well visualized. 20. The aortic root is dilated measuring 3.9cm. 21. Normal inferior vena cava with normal inspiratory collapse consistent with estimated right atrial pressure of 5 mmHg. 22. The inferior vena cava is mildly dilated. 23. There is no pericardial effusion. CLAIMS TECHNICIAN: bAbi Trejo RDCS
[2019-05-26] MEDS: GABAPENTIN 100 MG CAP PO SCH ×2 (16:39→21:08)
[2019-05-26 16:43] LABS: Glucose,Whole Blood 129 mg/dL (75-99)
[2019-05-26] MEDS ORDERED: WARFARIN 0.5 MG TAB PO ONE (18:00)
--- NOTE | 2019-05-26 18:03 | P.CRDCN ---
History of Present Illness Consult date: 05/26/19 Reason for Consult (text): chest pain Chief complaint: chest pain History of present illness: HISTORY OF PRESENT ILLNESS AND PLAN: This is a [89]-year-old [male] with history of mild to moderate CAD, atrial fibrillation, pacer insertion 03/03/19, rotator cuff surgery, hernia repair, significant back pain, osteopenia, CVA/TIA, diabetes mellitus, hypertension, high cholesterol, CHF and pneumonia. Patient presents in the emergency department with complaints of [chest pain and palpitations. Patient states he has been under significant emotional stress due to his [id number] passing away. Memorial service to be held today 05/26/2019 at 11 AM. Pt currently laying in bed with no acute distress. No current c\o of chest pain, chest pressure, SOB or palpitations. Pt follows with Dr. Rodriguez in the office. Pt states during chest pain episode it felt like a mid-sternal sharp, stabbing pain 10/10. States he was frothing at the mouth as well as sweating. Troponin levels elevated mildly. Pt controlled atrial fibrillation, takes coumadin for anticoagulation. INR 3.4. Follows with Dr. Rodriguez in an office. Pt a never smoker]. SIGNIFICANT PAST MEDICAL HISTORY: [Mild to moderate CAD, Atrial fibrillation, pacer insertion 03/03/19, rotator cuff surgery, hernia repair, back pain, osteopenia, CVA/TIA, diabetes mellitus, hypertension, high cholesterol, CHF and pneumonia.] PAST SURGICAL HISTORY: See list. EKG shows [atrial fibrillation], heart rate [100] bpm. Troponins positive x [2]. 0.027, 0.158 SIGNIFICANT LABORATORY VALUES: [INR 3.4. WBC 17.7. CBC WNL. BMP WNL. BURM 36 CR 0.77. Glucose 354. Digoxin level 0.4]. Chest x-ray [WNL]. Most recent echo dated 03/11/19 = indicates [EF 55-60%, Moderate LVH. Moderate AV stenosis. RV enlargement. Mild MR. Mild pulmonary HTN]. Most recent cardiac cath (2011) shows WNL EF, Mild to moderate CAD. REVIEW OF SYSTEMS: CONSTITUTIONAL: [Denies fever. Denies chills.] EYES: Denies blurred vision. [Denies blurred vision or vision changes. Denies eye pain.] EARS, NOSE, MOUTH & THROAT: [Denies headache. Denies sore throat. Denies ear pain Denies hemoptysis.] CARDIOVASCULAR: [C/o prior chest pain. C/o prior shortness of breath. Denies orthopnea. Denies PND. C/o prior palpitations. C\o prior diaphoresis.] RESPIRATORY: [Denies cough. C/o prior shortness of breath. ] GASTROINTESTINAL: [Denies abdominal pain or distention. Denies diarrhea. Denies constipation. Denies nausea. Denies vomiting.] MUSCULOSKELETAL: [Denies myalgias. C/o back pain.] INTEGUMENTARY: [Denies pruitis. Denies rash.] ENDOCRINE: [Denies fatigue. Denies weight change. Denies polydipsia. Denies polyurina Denies heat/cold intolerance.] GENITOURINARY:[ Denies burning, hematuria or urgency with micturation.] HEMATOLOGIC: [Denies history of anemia. Denies bleeding.] NEUROLOGIC: [Denies numbness. Denies tingling. Denies weakness.] PSYCHIATRIC: [Denies anxiety. Denies depression.] PHYSICAL EXAM: VITAL SIGNS: WNL. GENERAL: Well developed, in no acute distress. HEENT: Head is atraumatic, normocephalic. Pupils are equal, round. Extra ocular movements intact. Mucous membranes moist. Neck supple. No JVD. No carotid bruit. No thyromegaly. LUNGS: Clear to auscultation no wheezes, rales or rhonchi. No chest wall tenderness on palpation or with deep breathing. HEART: Irregular rhythm with controlled rate, no rubs or gallops. S1 and S2 heard. II/ systolic murmur at the base. ABDOMEN: Abdominal exam, WNL. Bowel sounds x4 quads. Soft, non-tender, without masses, organomegaly, or abdominal aorta enlargement. EXTREMITIES/VASCULAR: Extremities have easily palpable radial, femoral, dorsalis pedis and posterior tibial pulses. No cyanosis, calf tenderness. No BLE edema. NEUROLOGIC: Patient is awake, alert and oriented x3. No focal neurologic abnormalities. FINAL IMPRESSION: 1. [NSTEMI]. 2. [Atrial fibrillation, controlled]. 3. [Pacemaker - current]. 4. [Hypertension]. 5. [Chest pain]. 6. CAD mild to moderate PLAN: [NSTEMI. Cannot exclude CAD. Start metoprolol 50 mg 3 times daily. Pt to echocardiogram. Continue home medication. Patient currently doing well with no complaints of chest pain. Consider discharge tomorrow. Thank you kindly for this consult. ] Nurse Practitioner note has been reviewed by the Physician. Signing provider agrees with the documented findings, assessment and plan of care. 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 History of Any Multi-Drug Resistant Organisms: None Reported Past Surgical History: Back Surgery, Hernia Repair, Pacemaker Past Anesthesia/Blood Transfusion Reactions: No Reported Reaction Type of Cardiac Device: Permanent Pacemaker Device Placement Date:: 02/2019 Past Psychological History: No Psychological Hx Reported Smoking Status: Never smoker Past Alcohol Use History: Rare Past Drug Use History: None Reported - Past Family History Father History Unknown: Yes Mother History Unknown: Yes Medications and Allergies Home Medications Medication Instructions Recorded Confirmed Type Digoxin [Digitek] 125 mcg PO DAILY 07/10/15 05/26/19 History Simvastatin [Zocor] 20 mg PO HS 07/10/15 05/26/19 History metFORMIN HCL [Glucophage] 1,000 mg PO BID 07/10/15 05/26/19 History glipiZIDE XL [Glucotrol XL] 2.5 mg PO DAILY 07/27/18 05/26/19 History Warfarin Sodium 6 mg PO HS 09/10/18 05/26/19 History HYDROcodone/APAP 10-325MG [[place] 1 tab PO Q6HR PRN 02/28/19 05/26/19 History 10-325] Metoprolol Succinate (ER) [Toprol 50 mg PO BID #60 tab.er.24h 03/06/19 05/26/19 Rx XL] Potassium Chloride ER [K-Dur 20] 10 meq PO DAILY #0 03/06/19 05/26/19 Rx Furosemide [Lasix] 40 mg PO DAILY 05/26/19 05/26/19 History Gabapentin [Neurontin] 100 mg PO TID 05/26/19 05/26/19 History Latanoprost/Pf [Latanoprost 0.005% 1 drop RIGHT EYE HS 05/26/19 05/26/19 History Eye Drop] Lisinopril [Zestril] 2.5 mg PO DAILY 05/26/19 05/26/19 History Trospium Chloride [Sanctura XR] 60 mg PO DAILY 05/26/19 05/26/19 History hydrALAZINE HCL 25 mg PO BID 05/26/19 05/26/19 History Allergies Allergy/AdvReac Type Severity Reaction Status Date / Time adhesive tape Allergy Rash/Hives Verified 05/26/19 07:46 Milk Containing Products AdvReac Mild Diarrhea Verified 05/26/19 07:44 Physical Exam Vitals: Vital Signs Temp Pulse Pulse Resp BP BP Pulse Ox 05/26/19 12:00 97.9 F 65 18 118/82 97 05/26/19 07:45 98.7 F 99 18 105/59 95 05/26/19 06:01 97.9 F 127 H 18 109/72 96 05/26/19 06:00 127 H 18 05/26/19 05:20 111 H 19 114/60 05/26/19 05:10 89 109/76 05/26/19 05:00 105 H 23 91/44 05/26/19 04:50 111 H 20 91/44 05/26/19 04:40 129 H 21 76/46 05/26/19 04:30 128 H 21 114/66 05/26/19 04:20 117 H 12 114/66 05/26/19 04:10 105 H 16 108/68 05/26/19 04:00 113 H 40 H 101/84 05/26/19 03:50 120 H 7 L 101/84 05/26/19 03:40 115 H 22 98/80 05/26/19 03:30 126/86 05/26/19 03:20 105 H 20 126/86 96 05/26/19 03:10 115 H 12 108/74 97 05/26/19 03:00 120 H 17 84/73 96 05/26/19 02:50 112 H 22 84/73 97 05/26/19 02:40 104 H 26 H 125/72 97 05/26/19 02:30 106 H 25 H 133/59 96 05/26/19 02:20 96 27 H 133/59 97 05/26/19 02:10 106 H 22 131/95 96 05/26/19 02:00 79 28 H 134/82 95 05/26/19 01:56 107 H 36 H 100 05/26/19 01:36 98.4 F 70 18 142/66 96 Intake and Output 05/25/19 05/26/19 05/26/19 22:59 06:59 14:59 Output Total 400 Balance -400 Output: Urine 400 Other: Voiding Method Urinal Urinal # Voids 1 # Bowel Movements 1 Weight 80.739 kg Results 05/26/19 01:54 05/26/19 01:54 Cardiac Enzymes 05/26/19 05/26/19 05/26/19 Range/Units 01:54 01:54 08:56 AST 30 (17-59) U/L Troponin I 0.027 0.158 H* (0.000-0.034) ng/mL Coagulation 05/26/19 Range/Units 01:54 PT 32.7 H (9.0-12.0) sec APTT 33.6 H (22.0-30.0) sec CBC 05/26/19 Range/Units 01:54 WBC 17.7 H (3.8-10.6) k/uL RBC 5.24 (4.30-5.90) m/uL Hgb 16.2 (13.0-17.5) gm/dL Hct 49.6 (39.0-53.0) % Plt Count 182 (150-450) k/uL Comprehensive Metabolic Panel 05/26/19 Range/Units 01:54 Sodium 140 (137-145) mmol/L Potassium 4.5 (3.5-5.1) mmol/L Chloride 107 (98-107) mmol/L Carbon Dioxide 22 (22-30) mmol/L BUN 36 H (9-20) mg/dL Creatinine 0.77 (0.66-1.25) mg/dL Glucose 354 H (74-99) mg/dL Calcium 9.5 (8.4-10.2) mg/dL AST 30 (17-59) U/L ALT 41 (21-72) U/L Alkaline Phosphatase 71 (38-126) U/L Total Protein 6.5 (6.3-8.2) g/dL Albumin 4.0 (3.5-5.0) g/dL Current Medications Generic Name Dose Route Start Last Admin Trade Name Freq PRN Reason Stop Dose Admin Hydrocodone Bitart/Acetaminophen 1 each 05/26/19 04:00 [place] 10 PO Q6HR PRN Pain Aspirin 325 mg 05/27/19 09:00 Aspirin PO DAILY [facility] Atorvastatin Calcium 10 mg 05/26/19 21:00 Lipitor PO HS [facility] Digoxin 125 mcg 05/26/19 06:00 05/26/19 06:34 Lanoxin PO 125 mcg DAILY@0600 [facility] Administration Furosemide 40 mg 05/27/19 09:00 Lasix PO DAILY [facility] Gabapentin 100 mg 05/26/19 16:00 Neurontin PO TID [facility] Glipizide 2.5 mg 05/27/19 09:00 Glucotrol PO DAILY [facility] Hydralazine HCl 25 mg 05/26/19 21:00 Apresoline PO BID [facility] Latanoprost 1 drops 05/26/19 21:00 Xalatan 0.005% RIGHT EYE HS [facility] Lisinopril 2.5 mg 05/26/19 11:45 05/26/19 12:00 Zestril PO 2.5 mg DAILY [facility] Administration Metformin HCl 1,000 mg 05/26/19 21:00 Glucophage PO BID [facility] Metoprolol Succinate 50 mg 05/26/19 09:00 05/26/19 08:41 Toprol Xl PO 50 mg BID [facility] Administration Miscellaneous Information 1 each 05/26/19 11:32 Coumadin Per Pharmacy MISCELLANE DIRECTED PRN Per Protocol Nitroglycerin 0.4 mg 05/26/19 03:59 Nitrostat SUBLINGUAL Q5M PRN Chest Pain Trospium 20 mg 05/26/19 21:00 Sanctura PO BID [facility] Warfarin Sodium 0 mg 05/26/19 18:00 Coumadin PO 05/26/19 18:01 ONCE@1800 ONE Intake and Output 05/25/19 05/26/19 05/26/19 22:59 06:59 14:59 Output Total 400 Balance -400 Output: Urine 400 Other: Voiding Method Urinal Urinal # Voids 1 # Bowel Movements 1 Weight 80.739 kg 05/26/19 01:54 05/26/19 01:54
[2019-05-26 20:34] LABS: Glucose,Whole Blood 157 mg/dL (75-99)
[2019-05-26] MEDS ORDERED: LATANOPROST 0.005% OPHTH DROPS 2.5 ML BTL RIGHT EYE SCH (21:00)
[2019-05-26] MEDS ORDERED: ATORVASTATIN 10 MG TAB PO SCH (21:00)
[2019-05-26] MEDS: hydrALAZINE HCL 25 MG TAB PO SCH (21:08)
[2019-05-26] MEDS: TROSPIUM CHLORIDE 20 MG TABLET PO SCH (21:08)
[2019-05-26] MEDS: METOPROLOL SUCCINATE (ER) 50 MG TAB.ER.24H PO SCH (21:08)
[2019-05-26] MEDS: metFORMIN 500 MG TAB PO SCH (21:08)
[2019-05-27] MEDS: DIGOXIN 125 MCG TAB PO SCH (05:13)
[2019-05-27 06:07] LABS: Glucose,Whole Blood 129 mg/dL (75-99)
[2019-05-27] MEDS: METOPROLOL TARTRATE 5 MG/5 ML VIAL IVP SCH ×10 (06:44→06:53)
[2019-05-27 07:25] LABS: INR 3.7 (<1.2); Prothrombin Time 35.2 sec (9.0-12.0)
[2019-05-27 07:43] LABS: Cholesterol 142 mg/dL (<200); HDL Cholesterol 46 mg/dL (40-60); LDL Cholesterol,Calculated 72 mg/dL (0-99); Triglycerides 120 mg/dL (<150)
[2019-05-27] MEDS: METOPROLOL SUCCINATE (ER) 50 MG TAB.ER.24H PO SCH ×2 (08:42→15:11)
[2019-05-27] MEDS: GABAPENTIN 100 MG CAP PO SCH ×2 (08:42→15:11)
[2019-05-27] MEDS: metFORMIN 500 MG TAB PO SCH (08:43)
[2019-05-27] MEDS: hydrALAZINE HCL 25 MG TAB PO SCH (08:43)
[2019-05-27] MEDS: LISINOPRIL 2.5 MG TAB PO SCH (08:43)
[2019-05-27] MEDS: TROSPIUM CHLORIDE 20 MG TABLET PO SCH (08:43)
[2019-05-27] MEDS ORDERED: FUROSEMIDE 40 MG TAB PO SCH (09:00)
[2019-05-27] MEDS ORDERED: ASPIRIN 325 MG TAB PO SCH (09:00)
[2019-05-27 11:15] LABS: Anisocytosis Slight; Basophils # (A) 0.1 k/uL (0-0.2); Basophils % (A) 1 %; Eosinophils # (A) 0.2 k/uL (0-0.7); Eosinophils % (A) 1 %; HCT 46.8 % (39.0-53.0); HGB 15.2 gm/dL (13.0-17.5); Lymphocytes # (A) 6.8 k/uL (1.0-4.8); Lymphocytes % (A) 44 %; MCH 30.8 pg (25.0-35.0); MCHC 32.5 g/dL (31.0-37.0); MCV 94.8 fL (80.0-100.0); Mean Platelet Volume 10.6; Monocytes # (A) 0.7 k/uL (0-1.0); Monocytes % (A) 4 %; Neutrophils # (A) 7.5 k/uL (1.3-7.7); Neutrophils % (A) 48 %; Platelet Count 134 k/uL (150-450); RBC 4.94 m/uL (4.30-5.90); RDW 16.6 % (11.5-15.5); WBC 15.5 k/uL (3.8-10.6)
[2019-05-27 11:21] LABS: ALT 42 U/L (21-72); AST 32 U/L (17-59); African American GFR (CKD) >90 (>60 ml/min/1.73 sqM); Albumin 3.5 g/dL (3.5-5.0); Alkaline Phosphatase 59 U/L (38-126); Anion Gap 10 mmol/L; Blood Urea Nitrogen 23 mg/dL (9-20); Calcium 8.9 mg/dL (8.4-10.2); Carbon Dioxide 19 mmol/L (22-30); Chloride 111 mmol/L (98-107); Glucose 120 mg/dL (74-99); Potassium 4.6 mmol/L (3.5-5.1); Sodium 140 mmol/L (137-145); Total Bilirubin 0.9 mg/dL (0.2-1.3); Total Protein 5.8 g/dL (6.3-8.2)
[2019-05-27 11:37] LABS: Poikilocytosis (M) Present
[2019-05-27 12:25] LABS: Glucose,Whole Blood 94 mg/dL (75-99)
[2019-05-27 13:32] VITALS: BP 127/62; PULSE 64; RESP 16; TEMP 98.2
--- NOTE | 2019-05-27 14:29 | CDI ---
Documentation Clarification Form Date: 05/27/2019 2:24:22 PM From: Thuy Ruiz CCS, CCDS Admit Date: 05/26/2019 3:59:00 AM Patient Name: Dima Alvarez Jr Visit Number: [id number] Discharge Date: ATTENTION: The Clinical Documentation Specialists (CDI) and [facility] Coding Staff appreciate your assistance in clarifying documentation. Please respond to the clarification below the line at the bottom and electronically sign. The CDI & [facility] Coding staff will review the response and follow-up if needed. Please note: Queries are made part of the Legal Health Record. If you have any questions, please contact the author of this message via ITS. Dr. Sarita Bowden: Atrial Fibrillation is documented in the ED note, the History & Physical & the cardiology consult. History/Risk Factors: Atrial fibrillation, Heart Failure, Hypertension, Hyperlipidemia, previous CVA & pneumonia. Clinical Indicators: Presented with palpitations, diagnosed with Atrial Fibrillation nos & NSTEMI by cardiology. EKG: R 100 Atrial fibrillation HR: 70 - 107 - 120 - 105 - 89 - 111 Treatment: Aspirin, IV fluid 100, Lanoxinn po, Metoprolol po, Coumadin po In your professional opinion, can you please clarify the type of Atrial Fibrillation, if known? Chronic/Permanent Paroxysmal Persistent Other, please specify Unable to determine (Last Revision: February 2018) MTDD
--- NOTE | 2019-05-27 14:50 | P.DS ---
Providers Date of admission: 05/26/19 03:59 Expected date of discharge: 05/27/19 Attending physician: Jatinder Clemente MD Consults: 05/26/19 03:59 Consult Physician Urgent Consulting Provider: [facility] Consult Reason/Comments: rvr, chest pain Do you want consulting provider notified?: Yes, Notify in am Primary care physician: Mariola Carrie [facility] Course: Discharge diagnosis - Chest pain need to rule out cardiac cause - Leukocytosis probably reactive. Patient has leukocytosis from before - History of A. fib on Coumadin - History of CVA/TIA - History of diabetes mellitus - History of hypertension - History of hyperlipidemia - CHF Hospital course This is a pleasant 89-year-old gentleman with a history of A. fib on Coumadin, comes in with complaints of chest pain. The patient says that he's been having diaphoresis for the past few days and he was having some emotional stress at home as his [id number] recently. He said that he slept that night and he woke up at 11 PM complaining of chest pain and left-sided the chest and he felt pain in his left arm. He was also diaphoretic and was short of breath. He does got concerned and came to the ER for further urology management. Patient discussed the pain as heaviness in the chest. He otherwise does not complain of any abdominal pain, no nausea and vomiting, or diarrhea constipation, no tin gling numbness in the other extremities, no itch no rash. Next ER course-temperature 98.4 pulse 70 respiration 18 blood pressure 142/66. Cardiology saw the patient. His medications were adjusted. The chest pain was thought probably because of the A. fib. He is already on Coumadin which is to be continued. On 05/27/2019 Patient complaining of no chest pain or racing heart, no cough no shortness of breath, no abdominal pain, no nausea and vomiting, or diarrhea constipation, no signs of infection. On exam, alert and oriented x3. HEENT: Conjunctivae normal. eyes normal. NECK: No JVD. No thyroid enlargement. No LNs CARDIOVASCULAR: S1-S2 positive RESPIRATION: Breath sounds diminished in the bases. No rhonchi or crackles. No bronchial breathing. ABDOMEN: Soft, nontender . No guarding. no masses palpable. No ascites, No hepatosplenomegaly.Bowel sounds heard. LEGS: No edema. no swelling NERVOUS SYSTEM: Cranial N 2-12 grossly normal. Moves all 4 limbs. No focal deficits. No sensory deficit. No signs of cerebellar dysfucntion. Skin: no ulcer no rash Patient was cleared by cardiology to be discharged His INR was 3.7 this morning. He is requested to hold off the Coumadin today and check INR tomorrow before resuming Coumadin repeat CBC in 2 days he is to follow with cardiology and PCP as per the dates discussed below in the discharge summary. Patient Condition at Discharge: Stable Plan - Discharge Summary New Discharge Prescriptions: New Metoprolol Succinate (ER) [Toprol XL] 50 mg PO TID #120 tab.er.24h Continue Simvastatin [Zocor] 20 mg PO HS metFORMIN HCL [Glucophage] 1,000 mg PO BID Digoxin [Digitek] 125 mcg PO DAILY glipiZIDE XL [Glucotrol XL] 2.5 mg PO DAILY Warfarin Sodium 6 mg PO HS HYDROcodone/APAP 10-325MG [Seco 10-325] 1 tab PO Q6HR PRN PRN Reason: Pain Potassium Chloride ER [K-Dur 20] 10 meq PO DAILY #0 Lisinopril [Zestril] 2.5 mg PO DAILY Latanoprost/Pf [Latanoprost 0.005% Eye Drop] 1 drop RIGHT EYE HS Furosemide [Lasix] 40 mg PO DAILY hydrALAZINE HCL 25 mg PO BID Gabapentin [Neurontin] 100 mg PO TID Trospium Chloride [Sanctura XR] 60 mg PO DAILY Discontinued Metoprolol Succinate (ER) [Toprol XL] 50 mg PO BID #60 tab.er.24h Discharge Medication List Digoxin [Digitek] 125 mcg PO DAILY 07/10/15 [History] Simvastatin [Zocor] 20 mg PO HS 07/10/15 [History] metFORMIN HCL [Glucophage] 1,000 mg PO BID 07/10/15 [History] glipiZIDE XL [Glucotrol XL] 2.5 mg PO DAILY 07/27/18 [History] Warfarin Sodium 6 mg PO HS 09/10/18 [History] HYDROcodone/APAP 10-325MG [Seco 10-325] 1 tab PO Q6HR PRN 02/28/19 [History] Potassium Chloride ER [K-Dur 20] 10 meq PO DAILY #0 03/06/19 [Rx] Furosemide [Lasix] 40 mg PO DAILY 05/26/19 [History] Gabapentin [Neurontin] 100 mg PO TID 05/26/19 [History] Latanoprost/Pf [Latanoprost 0.005% Eye Drop] 1 drop RIGHT EYE HS 05/26/19 [History] Lisinopril [Zestril] 2.5 mg PO DAILY 05/26/19 [History] Trospium Chloride [Sanctura XR] 60 mg PO DAILY 05/26/19 [History] hydrALAZINE HCL 25 mg PO BID 05/26/19 [History] Metoprolol Succinate (ER) [Toprol XL] 50 mg PO TID #120 tab.er.24h 05/27/19 [Rx] Follow up Appointment(s)/Referral(s): Luis Rodriguez MD [STAFF PHYSICIAN] - 2 Weeks (Office will call with follow up appointment. ) Mariola Butler MD [Primary Care Provider] - 05/28/19 3:00 pm Patient Instructions/Handouts: A-fib (Atrial Fibrillation) (DC), Heart Healthy Diet (DC)
--- NOTE | 2019-05-27 16:21 | PN ---
PROGRESS NOTE DATE OF SERVICE: Mr. Alvarez is a patient who sees Dr. Rodriguez. He came into the hospital with atypical chest pain and had borderline troponin elevation. I do not believe it is significant, and it happened in the setting of some shortness of breath and hypoxia. I do not believe we are dealing with acute myocardial injury. He has not had any further chest pain. He is comfortable. Echo revealed good systolic function. Vitals are stable. No JVD. S1, S2 heard normally. Short systolic murmur noted. Lungs reveal diminished air entry. Abdomen and lower extremity exam unchanged. Plan is to increase activity and discharge him today. He is going to see Dr. Rodriguez in one week and will have a pacemaker recheck at that time. MMODL / IJN: [id number] /
[2019-05-27] MEDS ORDERED: WARFARIN 0.5 MG TAB PO ONE (18:00)
== END 2019-05-27 16:09 | disposition home or self-care (01) | DRG 313 ==
LOC: EC 01:29 → 3SCARD 03:59
PROVIDERS: ADMIT Internal Medicine; ATTEND Internal Medicine
DX: R07.9 Chest pain, unspecified (principal); D72.829 Elevated white blood cell count, unspecified; E11.9 Type 2 diabetes mellitus without complications; E78.00 Pure hypercholesterolemia, unspecified; E78.5 Hyperlipidemia, unspecified; G14 Postpolio syndrome; G89.29 Other chronic pain; H54.62 Unqualified visual loss, left eye, normal vision right eye; H91.90 Unspecified hearing loss, unspecified ear; I11.0 Hypertensive heart disease with heart failure; I25.10 Atherosclerotic heart disease of native coronary artery without angina pectoris; I27.20 Pulmonary hypertension, unspecified; I48.91 Unspecified atrial fibrillation; I50.9 Heart failure, unspecified; M85.80 Other specified disorders of bone density and structure, unspecified site; Z79.01 Long term (current) use of anticoagulants; Z79.84 Long term (current) use of oral hypoglycemic drugs; Z79.899 Other long term (current) drug therapy; Z86.73 Personal history of transient ischemic attack (TIA), and cerebral infarction without residual deficits; Z97.4 Presence of external hearing-aid; M54.9 Dorsalgia, unspecified; Z87.01 Personal history of pneumonia (recurrent); R74.8 Abnormal levels of other serum enzymes; Z63.4 Disappearance and death of family member; Z91.011 Allergy to milk products
CPT/HCPCS: 36415; 71046; 80053; 80061; 80162; 83735; 83880; 84484; 85025; 85610; 85730; 93306; 96361; 96374; 99285

== ENCOUNTER → 2019-07-25 | Outpatient (CLI) | payer MEDICARE ==
--- NOTE | 2019-07-25 13:34 | FL ---
EXAMINATION TYPE: FL barium swallow DATE OF EXAM: 07/25/2019 COMPARISON: None HISTORY: Dysphagia choking painful swallowing left side of throat TECHNIQUE: Single contrast technique was utilized given the patient's physical condition and inabilit y to stand for current periods of time. Overhead radiographs and fluoroscopic spot imaging as well as real-time observation was performed. FINDINGS: Esophagus dilates to normal caliber and has normal contour of the gastroesophageal junction . The gastroesophageal junction opens to normal caliber. No reflux was evident. No significant presby esophagus was identified. Fluoroscopy time: 53 seconds. Images: 21 IMPRESSION: 1. Normal single contrast esophagram
== END | disposition home or self-care (01) ==
LOC: RADFLMAIN 07:41
PROVIDERS: ATTEND Otolaryngology
DX: R13.10 Dysphagia, unspecified (principal)
CPT/HCPCS: 74220

== ENCOUNTER 2019-08-04 10:42 | Emergency (ER) | payer MEDICARE ==
[2019-08-04 11:03] VITALS: RESP 18; TEMP 98
[2019-08-04] MEDS ORDERED: SODIUM CHLORIDE 0.9% 1,000 ML IV ONE (11:23)
--- NOTE | 2019-08-04 11:26 | ED ---
General Adult HPI - General Chief complaint: Extremity Injury, Lower Stated complaint: poss toe infection Time Seen by Provider: 08/04/19 11:09 Source: patient, RN notes reviewed, old records reviewed Mode of arrival: wheelchair Limitations: physical limitation - History of Present Illness Initial comments: Patient is an 89-year-old male who presents emergency department today with chief complaint of right lower extremity pain swelling and redness. Patient reports that last Sunday he was taking a taking his sock off, when his right great toenail bent backward. 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 RIVERA clipped the edge of the nail back. Patient reports that he had his last and on Sunday he reports he no some increased redness and swelling. He is on Coumadin. He does not remember the last time he said his lab values checked. Patient reports that the pain and redness seemed to have progressed up the leg over the weekend and felt that he was seen today. - Related Data Home Medications Medication Instructions Recorded Confirmed Simvastatin [Zocor] 20 mg PO HS 07/10/15 08/04/19 metFORMIN HCL [Glucophage] 1,000 mg PO BID 07/10/15 08/04/19 glipiZIDE XL [Glucotrol XL] 2.5 mg PO DAILY 07/27/18 08/04/19 Warfarin Sodium 6 mg PO SUTUTHFRSA 09/10/18 08/04/19 Furosemide [Lasix] 40 mg PO DAILY 05/26/19 08/04/19 Latanoprost/Pf [Latanoprost 0.005% 1 drop RIGHT EYE 05/26/19 08/04/19 Eye Drop] Trospium Chloride [Sanctura XR] 60 mg PO DAILY 05/26/19 08/04/19 Amiodarone [Cordarone] 100 mg PO DAILY 08/04/19 08/04/19 Hydrocodone/Acetaminophen 1 tab PO Q6H PRN 08/04/19 08/04/19 [Hydrocodone-Acetamin 7.5-300] Lisinopril [Zestril] 10 mg PO DAILY 08/04/19 08/04/19 Metoprolol Succinate (ER) [Toprol 50 mg PO BID 08/04/19 08/04/19 XL] Nitroglycerin Sl Tabs [Nitrostat] 0.4 mg SUBLINGUAL Q5M PRN 08/04/19 08/04/19 Warfarin Sodium 3 mg PO MOWE 08/04/19 08/04/19 Previous Rx's Medication Instructions Recorded Potassium Chloride ER [K-Dur 20] 10 meq PO DAILY #0 03/06/19 Cephalexin [Keflex] 500 mg PO Q8HR #21 cap 08/04/19 Allergies Allergy/AdvReac Type Severity Reaction Status Date / Time adhesive tape Allergy Rash/Hives Verified 08/04/19 11:28 Milk Containing Products AdvReac Mild Diarrhea Verified 08/04/19 11:28 Review of Systems ROS Statement: Those systems with pertinent positive or pertinent negative responses have been documented in the HPI. ROS Other: All systems not noted in ROS Statement are negative. 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 No significant distress. Limitations: physical limitation General appearance: alert, in no apparent distress Head exam: Present: atraumatic, normocephalic, normal inspection Eye exam: Present: normal appearance, PERRL, EOMI. Absent: scleral icterus, conjunctival injection, periorbital swelling ENT exam: Present: normal exam, mucous membranes moist Neck exam: Present: normal inspection. Absent: tenderness, meningismus, lymphadenopathy Respiratory exam: Present: normal lung sounds bilaterally. Absent: respiratory distress, wheezes, rales, rhonchi, stridor Cardiovascular Exam: Present: regular rate, normal rhythm, normal heart sounds. Absent: systolic murmur, diastolic murmur, rubs, gallop, clicks GI/Abdominal exam: Present: soft, normal bowel sounds. Absent: distended, tenderness, guarding, rebound, rigid Extremities exam: Present: normal inspection, full ROM, normal capillary refill. Absent: tenderness, pedal edema, joint swelling, calf tenderness Right Knee exam: Present: normal inspection, full ROM Lower Leg exam: Present: full ROM, swelling, erythema (Patient has swelling and erythema circumferentially over the lower leg.). Absent: normal inspection Ankle exam: Present: normal inspection, full ROM, swelling Foot/Toe exam: Present: swelling Neurovascular tendon exam: Present: pulse deficit (Patient has no pulse deficit after [place] posterior tibial bilaterally. This was auscultated with Doppler but unable to obtain Doppler pulses in bilateral feet. Patient reports that this is chronic. ). Absent: no vascular compromise Gait: observed and normal Back exam: Present: normal inspection Neurological exam: Present: alert, oriented X3, CN II-XII intact Psychiatric exam: Present: normal affect, normal mood Skin exam: Present: warm, dry, intact, normal color. Absent: rash Course Vital Signs 08/04/19 08/04/19 11:00 12:49 Temperature 98.0 F Pulse Rate 63 63 Respiratory 18 18 Rate Blood Pressure 146/78 169/97 O2 Sat by Pulse 98 100 Oximetry Medical Decision Making - Medical Decision Making A 9-year-old male presents rest today with right lower sternum any swelling and pain. Patient reports symptoms started to shortly after he had his right toenail clipped. At this time patient's toenail does not appear to be acutely infected but he does have surrounding erythema extend into the calf. He is on Coumadin however he did not know his last level. Ultrasound was completed negative for DVT. He does have peripheral tears he is unable to obtain dorsalis pedis and posterior tibial pulse bilaterally. Patient reports that this is chronic. At this time he is also mildly elevated leukocytosis of 12,000. Chem she panels are otherwise unremarkable. INR is 3.2. I discussed the Patient was started on IV Kefzol. Also examined the Patient with Dr. Mcfarlane. We can recommended treatment of outpatient antibiotics for lower external cellulitis. Discussed that this was to worsen he needed to return. Discussed proper follow- up with his primary care physician. All questions were answered. - Lab Data Result diagrams: 08/04/19 11:25 08/04/19 11:25 Lab Results 08/04/19 08/04/19 08/04/19 Range/Units 11:25 11:25 11:25 WBC 12.0 H (3.8-10.6) k/uL RBC 4.83 (4.30-5.90) m/uL Hgb 16.1 (13.0-17.5) gm/dL Hct 47.2 (39.0-53.0) % MCV 97.7 (80.0-100.0) fL MCH 33.3 (25.0-35.0) pg MCHC 34.1 (31.0-37.0) g/dL RDW 15.9 H (11.5-15.5) % Plt Count 175 (150-450) k/uL Neutrophils % (Manual) 46 % Lymphocytes % (Manual) 41 % Monocytes % (Manual) 8 % Eosinophils % (Manual) 5 % Neutrophils # (Manual) 5.52 (1.3-7.7) k/uL Lymphocytes # (Manual) 4.92 H (1.0-4.8) k/uL Monocytes # (Manual) 0.96 (0-1.0) k/uL Eosinophils # (Manual) 0.60 (0-0.7) k/uL Nucleated RBCs 0 (0-0) /100 WBC Manual Slide Review Performed Large Platelets Present PT 30.5 H (9.0-12.0) sec INR 3.2 H (<1.2) APTT 33.2 H (22.0-30.0) sec Sodium 141 (137-145) mmol/L Potassium 5.0 (3.5-5.1) mmol/L Chloride 102 (98-107) mmol/L Carbon Dioxide 30 (22-30) mmol/L Anion Gap 9 mmol/L BUN 28 H (9-20) mg/dL Creatinine 0.91 (0.66-1.25) mg/dL Est GFR (CKD-EPI)AfAm 87 (>60 ml/min/1.73 sqM) Est GFR (CKD-EPI)NonAf 76 (>60 ml/min/1.73 sqM) Glucose 98 (74-99) mg/dL Calcium 9.0 (8.4-10.2) mg/dL Total Bilirubin 0.6 (0.2-1.3) mg/dL AST 47 (17-59) U/L ALT 47 (21-72) U/L Alkaline Phosphatase 59 (38-126) U/L Total Protein 6.4 (6.3-8.2) g/dL Albumin 3.8 (3.5-5.0) g/dL - Radiology Data Radiology results: report reviewed Foot x-rays negative for fracture dislocation. Demineralization is present. Prominent vascular calcification is seen. Evidence of prior surgery on the right foot partially imaged. Spurring of the anterior superior inferior patella. Mild diffuse subcutaneous edema. No fracture. No cortical distraction or periosteal reaction is noted. Disposition Clinical Impression: Lower extremity cellulitis, Peripheral arterial disease Disposition: HOME SELF-CARE Condition: Good Instructions (If sedation given, give patient instructions): Cellulitis (ED) Additional Instructions: Please use medication as discussed. Please follow up with family doctor if symptoms have not improved over the next two days. Please return to the emergency room if your symptoms increase or worsen or for any other concerns. Prescriptions: Cephalexin [Keflex] 500 mg PO Q8HR #21 cap Is patient prescribed a controlled substance at d/c from ED?: No Referrals: Mariola Butler MD [Primary Care Provider] - 1-2 days Edgardo Coffman DO [STAFF PHYSICIAN] - 1-2 days Time of Disposition: 13:41
[2019-08-04] MEDS ORDERED: SODIUM CHLORIDE 0.9% 1,000 ML IV SCH (11:30)
[2019-08-04 11:42] LABS: HCT 47.2 % (39.0-53.0); HGB 16.1 gm/dL (13.0-17.5); MCH 33.3 pg (25.0-35.0); MCHC 34.1 g/dL (31.0-37.0); MCV 97.7 fL (80.0-100.0); Mean Platelet Volume 8.1; Platelet Count 175 k/uL (150-450); RBC 4.83 m/uL (4.30-5.90); RDW 15.9 % (11.5-15.5)
[2019-08-04 11:53] LABS: INR 3.2 (<1.2); Partial Thromboplastin Time 33.2 sec (22.0-30.0); Prothrombin Time 30.5 sec (9.0-12.0)
--- NOTE | 2019-08-04 12:01 | XR ---
EXAMINATION TYPE: XR tibia fibula RT DATE OF EXAM: 08/04/2019 CLINICAL HISTORY: Redness, swelling, hand pain TECHNIQUE: Two views of the right leg are obtained. COMPARISON: None. FINDINGS: Demineralization is present. Prominent vascular calcification is seen. There is evidence of prior surgery on the right foot partially imaged. There is spurring from the anterior superior and t he anterior-inferior patella. Mild diffuse subcutaneous edema. No acute fracture. No suspicious corti khalif destruction or periosteal reaction. IMPRESSION: As above.
[2019-08-04 12:06] LABS: Lymphocytes # (M) 4.92 k/uL (1.0-4.8); Monocytes # (M) 0.96 k/uL (0-1.0); Neutrophils # (M) 5.52 k/uL (1.3-7.7); Neutrophils % (M) 46 %; Nucleated Red Blood Cells 0 /100 WBC (0-0); Total Cells Counted 100
[2019-08-04 12:07] LABS: Large Platelets Present
--- NOTE | 2019-08-04 12:11 | XR ---
EXAMINATION TYPE: XR foot complete RT DATE OF EXAM: 08/04/2019 CLINICAL HISTORY: pain TECHNIQUE: Frontal, lateral and oblique images of the right foot are obtained. COMPARISON: None. FINDINGS: Multiple postoperative changes involving the great toe as well as the second and third toes . Postoperative changes of the midfoot noted as well. No acute fracture identified. No bony destructi ve process is seen. IMPRESSION: There is no acute fracture or dislocation. ICD 10 NO FRACTURE, INITIAL EVALUATION
[2019-08-04 12:19] LABS: Albumin 3.8 g/dL (3.5-5.0); Total Bilirubin 0.6 mg/dL (0.2-1.3); Total Protein 6.4 g/dL (6.3-8.2)
--- NOTE | 2019-08-04 12:55 | US ---
EXAMINATION TYPE: US venous doppler duplex LE RT DATE OF EXAM: 08/04/2019 12:40 PM COMPARISON: NONE CLINICAL HISTORY: Pain. toe infection, h/o polio in right leg, no h/o dvt, swollen right ankle SIDE PERFORMED: right TECHNIQUE: The lower extremity deep venous system is examined utilizing real time linear array sonog monica with graded compression, doppler sonography and color-flow sonography. VESSELS IMAGED: External Iliac Vein (EIV) Common Femoral Vein Deep Femoral Vein Greater Saphenous Vein * Femoral Vein Popliteal Vein Small Saphenous Vein * Proximal Calf Veins (* superficial vessels) Right Leg: Appears negative for DVT IMPRESSION: No evidence for DVT at this time.
[2019-08-04 14:11] VITALS: BP 185/92; PULSE 70
== END 2019-08-04 14:55 | disposition home or self-care (01) ==
LOC: EC 10:42
DX: L03.115 Cellulitis of right lower limb (principal); R22.41 Localized swelling, mass and lump, right lower limb; I73.9 Peripheral vascular disease, unspecified; D72.829 Elevated white blood cell count, unspecified; I48.91 Unspecified atrial fibrillation; I11.0 Hypertensive heart disease with heart failure; I50.9 Heart failure, unspecified; E11.9 Type 2 diabetes mellitus without complications; E78.5 Hyperlipidemia, unspecified; Z86.73 Personal history of transient ischemic attack (TIA), and cerebral infarction without residual deficits; Z95.0 Presence of cardiac pacemaker; Z79.84 Long term (current) use of oral hypoglycemic drugs; Z79.01 Long term (current) use of anticoagulants; Z79.899 Other long term (current) drug therapy; Z91.048 Other nonmedicinal substance allergy status; Z91.011 Allergy to milk products
CPT/HCPCS: 99284 ×2; 96365 ×2; 96361 ×3; 36415; 80053; 85025; 85610; 85730; 87040; 73590; 73630; 93971; J0690

== ENCOUNTER → 2020-04-12 | Outpatient (CLI) | payer MEDICARE ==
[2020-04-12 19:35] LABS: African American GFR (CKD) 97.7 (60.0-200.0); Albumin 4.1 g/dL (3.80-4.90); Albumin/Globulin Ratio 1.95 (1.60-3.17); Anion Gap 6.2 mmol/L (4.00-12.00); Calcium 9.3 mg/dL (8.7-10.3); Carbon Dioxide 32.8 mmol/L (21.6-31.8); Chol/HDL Ratio 2.67; Globulin 2.1 g/dL (1.6-3.3); LDL Cholesterol,Calculated 50.4 mg/dL (0.0-131.0); Non-African American GFR(CKD) 84.3 (60.0-200.0); Potassium 5.1 mmol/L (3.5-5.5); Total Bilirubin 0.6 mg/dL (0.3-1.2); Total Protein 6.2 g/dL (6.2-8.2); VLDL Calculation 21.6 mg/dL (5.00-40.00)
== END | disposition home or self-care (01) ==
LOC: LABWHC1 12:22
PROVIDERS: ATTEND Physician Assistant
DX: I48.0 Paroxysmal atrial fibrillation (principal); E78.5 Hyperlipidemia, unspecified
CPT/HCPCS: 36415; 80053; 80061; 84443

== ENCOUNTER → 2021-04-26 | Outpatient (CLI) | payer MEDICARE ==
[2021-04-26 13:58] LABS: HCT 41.5 % (39.0-53.0); HGB 13.5 gm/dL (13.0-17.5); MCH 31.7 pg (25.0-35.0); MCHC 32.4 g/dL (31.0-37.0); MCV 97.8 fL (80.0-100.0); Mean Platelet Volume 8.9; Platelet Count 153 k/uL (150-450); RBC 4.25 m/uL (4.30-5.90); RDW 14.4 % (11.5-15.5)
[2021-04-26 14:01] LABS: Potassium 4.3 mmol/L (3.5-5.1)
== END | disposition home or self-care (01) ==
LOC: LABWHC1 11:57
PROVIDERS: ATTEND Internal Medicine Interventional Cardiology
DX: Z01.812 Encounter for preprocedural laboratory examination (principal); I35.0 Nonrheumatic aortic (valve) stenosis
CPT/HCPCS: 80051; 82565; 84520; 85027

== ENCOUNTER 2021-04-27 09:30 | Day surgery (SDC) | payer MEDICARE ==
[~2021-04-27 09:30] MED LIST: ALPRAZolam 0.25 MG TAB PO PRN; ALPRAZolam 0.5 MG TAB PO PRN; ASPIRIN 325 MG TAB PO STA; ATORVASTATIN 80 MG TAB PO STA; HEPARIN SODIUM,PORCINE 10,000 UNIT in SODIUM CHLORIDE 0.9% 1,000 ML IRRIGATION PRN; HEPARIN SODIUM,PORCINE 2,500 UNIT in SODIUM CHLORIDE 0.9% 250 ML IRRIGATION PRN; NITROGLYCERIN SL TABS 0.4 MG TAB SUBLINGUAL PRN; SODIUM CHLORIDE 0.9% 1,000 ML in EMPTY BAG 1 BAG IV ONE
[2021-04-27] MEDS ORDERED: SODIUM CHLORIDE 0.9% 1,000 ML IV ONE (10:48)
[2021-04-27 11:08] LABS: Glucose,Whole Blood 84 mg/dL (75-99)
[2021-04-27 11:26] LABS: Basophils # (A) 0.1 k/uL (0-0.2); Basophils % (A) 1 %; Eosinophils # (A) 0.3 k/uL (0-0.7); Eosinophils % (A) 3 %; HCT 46.3 % (39.0-53.0); HGB 15.5 gm/dL (13.0-17.5); Lymphocytes # (A) 5.1 k/uL (1.0-4.8); Lymphocytes % (A) 45 %; MCH 32.5 pg (25.0-35.0); MCHC 33.4 g/dL (31.0-37.0); MCV 97.4 fL (80.0-100.0); Mean Platelet Volume 9.3; Monocytes # (A) 0.5 k/uL (0-1.0); Monocytes % (A) 4 %; Neutrophils # (A) 5.2 k/uL (1.3-7.7); Neutrophils % (A) 46 %; Platelet Count 155 k/uL (150-450); RBC 4.76 m/uL (4.30-5.90); RDW 13.9 % (11.5-15.5); WBC 11.3 k/uL (3.8-10.6)
[2021-04-27 11:31] LABS: African American GFR (CKD) >90 (>60 ml/min/1.73 sqM); Anion Gap 8 mmol/L; Blood Urea Nitrogen 23 mg/dL (9-20); Calcium 9.5 mg/dL (8.4-10.2); Carbon Dioxide 27 mmol/L (22-30); Chloride 105 mmol/L (98-107); Glucose 83 mg/dL (74-99); Non-African American GFR(CKD) 85 (>60 ml/min/1.73 sqM); Sodium 140 mmol/L (137-145)
[2021-04-27] MEDS: BENZOCAINE SPRAY 1 CAN MUCOUS MEM ONE ×2 (11:50→11:57)
[2021-04-27 11:52] LABS: Potassium 5.2 mmol/L (3.5-5.1)
[2021-04-27] MEDS ORDERED: IV FLUID CONTINUATION 1,000 ML IV ONE (11:58)
[2021-04-27] MEDS ORDERED: MIDAZOLAM 2 MG/2 ML VIAL IV ONE (12:01)
[2021-04-27] MEDS ORDERED: fentaNYL (PF) 50 MCG/ML 2 ML AMP IV ONE ×2 (12:02→13:26)
[2021-04-27] MEDS ORDERED: LIDOCAINE 1% INJ 10MG/ML (20 ML MDV) SQ ONE (12:43)
[2021-04-27] MEDS ORDERED: IOPAMIDOL-370 125ML BTL INJ ONE (13:26)
[2021-04-27] MEDS ORDERED: SODIUM CHLORIDE 0.9% 1,000 ML IV SCH (13:30)
[2021-04-27] MEDS ORDERED: RX INFO: IV CONTRAST WAS GIVEN 1 EACH MISC MISCELLANE PRN (13:30)
--- NOTE | 2021-04-27 14:50 | ECHOT ---
TRANSESOPHAGEAL ECHOCARDIOGRAM DATE OF SERVICE: April 27, 2021 PERFORMING PHYSICIAN: Jorden Thorpe MD. PROCEDURE PERFORMED: Transesophageal echocardiogram. INDICATION: Aortic stenosis. COMPLICATION: None. LEVEL OF SEDATION: Moderate with sedation length of 15 minutes. PROCEDURE DESCRIPTION: After obtaining informed consent, the patient was brought to the transesophageal echocardiogram suite. A pulse oximetry and heart rate monitors were attached the patient. Subsequently, the transesophageal echocardiogram was advanced through the bite guard to the mid esophageal where 2D echocardiogram images as well as color Doppler and pulse Doppler, and continuous-wave Doppler obtained. The patient was sedated using a total of 2 mg of Versed and 25 of fentanyl on divided doses. The procedure was completed without any complication. FINDINGS: The left ventricle appeared to be mildly dilated. The left ventricular systolic function appeared to be mildly impaired with EF around 45%. Right ventricle appeared to be also dilated. The left atrium appeared to be dilated. The left atrial appendage appeared to be intact. The interatrial septum appeared to be intact. The aortic valve appeared to be thickened and calcified and seems to be bicuspid with evidence of fusion of the right and left coronary cusp. The mitral valve seems to be thickened. There is mild to moderate MR. I attempted getting a gradient across aortic valve and we get a peak of 48 and mean of 27 mmHg. The tricuspid valve has mild to moderate TR. CONCLUSION: 1. Mildly impaired LV function with EF around 45%. 2. Dilated right ventricle with normal function. 3. Severe biatrial enlargement. 4. Intact interatrial septum. 5. Normal left atrial appendage. 6. Bicuspid aortic valve with fusion of the right and left coronary cusps and evidence of moderate aortic stenosis with a peak gradient of 48 and mean of 27 mmHg. 7. Thickened mitral valve leaflets with moderate MR. 8. Moderate tricuspid regurgitation. 9. No evidence of pericardial effusion. MMODL / IJN: [id number] /
--- NOTE | 2021-04-27 17:40 | CC ---
CARDIAC CATHETERIZATION REPORT DATE OF SERVICE: April 27. PERFORMING PHYSICIAN: Jorden Thorpe M.D. PROCEDURE PERFORMED: Selective right and left coronary angiogram. INDICATION: Severe aortic stenosis. COMPLICATION: None. LEVEL OF SEDATION: Moderate with sedation length of 44 minutes. PROCEDURE DESCRIPTION: After obtaining informed consent, the patient was brought to the cardiac slab installer. The right common femoral vein and right common femoral arteries were cannulated using micropuncture technique and a micropuncture wire passed easily. Then I placed an 8- Samoan sheath in the vein and 6-Samoan sheath in the artery. The initial plan was to perform a right heart catheterization, but that was not performed. I did selective right and left coronary angiogram using JR4 and JL4 catheters. After that, I attempted crossing the aortic valve using 6-Samoan pigtail catheter and that was unsuccessful and using an AL1 with a straight wire and also that was unsuccessful. After that, the procedure was completed without any complication. SELECTIVE CORONARY ANGIOGRAM: 1. The RCA is a large caliber vessel, it is a dominant vessel. The RCA has mild disease only. 2. The left main is angiographically normal, has mild disease distally. Bifurcates into LCX and LAD. 3. The LCX is a large caliber vessel, nondominant vessel. The LCX has mild to moderate diffuse disease and gives rise into a large OM branch which trifurcates into 3 separate branches. 4. The LAD is a large caliber vessel. The LAD has mild to moderate diffuse disease. It gives rise into first and second diagonal branches, both appeared to have mild disease only. 5. CONCLUSION: 1. Extremely calcified right and left coronary systems. 2. 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 POSTPROCEDURE MANAGEMENT: 1. Medical treatment. 2. Follow up with the patient. MMODL / IJN: [id number] /
[2021-04-27] MEDS ORDERED: HYDROcodone/APAP 7.5-325MG 1 EACH TAB PO PRN (19:27)
[2021-04-27] MEDS ORDERED: NITROGLYCERIN SL TABS 0.4 MG TAB SUBLINGUAL PRN (19:27)
[2021-04-27] MEDS ORDERED: FUROSEMIDE 40 MG TAB PO PRN (19:27)
[2021-04-27 20:58] LABS: Glucose,Whole Blood 112 mg/dL (75-99)
[2021-04-27] MEDS: metFORMIN 500 MG TAB PO SCH ×2 (20:58→21:01)
[2021-04-27] MEDS ORDERED: AMIODARONE 200 MG TAB PO SCH (21:00)
[2021-04-27] MEDS ORDERED: LATANOPROST 0.005% OPHTH DROPS 2.5 ML BTL RIGHT EYE SCH (21:00)
[2021-04-28 03:38] VITALS: TEMP 98
[2021-04-28 06:14] LABS: Glucose,Whole Blood 81 mg/dL (75-99)
[2021-04-28] MEDS ORDERED: TROSPIUM CHLORIDE 20 MG TABLET PO SCH (09:00)
[2021-04-28] MEDS ORDERED: APIXABAN 5 MG TAB PO SCH (09:00)
[2021-04-28] MEDS ORDERED: lisinopriL 10 MG TAB PO SCH (09:00)
[2021-04-28] MEDS ORDERED: METOPROLOL SUCCINATE (ER) 50 MG TAB.ER.24H PO SCH (09:00)
[2021-04-28] MEDS: metFORMIN 500 MG TAB PO SCH (09:28)
--- NOTE | 2021-04-28 09:50 | DS ---
DISCHARGE SUMMARY ADMISSION DATE: April 27, 2021. DISCHARGE DATE: April 28, 2021. BRIEF HISTORY: This is a very pleasant 89-year-old gentleman who underwent yesterday a transesophageal echocardiogram and heart catheterization. Patient was kept overnight just because we had some access issue and I was concerned about and about bleeding areas. The patient is going to be discharged home later on today to be seen in the office. MMODL / IJN: [id number] /
[2021-04-28 10:19] VITALS: BP 122/60; PULSE 61; RESP 16
[2021-04-28] MEDS ORDERED: ATORVASTATIN 10 MG TAB PO SCH (21:00)
== END 2021-04-28 10:56 | disposition home or self-care (01) ==
LOC: CATHCVL 09:30 → 3SCARD 16:40 → CATHCVL 04-28 10:56
PROVIDERS: ATTEND Internal Medicine Interventional Cardiology
DX: I25.10 Atherosclerotic heart disease of native coronary artery without angina pectoris (principal); I25.84 Coronary atherosclerosis due to calcified coronary lesion; I08.2 Rheumatic disorders of both aortic and tricuspid valves; I48.0 Paroxysmal atrial fibrillation; Q23.1 Congenital insufficiency of aortic valve; I51.7 Cardiomegaly; I10 Essential (primary) hypertension; E78.5 Hyperlipidemia, unspecified; E11.9 Type 2 diabetes mellitus without complications; Z82.49 Family history of ischemic heart disease and other diseases of the circulatory system; Z79.01 Long term (current) use of anticoagulants; Z79.84 Long term (current) use of oral hypoglycemic drugs; Z79.899 Other long term (current) drug therapy
CPT/HCPCS: 93312; 93320; 93325; 93454; 80048; 85025; 87635; C1769 ×3; C1894 ×3; C1751; J2250; J2001; J3010; Q9967

== ENCOUNTER → 2021-05-16 | Outpatient (CLI) | payer MEDICARE ==
[2021-05-16 14:49] LABS: Basophils # (A) 0.1 k/uL (0-0.2); Basophils % (A) 1 %; Eosinophils # (A) 0.3 k/uL (0-0.7); Eosinophils % (A) 3 %; HCT 40.6 % (39.0-53.0); HGB 14.1 gm/dL (13.0-17.5); Lymphocytes # (A) 4.4 k/uL (1.0-4.8); Lymphocytes % (A) 43 %; MCH 33.5 pg (25.0-35.0); MCHC 34.6 g/dL (31.0-37.0); MCV 96.9 fL (80.0-100.0); Mean Platelet Volume 8.3; Monocytes # (A) 0.4 k/uL (0-1.0); Monocytes % (A) 4 %; Neutrophils % (A) 48 %; Platelet Count 174 k/uL (150-450); RBC 4.19 m/uL (4.30-5.90); RDW 13.7 % (11.5-15.5); WBC 10.3 k/uL (3.8-10.6)
[2021-05-16 15:03] LABS: INR 1.1 (<1.2); Prothrombin Time 11.5 sec (9.0-12.0)
[2021-05-16 15:13] LABS: ALT 20 U/L (4-49); AST 26 U/L (17-59); African American GFR (CKD) 73 (>60 ml/min/1.73 sqM); Albumin 3.8 g/dL (3.5-5.0); Albumin/Globulin Ratio 1.7; Alkaline Phosphatase 56 U/L (38-126); Anion Gap 7 mmol/L; Bilirubin,Unconjugated 0.6 mg/dL (0.0-1.1); Blood Urea Nitrogen 32 mg/dL (9-20); Calcium 8.9 mg/dL (8.4-10.2); Carbon Dioxide 30 mmol/L (22-30); Chloride 102 mmol/L (98-107); Globulin 2.3 g/dL; Glucose 103 mg/dL (74-99); Magnesium 1.8 mg/dL (1.6-2.3); Non-African American GFR(CKD) 63 (>60 ml/min/1.73 sqM); Potassium 4.7 mmol/L (3.5-5.1); Sodium 139 mmol/L (137-145); Total Bilirubin 0.4 mg/dL (0.2-1.3); Total Protein 6.1 g/dL (6.3-8.2)
[2021-05-16 15:15] LABS: Appearance,Urine Clear (Clear); Bacteria,Urine Moderate /hpf; Bilirubin,Urine Negative (Negative); Blood,Urine Negative (Negative); Color,Urine Yellow; Glucose,Urine (UA) Negative (Negative); Hyaline Casts,Urine 1 /lpf (0-2); Ketones,Urine Negative (Negative); Leukocyte Esterase,Urine Moderate (Negative); Mucus,Urine Rare /hpf; Nitrite,Urine Positive (Negative); PH, Urine 5.5 (5.0-8.0); Protein,Urine Negative (Negative); RBC,Urine 2 /hpf (0-5); Specific Gravity,Urine 1.012 (1.001-1.035); Urobilinogen,Urine <2.0 mg/dL (<2.0); WBC,Urine 12 /hpf (0-5)
[2021-05-16 22:31] LABS: Hemoglobin A1C 5.2 % (4.0-6.0)
[2021-05-17 01:08] LABS: Cholesterol 120 mg/dL (0-200); LDL Cholesterol,Calculated 59.2 mg/dL (0.0-131.0)
== END | disposition home or self-care (01) ==
LOC: LABWHC1 13:55
PROVIDERS: ATTEND Thoracic Surgery (Cardiothoracic Vascular Surgery)
DX: Z01.812 Encounter for preprocedural laboratory examination (principal); N28.9 Disorder of kidney and ureter, unspecified; E78.5 Hyperlipidemia, unspecified; E07.9 Disorder of thyroid, unspecified; E87.8 Other disorders of electrolyte and fluid balance, not elsewhere classified; R58 Hemorrhage, not elsewhere classified; R35.0 Frequency of micturition; I35.0 Nonrheumatic aortic (valve) stenosis; E11.9 Type 2 diabetes mellitus without complications; Z79.899 Other long term (current) drug therapy
CPT/HCPCS: 36415; 80053; 80061; 81001; 82248; 83036; 83735; 83880; 84443; 85025; 85610; 85730; 87077; 87086; 87186

== ENCOUNTER → 2021-06-08 | Outpatient (CLI) | payer MEDICARE ==
[2021-06-08 09:30] LABS: Basophils # (A) 0.1 k/uL (0-0.2); Basophils % (A) 1 %; Eosinophils # (A) 0.3 k/uL (0-0.7); Eosinophils % (A) 3 %; HCT 42.2 % (39.0-53.0); HGB 13.9 gm/dL (13.0-17.5); Lymphocytes # (A) 4.2 k/uL (1.0-4.8); Lymphocytes % (A) 43 %; MCH 32.1 pg (25.0-35.0); MCV 97.3 fL (80.0-100.0); Mean Platelet Volume 8.7; Monocytes # (A) 0.3 k/uL (0-1.0); Monocytes % (A) 4 %; Neutrophils # (A) 4.5 k/uL (1.3-7.7); Neutrophils % (A) 46 %; Platelet Count 150 k/uL (150-450); RBC 4.34 m/uL (4.30-5.90); RDW 14.2 % (11.5-15.5); WBC 9.8 k/uL (3.8-10.6)
[2021-06-08 09:41] LABS: ALT 19 U/L (4-49); AST 27 U/L (17-59); African American GFR (CKD) >90 (>60 ml/min/1.73 sqM); Albumin 3.9 g/dL (3.5-5.0); Alkaline Phosphatase 57 U/L (38-126); Anion Gap 5 mmol/L; Appearance,Urine Clear (Clear); Bilirubin,Unconjugated 0.6 mg/dL (0.0-1.1); Bilirubin,Urine Negative (Negative); Blood Urea Nitrogen 25 mg/dL (9-20); Blood,Urine Negative (Negative); Calcium 9.3 mg/dL (8.4-10.2); Carbon Dioxide 30 mmol/L (22-30); Chloride 105 mmol/L (98-107); Color,Urine Yellow; Glucose 94 mg/dL (74-99); Glucose,Urine (UA) Negative (Negative); Ketones,Urine Negative (Negative); Leukocyte Esterase,Urine Negative (Negative); Magnesium 1.7 mg/dL (1.6-2.3); Nitrite,Urine Negative (Negative); Non-African American GFR(CKD) 80 (>60 ml/min/1.73 sqM); PH, Urine 5.5 (5.0-8.0); Potassium 4.4 mmol/L (3.5-5.1); Protein,Urine Negative (Negative); Sodium 140 mmol/L (137-145); Specific Gravity,Urine 1.012 (1.001-1.035); Total Bilirubin 0.6 mg/dL (0.2-1.3); Total Protein 6.2 g/dL (6.3-8.2); Urobilinogen,Urine <2.0 mg/dL (<2.0)
[2021-06-08 09:52] LABS: INR 1.1 (<1.2); Partial Thromboplastin Time 26.8 sec (22.0-30.0); Prothrombin Time 11.4 sec (9.0-12.0)
[2021-06-08 20:21] LABS: Chol/HDL Ratio 2.61; Cholesterol 115 mg/dL (0-200); LDL Cholesterol,Calculated 55.6 mg/dL (0.0-131.0)
== END | disposition home or self-care (01) ==
LOC: LABPAT 08:46
PROVIDERS: ATTEND Thoracic Surgery (Cardiothoracic Vascular Surgery)
DX: Z01.812 Encounter for preprocedural laboratory examination (principal); I35.0 Nonrheumatic aortic (valve) stenosis; E11.9 Type 2 diabetes mellitus without complications; N28.9 Disorder of kidney and ureter, unspecified; E78.5 Hyperlipidemia, unspecified; E87.8 Other disorders of electrolyte and fluid balance, not elsewhere classified; E07.9 Disorder of thyroid, unspecified; R35.0 Frequency of micturition; R58 Hemorrhage, not elsewhere classified; Z79.899 Other long term (current) drug therapy
CPT/HCPCS: 80053; 80061; 81003; 82248; 83036; 83735; 83880; 84443; 85025; 85610; 85730; 87086

== ENCOUNTER → 2021-06-09 | Outpatient (CLI) | payer MEDICARE ==
--- NOTE | 2021-06-09 11:12 | XR ---
EXAMINATION TYPE: XR chest 2V DATE OF EXAM: 06/09/2021 COMPARISON: 05/26/2019 INDICATION: Cough short of breath fatigue TECHNIQUE: Frontal and lateral views of the chest are obtained. FINDINGS: The heart size is normal. The pulmonary vasculature is normal. The lungs are clear. Blunting of the right costophrenic angle may be related to COPD. Pacemaker is p resent. IMPRESSION: 1. No acute pulmonary process.
--- NOTE | 2021-06-09 12:04 | US ---
EXAMINATION TYPE: US carotid duplex BILAT DATE OF EXAM: 06/09/2021 COMPARISON: US 2018 CLINICAL HISTORY: R55, I35.1. EXAM MEASUREMENTS: RIGHT: Peak Systolic Velocity (PSV) cm/sec ----- Right CCA: 41.7 ----- Right ICA: 63.8 ----- Right ECA: 48.9 ICA/CCA ratio: 1.5 RIGHT: End Diastole cm/sec ----- Right CCA: 11.8 ----- Right ICA: 18.5 ----- Right ECA: 0.0 LEFT: Peak Systolic Velocity (PSV) cm/sec ----- Left CCA: 51.6 ----- Left ICA: 54.3 ----- Left ECA: 44.2 ICA/CCA ratio: 1.1 LEFT: End Diastole cm/sec ----- Left CCA: 12.5 ----- Left ICA: 12.2 ----- Left ECA: 0.0 VERTEBRALS (direction of flow): Right Vertebral: Antegrade Left Vertebral: Antegrade Rhythm: Normal No significant stenosis. IMPRESSION: No sonographic evidence for hemodynamically significant stenosis of the bilateral carotid arteries. Criteria for Assigning % of Stenosis / Diameter reduction (Estimation based on the indirect measurements of the internal carotid artery velocities (ICA PSV). 1. Normal (no stenosis)=ICA PSV < 125 cm/s: ratio < 2.0: ICA EDV<40 cm/s. 2. Less than 50% stenosis=ICA PSV < 125 cm/s: ratio < 2.0: ICA EDV<40 cm/s. 3. 50 to 69% stenosis=ICA PSV of 125 to 230 cm/s: ration 2.0 ? 4.0: ICA EDV 40-100 cm/s. 4. Greater than 70% stenosis to near occlusion= ICA PSV > 230 cm/s: ratio > 4.0: ICA EDV > 100 cm/s. 5. Near occlusion= ICA PSV velocities may be low or undetectable: variable ratio and ICA EDV. 6. Total occlusion=unable to detect flow.
== END ==
LOC: CPPFTMAIN 08:35
PROVIDERS: ATTEND Thoracic Surgery (Cardiothoracic Vascular Surgery)
DX: I35.1 Nonrheumatic aortic (valve) insufficiency (principal); R55 Syncope and collapse; Z91.048 Other nonmedicinal substance allergy status; Z91.011 Allergy to milk products
CPT/HCPCS: 82565; 84520; 71046; 93880; 71275; 74174; 93005; 36415; Q9967

== ENCOUNTER 2021-06-22 06:04 | Inpatient (IN) | payer MEDICARE ==
[~2021-06-22 06:04] MED LIST changes: -ALPRAZolam 0.25 MG TAB PO PRN; -ALPRAZolam 0.5 MG TAB PO PRN; +ASPIRIN 325 MG TAB PO ONE; -ASPIRIN 325 MG TAB PO STA; +ATORVASTATIN 10 MG TAB PO ONE; -ATORVASTATIN 80 MG TAB PO STA; +CARDIOPLEGIC SOLN (K+ 16 MEQ/L 1,000 ML with SODIUM BICARB (1 MEQ/ML) 20 ML, LIDOCAINE ... PERFUSION PRN; +CLEVIDIPINE BUTYRATE 25 MG in EMPTY BAG 1 BAG IV PRN; +CLOPIDOGREL 75 MG TAB PO ONE; -HEPARIN SODIUM,PORCINE 10,000 UNIT in SODIUM CHLORIDE 0.9% 1,000 ML IRRIGATION PRN; -HEPARIN SODIUM,PORCINE 2,500 UNIT in SODIUM CHLORIDE 0.9% 250 ML IRRIGATION PRN; +INSULIN REGULAR 100 UNIT in SODIUM CHLORIDE 0.9% 100 ML IV PRN; +LACTATED RINGERS 1,000 ML IV SCH; +LIDOCAINE 1% (10MG/ML) FOR IV START INTRADERMA PRN; +METOPROLOL TARTRATE 25 MG TAB PO ONE; -NITROGLYCERIN SL TABS 0.4 MG TAB SUBLINGUAL PRN; +NITROGLYCERIN-D5W PMX 25 MG/250 ML BTL IV PRN; +ONDANSETRON 4 MG/2 ML VIAL IVP ONE; +PROTAMINE SULFATE 250 MG in EMPTY BAG 1 BAG IV PRN; -SODIUM CHLORIDE 0.9% 1,000 ML in EMPTY BAG 1 BAG IV ONE; +SODIUM CHLORIDE 0.9% 500 ML 500 ML INTRAARTER ONE; +SODIUM CHLORIDE 0.9% 500 ML 500 ML IV ONE; +TRANEXAMIC ACID 2,000 MG in SODIUM CHLORIDE 0.9% 80 ML IV PRN
[2021-06-22 06:43] LABS: Glucose,Whole Blood 88 mg/dL (75-99)
[2021-06-22 06:49] LABS: HCT 45.7 % (39.0-53.0); MCH 32.2 pg (25.0-35.0); MCHC 32.8 g/dL (31.0-37.0); MCV 98.4 fL (80.0-100.0); Mean Platelet Volume 8.6; Platelet Count 193 k/uL (150-450); RBC 4.65 m/uL (4.30-5.90); RDW 13.5 % (11.5-15.5); WBC 12.2 k/uL (3.8-10.6)
[2021-06-22] MEDS ORDERED: HYDROmorphone 0.5 MG/0.5 ML SYRINGE IVP PRN (07:00)
[2021-06-22] MEDS ORDERED: ONDANSETRON 4 MG/2 ML VIAL IVP PRN ×2 (07:00→10:14)
[2021-06-22] MEDS ORDERED: PROTAMINE SULFATE 10 MG/ML 5 ML VIAL IV ONE (07:52)
[2021-06-22] MEDS ORDERED: NEOSTIGMINE 1 MG/ML 10 ML VIAL ONE (07:52)
[2021-06-22] MEDS ORDERED: ROCURONIUM 10 MG/ML (5 ML VIAL) IV ONE (07:52)
[2021-06-22] MEDS ORDERED: PHENYLEPHRINE-0.9% NACL SYG 1,000 MCG/10 ML SYRINGE ONE (07:52)
[2021-06-22] MEDS ORDERED: HEPARIN SODIUM,PORCINE 10,000 UNIT/ML 1 ML VIAL ONE (07:52)
[2021-06-22] MEDS ORDERED: GLYCOPYRROLATE 0.2 MG/ML 2 ML VIAL ONE (07:52)
[2021-06-22] MEDS ORDERED: fentaNYL (PF) 50 MCG/ML 2 ML AMP ONE (07:52)
[2021-06-22] MEDS ORDERED: PROPOFOL 10 MG/ML 20 ML VIAL IV ONE (07:52)
[2021-06-22] MEDS ORDERED: ePHEDrine SULFATE/0.9% NACL/PF 50 MG/5 ML SYRINGE IV ONE (07:52)
[2021-06-22] MEDS ORDERED: IOPAMIDOL-250 100ML BTL INTRAARTER ONE (09:50)
[2021-06-22] MEDS ORDERED: SODIUM CHLORIDE 0.9% 1,000 ML IV SCH (10:14)
[2021-06-22] MEDS ORDERED: ACETAMINOPHEN TAB 325 MG TAB PO PRN (10:14)
[2021-06-22] MEDS ORDERED: IPRATROPIUM-ALBUTEROL 3 ML NEB INHALATION PRN (10:14)
--- NOTE | 2021-06-22 10:20 | P.ANPRN ---
Procedure Note - Anesthesia - Invasive Line Left Arterial Line Time Out Performed: Yes Date of Procedure: 06/22/21 Time of Procedure: 07:20 Location of Patient: EP Preparation: Sterile Prep, Sterile Dressing Arterial Line Location: Radial Ultrasound Used: Yes Purpose - Visualization and Identification of Vasculature: Yes Needle Guage: 20 Image Stored and Saved: Yes Narrative: Initial attempt by LEGAL RECRUITER. Artery with heavy calcification. Line placed by anesthesiologist under u/s guidance using Seldinger technique. Right Central Line Time Out Performed: Yes Date of Procedure: 06/22/21 Time of Procedure: 07:40 Location of Patient: EP Preparation: Sterile Prep, Sterile Dressing Ultrasound Used: Yes Purpose - Visualization and Identification of Vasculature: Yes Needle Guage: 18 Image Stored and Saved: Yes Narrative: Central line placement per sterile protocol utilized. TLC under Seldinger technique.
[2021-06-22 10:29] LABS: Eosinophils # (M) 0.37 k/uL (0-0.7); Lymphocytes # (M) 5.37 k/uL (1.0-4.8); Metamyelocytes # (M) 0.12 k/uL (0); Metamyelocytes % 1 %; Monocytes # (M) 0.49 k/uL (0-1.0); Neutrophils % (M) 50 %; Nucleated Red Blood Cells 0 /100 WBC (0-0); Total Cells Counted 200
--- NOTE | 2021-06-22 10:30 | P.ANPRN ---
Procedure Note - Anesthesia - VICKIE Intraop Pre Bypass VICKIE Intraop - Anesthesia Indication: Aortic stenosis Date of Procedure: 06/22/21 Pre-operative Diagnosis: Post-operative Diagnosis: Same Surgeon: Bipin Brody Left Ventricle: EF 55%. 1 cm pericardial effusion Ejection Fraction: Normal Regional Wall Motion Abnormalities: None Left Ventricle Hypertrophy: Yes R. Ventricle Function: Normal Aortic Valve: Peak 52 mean 27 mmHg. GENEVIEVE 0.6 cm2. Planimetry GENEVIEVE 0.4 cm2 Anatomy: Trileaflet Aortic Stenosis: Severe Aortic Regurgitation: None Mitral Stenosis: None Mitral Regurgitation: Trace Tricuspid Stenosis: None Tricuspid Regurgitation: Trace Pulmonic Stenosis: None Pulmonic Regurgitation: None R. Atrial Dilation: No R. Atrial PFO: No L. Atrial Dilation: No Aortic Dissection: No Aortic Calcification: Severe Plural Effusion: None - VICKIE Intraop Post Bypass VICKIE Intraop Post Bypass Procedure Performed: TAVR Left Ventricle: EF 70% Ejection Fraction: Normal Regional Wall Motion Abnormalities: None R. Ventricle Function: Normal Aortic Valve: Gradient Peak 5 mmHg, mean 3 mmHg. Moderate perivalvular leak between NCC and LCC improved after dilation. Mitral Valve: Unchanged Tricuspid: Unchanged Pulmonic: Unchanged Aortic Dissection: No
[2021-06-22 10:49] LABS: Glucose,Whole Blood 129 mg/dL (75-99)
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
--- NOTE | 2021-06-22 11:13 | XR ---
EXAMINATION TYPE: XR chest 1V portable DATE OF EXAM: 06/22/2021 COMPARISON: 06/09/2011 INDICATION: Postop cardiac surgery TECHNIQUE: Single frontal view of the chest is obtained. FINDINGS: The heart size is mildly prominent. Cardiac valve surgery is evident.. The pulmonary vasculature is slightly prominent. No suspicious focal consolidation is evident. Pacemaker overlies left chest. Right central venous catheter is present with tip in region superior vena cava. IMPRESSION: 1. Mild to moderate cardiomegaly post cardiac surgery. 2. Mild vascular prominence.
[2021-06-22 13:21] LABS: Basophils % (A) 0 %; Eosinophils # (A) 0.2 k/uL (0-0.7); Eosinophils % (A) 2 %; HCT 42.2 % (39.0-53.0); HGB 13.8 gm/dL (13.0-17.5); Lymphocytes # (A) 3.7 k/uL (1.0-4.8); Lymphocytes % (A) 28 %; MCH 32.5 pg (25.0-35.0); MCHC 32.7 g/dL (31.0-37.0); MCV 99.4 fL (80.0-100.0); Mean Platelet Volume 9.9; Monocytes # (A) 0.5 k/uL (0-1.0); Monocytes % (A) 4 %; Neutrophils # (A) 8.8 k/uL (1.3-7.7); Neutrophils % (A) 66 %; Platelet Count 150 k/uL (150-450); RBC 4.25 m/uL (4.30-5.90); RDW 13.1 % (11.5-15.5); WBC 13.4 k/uL (3.8-10.6)
[2021-06-22 13:24] LABS: Ionized Calcium 4.8 mg/dL (4.5-5.3)
[2021-06-22 13:34] LABS: ALT 23 U/L (4-49); AST 35 U/L (17-59); African American GFR (CKD) >90 (>60 ml/min/1.73 sqM); Albumin 3.5 g/dL (3.5-5.0); Alkaline Phosphatase 68 U/L (38-126); Anion Gap 7 mmol/L; Blood Urea Nitrogen 19 mg/dL (9-20); Calcium 8.7 mg/dL (8.4-10.2); Carbon Dioxide 25 mmol/L (22-30); Chloride 105 mmol/L (98-107); Glucose 120 mg/dL (74-99); Magnesium 1.8 mg/dL (1.6-2.3); Non-African American GFR(CKD) >90 (>60 ml/min/1.73 sqM); Potassium 3.8 mmol/L (3.5-5.1); Sodium 137 mmol/L (137-145); Total Bilirubin 0.6 mg/dL (0.2-1.3); Total Protein 5.8 g/dL (6.3-8.2)
[2021-06-22 13:45] LABS: INR 1.1 (<1.2); Partial Thromboplastin Time 24.7 sec (22.0-30.0); Prothrombin Time 11.3 sec (9.0-12.0)
[2021-06-22] MEDS: HYDROcodone/APAP 7.5-325MG 1 EACH TAB PO PRN (14:37)
[2021-06-22] MEDS: INSULIN ASPART (NovoLOG) 100 UNIT/ML VIAL SQ SCH ×3 (14:40→20:42)
--- NOTE | 2021-06-22 15:25 | P.OP ---
Date of Procedure: 06/22/21 Preoperative Diagnosis: Aortic stenosis Postoperative Diagnosis: same Procedure(s) Performed: 34mm TAVR with Medtronic Corevalve Proplus via left transfemoral approach Implants: 34mm Corevalve Anesthesia: SARAA Surgeon: Bipin Brody Core Drier #1: Parker Rasheed (Interventional cardiology) Core Drier #2: Jorden Thorpe Estimated Blood Loss (ml): 100 IV fluids (ml): 1,000 Urine output (ml): 0 Pathology: none sent Condition: stable Disposition: ICU Indications for Procedure: 89-year-old male with severely symptomatic severe aortic stenosis. Patient had initially been seen in the tablet clinic several months ago at which time he was relatively asymptomatic but since his developed worsening shortness of breath. Operative Findings: Aortic valve was very tight and tricuspid. I was deployed with levels of 1 on the right and 3 on the left. There was mild residual aortic insufficiency on completion of the procedure with no evidence of aortic stenosis. Description of Procedure: Patient was brought to the cardiac supervisor laboratory and general anesthesia was induced. He was intubated in the anterior torso and bilateral groins were sterilely prepped and draped. Femoral access was obtained by Dr. Thorpe. 6 [place] Sb was placed on the right and 7-[place] sheath placed on the left. Perclose device was deployed on the left. Patient was systemically heparinized. On the right a pigtail catheter was advanced into the noncoronary sinus of the aortic valve. Femoral venous access had been obtained and it temporary pacer placed. On the left the sheath was exchanged over a stiff wire for a 14-[place] sheath and then the aortic valve was crossed. Pigtail catheter was placed in the apex and transvalvular gradients were measured. Lunderquist wire was then placed in the apex. Predilatation was performed with a 24 mm compliant balloon under rapid ventricular pacing. A 34 mm core valve was loaded on the back table and then brought up on the table and checked under fluoroscopy. The 14-[place] sheath was exchanged for the 34 core valve delivery system and this was advanced across the aortic valve. The valve was deployed under rapid ventricular pacing with excellent levels. There was mild to moderate aortic perivalvular leak noted and after removal of the core valve delivery system the 14-[place] sheath was replaced. Through this a 26 mm compliant balloon was advanced across the aortic valve and the valve prosthesis was dilated under rapid ventricular pacing. This led to considerable improvement in the aortic insufficiency such that it was mild. It also lead to much better expansion of the valve frame. We opted to accept the final result and heparin was reversed with protamine. The core valve delivery system was removed and Perclose device deployed with good hemostasis. Hemostasis bilateral groins was obtained by cardiology and the patient was transferred to the ICU in stable condition.
[2021-06-22] MEDS ORDERED: Potassium Replacement Protocol 1 EACH MISC MISCELLANE PRN (16:47)
[2021-06-22] MEDS ORDERED: POTASSIUM CHLORIDE ER 20 MEQ TAB.ER PO SCH (17:00)
[2021-06-22 17:21] LABS: Glucose,Whole Blood 102 mg/dL (75-99)
[2021-06-22 20:40] LABS: Glucose,Whole Blood 105 mg/dL (75-99)
[2021-06-22] MEDS: METOPROLOL SUCCINATE (ER) 100 MG TAB.ER.24H PO SCH (20:47)
[2021-06-22] MEDS ORDERED: LATANOPROST 0.005% OPHTH DROPS 2.5 ML BTL RIGHT EYE SCH (21:00)
[2021-06-22] MEDS ORDERED: hydrALAZINE HCL 25 MG TAB PO SCH (21:00)
[2021-06-22] MEDS ORDERED: AMIODARONE 200 MG TAB PO SCH (21:00)
[2021-06-22] MEDS ORDERED: ATORVASTATIN 10 MG TAB PO SCH (21:00)
--- NOTE | 2021-06-22 21:51 | P.OP ---
Description of Procedure: Transcatheter Aortic Valve Replacement Operative report PROCEDURE PERFORMED: 1. Percutaneous Aortic Valve Implantation using a 34 mm Core-Valve Evolut-Pro Plus. 2. Transesophageal echocardiography (performed by anesthesia) 3. Ultrasound guided access and repair of left femoral artery access site by Perclose closure device. 4. Placement of temporary pacemaker wire. 5. Aortic root angiography 6. Pre-TAVR balloon aortic valvuloplasty with a 24 mm Z-med balloon and post TAVR balloon aortic valvuloplasty with a 26mm Z-med balloon INDICATIONS: 1. 89 year-old with a history of severe symptomatic aortic valve stenosis. 2. Additional history of stroke several years ago, syncope, mild nonobstructive coronary artery disease, syncope. He does have paradoxical low flow low gradient with severely stenotic valve. PERFORMING PHYSICIANS: 1. Parker Rasheed DO Interventional Cardiology 2. Jorden Thorpe MD Interventional Cardiology. 3. Bipin Brody MD, Cardiothoracic Surgeon. 4. Shawn Meyers MD Proctoring Interventional cardiology SEDATION: General anesthesia provided by anesthesia, see separate note APPROACH: Left femoral artery via percutaneous PROCEDURE DESCRIPTION: The patient was discussed at valve clinic with multidisciplinary approach with cardiothoracic surgeon as well as gaming manager and felt to be a good TAVR candidate. Risks, benefits, and alternatives of the procedure had been explained to the patient who understood the risks and agreed to proceed. After consents were obtained, patient was brought to the transcatheter aortic valve implantation room in the cardiac mini lab operator and general anesthesia was provided by the anesthesiologist (see separate report). Once full body sterile prep was performed, right subclavian venous access was obtained and a temporary pacemaker was screwed in, performed by cardiothoracic surgery. Pacing threshholds were checked and deemed appropriate. Next the right femoral artery was accessed using a modified Seldinger technique, ultrasound guidance and micropuncture technique. A 6 [place] Rabi sheath was placed in the left femoral artery. Next, a 6-[place] pigtail catheter was advanced into the aorta and positioned in the aortic root, aortic root angiography was performed to determine optimal deployment angle. A 6Fr sheath was placed in the right femoral vein. A 5Fr TVP wire was advanced into the RV from the venous wire and pacing parameters were checked and deemed appropriate. The left femoral artery was accessed using modified Seldinger technique, micro puncture technique and under direct ultrasound guidance. A femoral angiogram was done showing proper access in the common femoral artery and a 6Fr sheath was placed. Next preclose technique was performed using 2 Percloses in the 10 oclock and 2 oclock position. Next a 0.035 Lunderquist wire was placed in the Aorta via a pigtail catheter. Over that the arteriotomy was serially dilated and an 18 Fr [place] sheath was placed. Next a 6F- AL1 catheter was advanced over a wire to the aortic root. A straight wire was advanced through the catheter and used to cross the severely stenotic valve. The AL1 was then exchanged for a 6Fr pigtail catheter and pressure measurements were obtained. The 0.035 Lunderquist wire was then positioned in the apex. Next Pre-TAVR balloon aortic valvuloplasty was performed with a 24 mm Z-med balloon. Next a 34 mm Corevalve Evolut-Pro Plus was advanced. The valve was then positioned across the aortic valve and confirmed with aortic root angiography. The valve was then deployed in proper position using slow deployment in conjuncture with aortic root angiography and VICKIE. The delivery system was withdrawn back into the arch and an aortic root injection in conjunction with VICKIE demonstrated mild to moderate perivalvular leak. Therefore the decision was made to perform post BAV which was performed with a 26mm Z med balloon. VICKIE demonstrated only mild para valvular leak. There was no evidence of any other significant abnormalities. The preclose Perclose was then deployed in the left femoral artery. There was still some oozing and therefore a 8Fr Angioseal was placed and hemostasis was achieved. The pigtail was then advanced to the level of the iliac bifurcation via the contralateral access. Femoral angiogram was performed that showed no contrast leak. The contralateral femoral angiogram demonstrated an arteriotomy in the common femoral artery and this was repaired using a 6F angioseal device with complete hemostasis. The temporary venous pacemaker was taken out and the venous sheath pulled with hemostasis achieved. The patient was then transported to the ICU in hemodynamically stable condition, requiring no pressor support. COMPLICATIONS: None CONCLUSION: 1. Implantaion of a 34mm Core-Valve Evolut-Pro Plus transcatheter aortic valve via left femoral approach under VICKIE and fluoro guidance with [] favian-valvular aortic regurgitation. 2. Placement of temporary pacemaker wire 3. Aortic Root Aortogram. 4. Pre-TAVR balloon aortic valvuloplasty with a 24 mm Z-med balloon and post TAVR balloon aortic valvuloplasty with a 26mm Z-med balloon RECOMMENDATIONS: The patient will be monitored in the ICU for hemodynamic and electrical stability. Patient will be on aspirin and Plavix.
[2021-06-23] MEDS: HEPARIN SODIUM,PORCINE/PF 5,000 UNIT/0.5 ML SYRINGE SQ SCH ×2 (00:14→10:20)
[2021-06-23] MEDS: HYDROcodone/APAP 7.5-325MG 1 EACH TAB PO PRN (00:19)
[2021-06-23 04:52] LABS: Basophils % (A) 0 %; Eosinophils # (A) 0.2 k/uL (0-0.7); Eosinophils % (A) 2 %; HCT 42.5 % (39.0-53.0); HGB 14.2 gm/dL (13.0-17.5); Lymphocytes # (A) 3.6 k/uL (1.0-4.8); Lymphocytes % (A) 30 %; MCH 33.5 pg (25.0-35.0); MCHC 33.5 g/dL (31.0-37.0); MCV 99.9 fL (80.0-100.0); Mean Platelet Volume 9.4; Monocytes # (A) 0.5 k/uL (0-1.0); Monocytes % (A) 4 %; Neutrophils # (A) 7.1 k/uL (1.3-7.7); Neutrophils % (A) 61 %; Platelet Count 144 k/uL (150-450); RBC 4.25 m/uL (4.30-5.90); WBC 11.7 k/uL (3.8-10.6)
[2021-06-23 04:57] LABS: Ionized Calcium 4.7 mg/dL (4.5-5.3)
[2021-06-23 05:32] LABS: ALT 19 U/L (4-49); AST 33 U/L (17-59); African American GFR (CKD) >90 (>60 ml/min/1.73 sqM); Albumin 3.7 g/dL (3.5-5.0); Alkaline Phosphatase 71 U/L (38-126); Anion Gap 7 mmol/L; Blood Urea Nitrogen 14 mg/dL (9-20); Carbon Dioxide 25 mmol/L (22-30); Chloride 104 mmol/L (98-107); Glucose 132 mg/dL (74-99); Magnesium 1.8 mg/dL (1.6-2.3); Non-African American GFR(CKD) 88 (>60 ml/min/1.73 sqM); Potassium 4.3 mmol/L (3.5-5.1); Sodium 136 mmol/L (137-145); Total Bilirubin 0.6 mg/dL (0.2-1.3)
[2021-06-23 06:37] LABS: Glucose,Whole Blood 149 mg/dL (75-99)
[2021-06-23] MEDS: INSULIN ASPART (NovoLOG) 100 UNIT/ML VIAL SQ SCH (06:52)
[2021-06-23] MEDS ORDERED: PANTOPRAZOLE 40 MG TABLET PO SCH (07:30)
--- NOTE | 2021-06-23 08:10 | XR ---
EXAMINATION TYPE: XR chest 1V portable DATE OF EXAM: 06/23/2021 COMPARISON: 06/14/2021 INDICATION: Postop cardiac surgery TECHNIQUE: Single frontal view of the chest is obtained. FINDINGS: The heart size is mildly prominent. The pulmonary vasculature is normal. The lungs are clear. Postsurgical cardiac findings. Pacemaker overlies left chest. Chronic rotator cuff tears present bila terally IMPRESSION: 1. Mild cardiomegaly. 2. No acute pulmonary process
[2021-06-23] MEDS ORDERED: APIXABAN 5 MG TAB PO SCH (09:00)
[2021-06-23] MEDS ORDERED: MAGNESIUM HYDROXIDE 2,400 MG/10 ML CUP PO PRN (09:00)
[2021-06-23] MEDS ORDERED: lisinopriL 20 MG TAB PO SCH (09:00)
[2021-06-23] MEDS ORDERED: metFORMIN 500 MG TAB PO SCH (09:00)
[2021-06-23] MEDS ORDERED: bisacodyL 10 MG SUPP RECTAL PRN (09:00)
[2021-06-23] MEDS ORDERED: CLOPIDOGREL 75 MG TAB PO SCH (09:00)
[2021-06-23] MEDS ORDERED: TROSPIUM CHLORIDE 20 MG TABLET PO SCH (09:00)
[2021-06-23] MEDS ORDERED: ASPIRIN 81 MG PO SCH (09:15)
--- NOTE | 2021-06-23 09:30 | P.PN ---
Subjective Progress Note Date: 06/23/21 89-year-old male patient who is post TAVR procedure, currently in the intensive care unit. He is hemodynamically stable. His cardiac rhythm is paced. He is on no pressors. Pulses are diminished in lower extremity is bilaterally. He is awake and following commands and answering questions appropriately. The patient has history of fatigue that was progressively getting worse over the past 12 months. At the same time he was progressively becoming more short of breath and his activity was becoming more limited. 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 He has had previous episodes of syncope and his echocardiac Juvenal demonstrated hypertrophic LV with dynamic LV function of 80% ejection fraction. The aortic valve was calcified and the valve area was 0.77 cm with a mean gradient of 27. CVA shows adequate access and the patient's cardiac catheterization showed mild no nonocclusive 40 artery disease. Preoperative FEV1 was in the order of 1.82 L which was 69% of predicted. Based on all this, the patient was taken to the [facility] and the patient underwent a VICKIE AVR procedure. His chest x-ray postop showing some cardiomegaly. The vascular pedicle is slightly enlarged. The valve is seen in adequate location. There is a gastric bubble. The pacemaker is in place also along with a pacemaker wires. 06/23/2021, the patient is feeling slightly dizzy. He had some urinary retention earlier this morning. Bladder scan showed excess amount of urinary retention. A Stauffer catheter was inserted and a neurology consultation is been obtained. The patient is currently on Sanctura SR 60 mg a daily basis. At the same time, he was having a lower blood pressure. He was taken off the lisinopril and hydralazine. Metabolic syndrome. Cardiac rhythm is still paced. He remains along for medical evaluation with [facility]. He remains also on ASA. No focal neurological deficit. Moving all 4 extremities. He has chronic numbness in his left upper extremity related to previous CVA. He is awake and conscious and communicating. He is hard of hearing. Chest x-ray from today shows some elevation of left hemidiaphragm. Pacemaker is in good location. There is some interstitial edema bilaterally. Objective - Vital Signs Vital signs: Vital Signs Temp 98.6 F 06/23/21 08:00 Pulse 61 06/23/21 09:00 Resp 25 H 06/23/21 09:00 BP 101/47 06/23/21 09:00 Pulse Ox 98 06/23/21 09:00 Intake & Output 06/22/21 06/23/21 06/23/21 18:59 06:59 18:59 Intake Total 700 100 Output Total 350 1230 Balance 350 100 -1230 Weight 82.5 kg 82.5 kg Intake: IV 250 Sodium Chloride 0.9% 1, 150 000 ml @ 50 mls/hr IV . Q20H [facility] Rx#:[id number] Intake, IV Titration 250 Amount Sodium Chloride 0.9% 500 200 ml 500 ml @ 10 mls/hr IV .Q24H [facility] Rx#:[id number] ceFAZolin 2 gm In Sodium 50 Chloride 0.9% 50 ml @ 100 mls/hr IVPB Q8HR [facility] Rx# :[id number] Oral 200 100 Output: Urine 350 1230 Other: Voiding Method Urinal Urinal # Voids 1 ABP, PAP, CO, CI - Last Documented Arterial Blood Pressure 157/54 - Exam The patient appeared well nourished and normally developed. Vital signs as documented. Head exam is unremarkable. No scleral icterus or corneal arcus noted. Neck is without jugular venous distension, thyromegaly, or carotid bruits. Carotid upstrokes are brisk bilaterally. Lungs are clear to auscultation and percussion. Cardiac exam reveals the PMI to be normally sized and situated. Rhythm is irregular and paced at this point in time and the patient is a pacemaker over the left anterior chest area.. First and second heart sounds normal. No murmurs, rubs or gallops. Abdominal exam reveals normal bowel sounds, no masses, no organomegaly and no aortic enlargement. Extremities are nonedemato us and both femoral and pedal pulses are diminished in lower extremities bilaterally and there being obtained by Doppler signal. The feet are relatively warm at this point in time. The patient has a fem stop on the left and a Perclose on the right.Examination of the skin revealed no evidence of si gnificant rashes, suspicious appearing nevi or other concerning lesions.Neurologically, the patient is awake and alert and the patient does not have any focal neurological deficit. Cranial nerves are essentially intact. - Labs CBC & Chem 7: 06/23/21 04:25 06/23/21 04:25 Labs: Abnormal Lab Results - Last 24 Hours (Table) 06/21/21 06/22/21 06/22/21 Range/Units 08:23 06:30 10:14 WBC 13.4 H (3.8-10.6) k/uL RBC 4.25 L (4.30-5.90) m/uL Plt Count (150-450) k/uL Neutrophils # 8.8 H (1.3-7.7) k/uL Lymphocytes # (Manual) 5.37 H (1.0-4.8) k/uL Metamyelocytes # (Man) 0.12 H (0) k/uL Sodium (137-145) mmol/L Creatinine (0.66-1.25) mg/dL Glucose (74-99) mg/dL POC Glucose (mg/dL) (75-99) mg/dL Total Protein (6.3-8.2) g/dL Crossmatch See Detail 06/22/21 06/22/21 06/22/21 Range/Units 10:14 10:47 17:20 WBC (3.8-10.6) k/uL RBC (4.30-5.90) m/uL Plt Count (150-450) k/uL Neutrophils # (1.3-7.7) k/uL Lymphocytes # (Manual) (1.0-4.8) k/uL Metamyelocytes # (Man) (0) k/uL Sodium (137-145) mmol/L Creatinine 0.59 L (0.66-1.25) mg/dL Glucose 120 H (74-99) mg/dL POC Glucose (mg/dL) 129 H 102 H (75-99) mg/dL Total Protein 5.8 L (6.3-8.2) g/dL Crossmatch 06/22/21 06/23/21 06/23/21 Range/Units 20:39 04:25 04:25 WBC 11.7 H (3.8-10.6) k/uL RBC 4.25 L (4.30-5.90) m/uL Plt Count 144 L (150-450) k/uL Neutrophils # (1.3-7.7) k/uL Lymphocytes # (Manual) (1.0-4.8) k/uL Metamyelocytes # (Man) (0) k/uL Sodium 136 L (137-145) mmol/L Creatinine 0.62 L (0.66-1.25) mg/dL Glucose 132 H (74-99) mg/dL POC Glucose (mg/dL) 105 H (75-99) mg/dL Total Protein 6.0 L (6.3-8.2) g/dL Crossmatch 06/23/21 Range/Units 06:35 WBC (3.8-10.6) k/uL RBC (4.30-5.90) m/uL Plt Count (150-450) k/uL Neutrophils # (1.3-7.7) k/uL Lymphocytes # (Manual) (1.0-4.8) k/uL Metamyelocytes # (Man) (0) k/uL Sodium (137-145) mmol/L Creatinine (0.66-1.25) mg/dL Glucose (74-99) mg/dL POC Glucose (mg/dL) 149 H (75-99) mg/dL Total Protein (6.3-8.2) g/dL Crossmatch Assessment and Plan Plan: 1 severe symptomatic aortic stenosis, valve area of 0.77 cm, post VICKIE AVR procedure. Patient is currently postop day #1. 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 Impared Hearing 14 Urinary rentension and the patient has a afoley cath placed Plan IV fluids fluids to Heplock We'll resume Eliquis and we are going to stop the Plavix and the patient only on aspirin. We going to stop hydralazine and lisinopril and keep the beta blockers for now History of the Stauffer catheter in place and consult urology Sliding scale insulin coverage in addition to oral hypoglycemics to be restarted Resume home medications Monitor the vascular pulses in lower extremities bilaterally Monitor mental status Cardiac rhythm is paced We'll continue to follow
[2021-06-23] MEDS: METOPROLOL SUCCINATE (ER) 100 MG TAB.ER.24H PO SCH (10:20)
--- NOTE | 2021-06-23 11:01 | ECHOF ---
Referral Reason:post tavr MEASUREMENTS -------- HEIGHT: 175.3 cm WEIGHT: 82.1 kg BP: IVSd: 1.4 cm (0.6 - 1.1) LVIDd: 3.6 cm (3.9 - 5.3) LVPWd: 1.8 cm (0.6 - 1.1) IVSs: 1.6 cm LVIDs: 2.6 cm LVPWs: 1.9 cm AV maxP.87 mmHg AV meanP.20 mmHg AR PHT: 707 ms FINDINGS -------- This was a technically difficult study with suboptimal views. Limited Study The left ventricular size is normal. There is moderate concentric left ventricular hypertrophy. O verall left ventricular systolic function is normal with, an EF between 55 - 60 %. Lumason used Trace amount of aortic regurgitation. Peak/mean gradient across the Aortic Valve is 15.87mmHg / 8. 20mmHg. TAVR procedure done There is no pericardial effusion. CONCLUSIONS -------- 1. The left ventricular size is normal. 2. There is moderate concentric left ventricular hypertrophy. 3. Overall left ventricular systolic function is normal with, an EF between 55 - 60 %. 4. Trace amount of aortic regurgitation. 5. Peak/mean gradient across the Aortic Valve is 15.87mmHg / 8.20mmHg. 6. TAVR procedure done 7. There is no pericardial effusion. MANAGER CORPORATE RESPONSIBILITY: Kaylene Garcia RDCS
--- NOTE | 2021-06-23 11:17 | P.PN ---
Subjective Progress Note Date: 06/23/21 Principal diagnosis: Severe symptomatic aortic valve stenosis. Past medical history significant for hypertension, hyperlipidemia, cqs-djlajjf-fglumzsgv diabetes mellitus, mild non obstructive coronary artery disease, syncope, tachycardia bradycardia syndrome, status post permanent pacemaker placement, TIA in 2018, BPH, polio, neuropathy, obstructive sleep apnea with CPAP use, and paroxysmal atrial fibrillation. POD #1 Percutaneous Aortic Valve Implantation using a 34 mm Core-Valve Evolut- Pro Plus via left transfemoral approach, transesophageal echocardiography (performed by anesthesia), ultrasound guided access and repair of left femoral artery access site by Perclose closure device, placement of temporary pacemaker wire, aortic root angiography, pre-TAVR balloon aortic valvuloplasty with a 24 mm Z-med balloon and post TAVR balloon aortic valvuloplasty with a 26mm Z-med balloon. Urinary retention requiring placement of Stauffer catheter. Expected as the patient has a history of BPH and occasional urinary incontinence at home. The patient was seen in follow-up today 06/23/2021 at his bedside in the intensive care unit. Currently he is sitting up to the bedside chair, is awake, alert and oriented 3 and is in no acute apparent distress. He denies any complaints of pain or shortness of breath at this time, although he is complaining of generalized fatigue and urinary incontinence. A bedside bladder scan was completed which demonstrated over 900 mL of urine, requiring placement of Stauffer catheter with 1.2 L of urine drained. He remains hemodynamically s table and is currently on no inotropic pressor support. Bedside telemetry showing paced rhythm with heart rate 60 BPM. Bilateral groin access site clean, dry and intact. Patient is eating his breakfast and tolerating oral intake. Objective - Vital Signs Vital signs: Vital Signs Temp 98.4 F 06/23/21 04:00 Pulse 68 06/23/21 06:00 Resp 14 06/23/21 06:00 BP 100/46 06/23/21 06:00 Pulse Ox 94 L 06/23/21 05:00 Intake & Output 06/22/21 06/23/21 06/23/21 18:59 06:59 18:59 Intake Total 700 100 Output Total 350 Balance 350 100 Weight 82.5 kg 82.5 kg Intake: IV 250 Sodium Chloride 0.9% 1, 150 000 ml @ 50 mls/hr IV . Q20H [facility] Rx#:[id number] Intake, IV Titration 250 Amount Sodium Chloride 0.9% 500 200 ml 500 ml @ 10 mls/hr IV .Q24H [facility] Rx#:[id number] ceFAZolin 2 gm In Sodium 50 Chloride 0.9% 50 ml @ 100 mls/hr IVPB Q8HR [facility] Rx# :[id number] Oral 200 100 Output: Urine 350 Other: Voiding Method Urinal Urinal # Voids 1 ABP, PAP, CO, CI - Last Documented Arterial Blood Pressure 157/54 - Exam CONSTITUTIONAL: Sitting up to the bedside chair in the intensive care unit, appears comfortable, cooperative, no apparent acute distress. HEENT: Neck is supple, no JVD, no lymphadenopathy. RESPIRATORY: Lungs sounds essentially clear throughout, diminished to his bilateral bases. Respirations are symmetrical and nonlabored. Currently room air with oxygen saturations 94%. Able to achieve 1500 mL on their incentive spirometry. Strong cough. CARDIOVASCULAR: Regular rhythm and rate. S1 and S2 present, negative for S3, gallop or murmur. Palpable peripheral pulses bilaterally, +1 edema to his left lower extremity. No calf pain or tenderness noted. Knee-high JON hose and sequential compression devices in place to his bilateral lower extremities. Bedside telemetry showing paced rhythm with heart rate 60 BPM. GASTROINTESTINAL: Abdomen soft, nontender, nondistended. Active bowel sounds present 4 quadrants. Tolerating diet. No guarding or rigidity. GENITOURINARY: Stauffer present draining clear, yellow urine. Output 1.2 L in the last 8 hours INTEGUMENTARY: Skin is warm and dry with no evidence of clubbing or cyanosis. Bilateral groin access sites clean, dry and intact. Soft to touch. No drainage present. NEUROLOGIC: Cranial nerves II through XII intact. No focal deficits. MUSKULOSKELETAL: Able to move all extremities, strength equal bilaterally, generalized weakness. PSYCHIATRIC: Alert and oriented to person place and time, appropriate affect, intact judgment and insight. - Labs CBC & Chem 7: 06/23/21 04:25 06/23/21 04:25 Labs: Abnormal Lab Results - Last 24 Hours (Table) 06/21/21 06/22/21 06/22/21 Range/Units 08:23 06:30 10:14 WBC 13.4 H (3.8-10.6) k/uL RBC 4.25 L (4.30-5.90) m/uL Plt Count (150-450) k/uL Neutrophils # 8.8 H (1.3-7.7) k/uL Lymphocytes # (Manual) 5.37 H (1.0-4.8) k/uL Metamyelocytes # (Man) 0.12 H (0) k/uL Sodium (137-145) mmol/L Creatinine (0.66-1.25) mg/dL Glucose (74-99) mg/dL POC Glucose (mg/dL) (75-99) mg/dL Total Protein (6.3-8.2) g/dL Crossmatch See Detail 06/22/21 06/22/21 06/22/21 Range/Units 10:14 10:47 17:20 WBC (3.8-10.6) k/uL RBC (4.30-5.90) m/uL Plt Count (150-450) k/uL Neutrophils # (1.3-7.7) k/uL Lymphocytes # (Manual) (1.0-4.8) k/uL Metamyelocytes # (Man) (0) k/uL Sodium (137-145) mmol/L Creatinine 0.59 L (0.66-1.25) mg/dL Glucose 120 H (74-99) mg/dL POC Glucose (mg/dL) 129 H 102 H (75-99) mg/dL Total Protein 5.8 L (6.3-8.2) g/dL Crossmatch 06/22/21 06/23/21 06/23/21 Range/Units 20:39 04:25 04:25 WBC 11.7 H (3.8-10.6) k/uL RBC 4.25 L (4.30-5.90) m/uL Plt Count 144 L (150-450) k/uL Neutrophils # (1.3-7.7) k/uL Lymphocytes # (Manual) (1.0-4.8) k/uL Metamyelocytes # (Man) (0) k/uL Sodium 136 L (137-145) mmol/L Creatinine 0.62 L (0.66-1.25) mg/dL Glucose 132 H (74-99) mg/dL POC Glucose (mg/dL) 105 H (75-99) mg/dL Total Protein 6.0 L (6.3-8.2) g/dL Crossmatch 06/23/21 Range/Units 06:35 WBC (3.8-10.6) k/uL RBC (4.30-5.90) m/uL Plt Count (150-450) k/uL Neutrophils # (1.3-7.7) k/uL Lymphocytes # (Manual) (1.0-4.8) k/uL Metamyelocytes # (Man) (0) k/uL Sodium (137-145) mmol/L Creatinine (0.66-1.25) mg/dL Glucose (74-99) mg/dL POC Glucose (mg/dL) 149 H (75-99) mg/dL Total Protein (6.3-8.2) g/dL Crossmatch Assessment and Plan Assessment: 1. Severe symptomatic aortic valve stenosis, status post percutaneous Aortic Valve Implantation using a 34 mm Core-Valve Evolut-Pro Plus via left transfemoral approach 2. History of hypertension 3. Hyperlipidemia 4. Aaz-tlfbyus-pritjuipf diabetes mellitus 5. History of syncope 6. Mild nonobstructive coronary artery disease 7. Tachycardia bradycardia syndrome, status post permanent pacemaker placement 8. BPH 9. History of TIA in 2018 10. History of polio 11. Neuropathy 12. Obstructive sleep apnea with home CPAP use 13. History of paroxysmal atrial fibrillation Plan: 1. Continue low dose aspirin, Eliquis, statin, and beta dwight. His hydralazine and lisinopril have been discontinued by cardiology. 2. Continue to encourage incentive spirometry 10 times every hour while awake. 3. Increase activity, ambulate as tolerated. Out of bed for all meals. Physical and occupational therapy have been consulted. 4. Will obtain a 2-D echocardiogram today to evaluate valve function and review for presence of perivalvular leak 5. Place Stauffer catheter for bladder scan of greater than 900 mL of urine. Consult urology for urine retention. 6. Will make follow-up appointments with cardiology and valve clinic for 1 month, as well as one week with cardiology for groin check. 7. Home medication of amiodarone, [place], glipizide, metformin and Sanctura have been restarted. 8. Plan is to discharge patient to home within the next 24 hours with home health care. Time with Patient: Greater than 30
[2021-06-23 11:52] VITALS: BMI 26.9
[2021-06-23 12:08] LABS: Glucose,Whole Blood 121 mg/dL (75-99)
[2021-06-23 12:11] VITALS: TEMP 97.6
--- NOTE | 2021-06-23 12:48 | P.PN ---
Subjective This is a pleasant 89-year-old male past medical history significant for nonobstructive coronary artery disease, aortic stenosis, hypertension, dyslipidemia, diabetes mellitus and for paroxysmal atrial fibrillation with tachybradycardia syndrome status post permanent pacemaker implantation. He is status post percutaneous aortic valve implantation using a 34 mm Core-Valve Evolut-Pro Plus via left transfemoral approach, ultrasound guided access and repair of left femoral artery access site by Perclose closure device, placement of temporary pacemaker wire, aortic root angiography, pre-TAVR balloon aortic valvuloplasty with a 24 mm Z-med balloon and post TAVR balloon aortic valvuloplasty with a 26mm Z-med balloon. Today is POD#1. He had some issue overnight of frequent urinary dribbling, bladder scan revealed over a liter of retained urine. Stauffer catheter was placed with over 3 liters of urine output. Blood pressure 123/58 heart rate 62 afebrile maintaining oxygen saturation on room air. Laboratory, WBC 11.7, hemoglobin 14.2, platelets 144, sodium 136, potassium 4.3, creatinine 0.62 and magnesium 1.8. Repeat limited echo today reveals preserved LV systolic function with EF 55-60%, trace AR, mean gradient 8mmHg and no pericardial effusion. Chest xray today reveals no acute cardiopulmonary process. GENERAL: Well-appearing, well-nourished and in no acute distress. NECK: Supple without JVD or thyromegaly. LUNGS: Breath sounds clear to auscultation bilaterally. Respiration equal and unlabored. No wheezes, rales or rhonchi. HEART: Regular rate and rhythm without murmurs, rubs or gallops. S1 and S2 heard. EXTREMITIES: Normal range of motion, no edema. No clubbing or cyanosis. Peripheral pulses intact, left femoral access site soft non-tender with no hematoma or ecchymosis. ASSESSMENT Severe aortic stenosis s/p TAVR Urinary retention Hypertension Dyslipidemia Diabetes mellitus Paroxysmal atrial fibrillation on eliquis Tachy-trell syndrome s/p pacemaker implantation PLAN Continue current medical regimen. Increase activity and ambulation as tolerated. Encourage incentive spirometer use. Further recommendations to follow. Nurse Practitioner note has been reviewed, I agree with a documented findings and plan of care. Patient was seen and examined. Objective - Vital Signs Vital signs: Vital Signs Temp 97.6 F 06/23/21 12:00 Pulse 62 06/23/21 12:00 Resp 18 06/23/21 12:00 BP 123/58 06/23/21 12:00 Pulse Ox 98 06/23/21 12:00 Intake & Output 06/22/21 06/23/21 06/23/21 18:59 06:59 18:59 Intake Total 700 100 Output Total 350 3705 Balance 350 100 -3705 Weight 82.5 kg 82.5 kg 82.5 kg Intake: IV 250 Sodium Chloride 0.9% 1, 150 000 ml @ 50 mls/hr IV . Q20H [facility] Rx#:[id number] Intake, IV Titration 250 Amount Sodium Chloride 0.9% 500 200 ml 500 ml @ 10 mls/hr IV .Q24H [facility] Rx#:[id number] ceFAZolin 2 gm In Sodium 50 Chloride 0.9% 50 ml @ 100 mls/hr IVPB Q8HR [facility] Rx# :[id number] Oral 200 100 Output: Urine 350 3705 Coude 2400 Other: Voiding Method Urinal Urinal Indwelling Catheter # Voids 1 ABP, PAP, CO, CI - Last Documented Arterial Blood Pressure 157/54 - Labs CBC & Chem 7: 06/23/21 04:25 06/23/21 04:25 Labs: Abnormal Lab Results - Last 24 Hours (Table) 06/21/21 06/22/21 06/22/21 Range/Units 08:23 10:14 10:14 WBC 13.4 H (3.8-10.6) k/uL RBC 4.25 L (4.30-5.90) m/uL Plt Count (150-450) k/uL Neutrophils # 8.8 H (1.3-7.7) k/uL Sodium (137-145) mmol/L Creatinine 0.59 L (0.66-1.25) mg/dL Glucose 120 H (74-99) mg/dL POC Glucose (mg/dL) (75-99) mg/dL Total Protein 5.8 L (6.3-8.2) g/dL Crossmatch See Detail 06/22/21 06/22/21 06/23/21 Range/Units 17:20 20:39 04:25 WBC 11.7 H (3.8-10.6) k/uL RBC 4.25 L (4.30-5.90) m/uL Plt Count 144 L (150-450) k/uL Neutrophils # (1.3-7.7) k/uL Sodium (137-145) mmol/L Creatinine (0.66-1.25) mg/dL Glucose (74-99) mg/dL POC Glucose (mg/dL) 102 H 105 H (75-99) mg/dL Total Protein (6.3-8.2) g/dL Crossmatch 06/23/21 06/23/21 06/23/21 Range/Units 04:25 06:35 12:06 WBC (3.8-10.6) k/uL RBC (4.30-5.90) m/uL Plt Count (150-450) k/uL Neutrophils # (1.3-7.7) k/uL Sodium 136 L (137-145) mmol/L Creatinine 0.62 L (0.66-1.25) mg/dL Glucose 132 H (74-99) mg/dL POC Glucose (mg/dL) 149 H 121 H (75-99) mg/dL Total Protein 6.0 L (6.3-8.2) g/dL Crossmatch
[2021-06-23] MEDS ORDERED: TAMSULOSIN 0.4 MG CAP.ER.24H PO SCH (14:00)
[2021-06-23 14:07] VITALS: PULSE 61
[2021-06-23 15:06] VITALS: BP 105/50; RESP 15
--- NOTE | 2021-06-23 15:09 | P.DS ---
Providers Date of admission: 06/22/21 06:04 Expected date of discharge: 06/23/21 Attending physician: Parker Rasheed DO Consults: 06/22/21 10:14 Consult Physician Routine Consulting Provider: Marie Osullivan Consult Reason/Comments: Hospital Personnel Director Consult: post cardiac surgery Do you want consulting provider notified?: Yes 06/22/21 10:52 Consult Physician Routine Consulting Provider: Bipin Brody Consult Reason/Comments: post tavr Do you want consulting provider notified?: Already Contacted Placement Type Exists?: Yes 06/23/21 07:50 Consult Physician Routine Consulting Provider: Horace Michel Consult Reason/Comments: urine retention Do you want consulting provider notified?: Yes Primary care physician: Mariola Butler [facility] Course: FINAL DIAGNOSIS: 1. Severe symptomatic aortic valve stenosis, status post percutaneous Aortic Valve Implantation using a 34 mm Core-Valve Evolut-Pro Plus via left transfemoral approach 2. History of hypertension 3. Hyperlipidemia 4. Nea-jrwmzkh-ebmwzzsai diabetes mellitus 5. History of syncope 6. Mild nonobstructive coronary artery disease 7. Tachycardia bradycardia syndrome, status post permanent pacemaker placement 8. BPH 9. History of TIA in 2018 10. History of polio 11. Neuropathy 12. Obstructive sleep apnea with home CPAP use 13. History of paroxysmal atrial fibrillation 14. Urinary retention requiring placement of Stauffer catheter PRINCIPAL PROCEDURE: 1. Percutaneous aortic valve implantation using a 34 mm Core-Valve Evolut-Pro Plus via left transfemoral approach. 2. Transesophageal echocardiograph (performed by anesthesia) 3. Ultrasound-guided access and repair of left femoral artery access site by Perclose closure device. 4. Placement of temporary pacemaker wire 5. Aortic root angiography 6. Pre-to have her balloon aortic valvuloplasty with a 24 mm Z-med balloon and post have her balloon aortic valvuloplasty with a 26 mm Z-med balloon. HISTORY OF PRESENT ILLNESS: This is an 89-year-old gentleman who follows with Dr. Mariola Butler for his primary care needs. He also follows [facility]. He has a past medical history significant for known aortic valve stenosis, hypertension, hyperlipidemia, fix-cottvfm-ddykecxiu diabetes mellitus, history of syncope, mild nonobstructive coronary artery disease, tachybradycardia syndrome status post permanent pacemaker placement, BPH, history of TIA in 2018, history of polio, history of neuropathy, obstructive sleep apnea with home CPAP use and history of paroxysmal atrial fibrillation on Eliquis for anticoagulation on an outpatient basis. Recently, the patient has had progressive fatigue, shortness of breath and an ginal symptomology over the past 2-3 months. The patient was complaining of the above-mentioned symptoms with activity and even at rest. Due to the patient's symptoms he underwent a cardiac catheterization and transesophageal echocardiogram on 04/27/2021. The cardiac catheterization demonstrated extremely calcified right and left coronary systems with mild to moderate nonobstructive coronary artery disease. The transesophageal echocardiogram demonstrated a mildly impaired left ventricular function with an ejection fraction of around 45%, severe biatrial enlargement, a bicuspid aortic valve with fusion of the right and left coronary cusps and evidence of moderate to severe aortic valve stenosis with a peak gradient of 48 and a mean gradient of 27 mmHg, moderate mitral valve regurgitation and moderate tricuspid valve regurgitation. Due to the patient's symptoms and findings on the transesophageal echocardiogram he was referred to the structural heart clinic for evaluation for transcatheter aortic valve replacement. He underwent workup for trans-catheter aortic valve replacement, underwent STS risk score along with incremental risk score and the patient was considered to be a very high risk for surgical aortic valve replacement, and therefore a transcatheter aortic valve replacement was recommended. The usual course of TAVR was discussed in detail with the patient by the structural heart team, risks and benefits were reviewed and knowing and understanding the risks, the patient consented to proceed with the TAVR procedure. HOSPITAL COURSE: The patient was admitted to the hospital on 06/22/2021, was taken to the extended stay area, prepared in the usual fashion and subsequently taken to the cardiac catheterization laboratory where Dr. Rasheed and Dr. Brody completed a TAVR procedure under general anesthetic with fluoroscopy and transesophageal echocardiogram. The valve was deployed under rapid ventricular pacing and proceeded without event. At the end of the procedure there was a peak/mean gradient of 5/3 mmHg across the aortic valve, hemodynamics were felt to be excellent and there was evidence of moderate perivalvular leak between the non-coronary cusp and the left coronary cusp which improved after dilation. Upon completion of the procedure the patient was extubated and was transferred to the cardiovascular intensive care unit where he was recovered and monitored hemodynamically. His oxygen was titrated down, he was tolerating an oral diet, his pain was well controlled, follow-up TTE demonstrated moderate concentric left ventricular hypertrophy, an overall left ventricular systolic function to be normal with an ejection fraction between 55 and 60%, trace amount of aortic valve regurgitation, a peak/mean gradient across the aortic valve of 15.87 mmHg and 8.20 mmHg. No pericardial effusion was present. The patient did have some urinary retention post procedure requiring placement of Stauffer catheter in which the patient will be discharged home with the catheter in place and follow-up with urology on an outpatient basis on 06/27/2021 at 10 AM. The patient is ready to be discharged home on postoperative day #1 with [facility]. The patient and his daughter present at his bedside have received written and verbal instructions regarding his medications, activity restrictions, signs and symptoms requiring physician notification and his follow-up appointments. COMPLICATIONS: His recovery was complicated by some urinary retention requiring placement of Stauffer catheter. Plan - Discharge Summary Discharge Rx Participant: No New Discharge Prescriptions: New Aspirin 81 mg PO DAILY chew Tamsulosin [Flomax] 0.4 mg PO PC-BRKFST #30 cap.er.24h Pantoprazole [Protonix] 40 mg PO AC-BRKFST #30 tablet.dr Continue Simvastatin [Zocor] 20 mg PO HS metFORMIN HCL [Glucophage] 1,000 mg PO BID Latanoprost/Pf [Latanoprost 0.005% Eye Drop] 1 drop RIGHT EYE HS Hydrocodone/Acetaminophen [Vicodin ES 7.5-300 mg] 1 tab PO Q6H PRN PRN Reason: Pain Metoprolol Succinate (ER) [Toprol XL] 100 mg PO BID Nitroglycerin Sl Tabs [Nitrostat] 0.4 mg SUBLINGUAL Q5M PRN PRN Reason: Chest Pain Amiodarone [Cordarone] 200 mg PO HS Apixaban [Eliquis] 5 mg PO DAILY glipiZIDE XL [Glucotrol XL] 2.5 mg PO QAM Discontinued Trospium Chloride [Sanctura XR] 60 mg PO DAILY lisinopriL [Zestril] 20 mg PO QAM hydrALAZINE HCL 25 mg PO BID No Action Furosemide [Lasix] 40 mg PO QAM PRN PRN Reason: sob Discharge Medication List Simvastatin [Zocor] 20 mg PO HS 08/15/15 [History] metFORMIN HCL [Glucophage] 1,000 mg PO BID 07/10/15 [History] Furosemide [Lasix] 40 mg PO QAM PRN 05/26/19 [History] Latanoprost/Pf [Latanoprost 0.005% Eye Drop] 1 drop RIGHT EYE HS 05/26/19 [History] Amiodarone [Cordarone] 200 mg PO HS 08/04/19 [History] Hydrocodone/Acetaminophen [Vicodin ES 7.5-300 mg] 1 tab PO Q6H PRN 08/04/19 [History] Metoprolol Succinate (ER) [Toprol XL] 100 mg PO BID 08/04/19 [History] Nitroglycerin Sl Tabs [Nitrostat] 0.4 mg SUBLINGUAL Q5M PRN 08/04/19 [History] Apixaban [Eliquis] 5 mg PO DAILY 04/22/21 [History] glipiZIDE XL [Glucotrol XL] 2.5 mg PO QAM 04/22/21 [History] Aspirin 81 mg PO DAILY chew 06/23/21 [Rx] Pantoprazole [Protonix] 40 mg PO AC-BRKFST #30 tablet. 06/23/21 [Rx] Tamsulosin [Flomax] 0.4 mg PO PC-BRKFST #30 cap.er.24h 06/23/21 [Rx] Follow up Appointment(s)/Referral(s): Luis Rodriguez MD [STAFF PHYSICIAN] - 1 Week (Sunday07/01/2021 at 12:[address] Rodriguez for groin check, will have echo (ultrasound of your heart) with Dr. Rodriguez on 07/29/2021 at 9:45 am.) Kaylene Isaac NPC [Nurse Practitioner] - 07/29/21 11:00 am (to follow up in the valve clinic at [facility], [address] after finished at Dr Rodriguez's office on 07/29/2021. ) [facility], [NON-STAFF] - 06/24/21 Mariola Butler MD [Primary Care Provider] - As Needed Horace Michel MD [STAFF PHYSICIAN] - 06/27/21 10:00 am Patient Instructions/Handouts: Surgical Site Infections (DC), Transcatheter Aortic Valve Replacement (DC) Activity/Diet/Wound Care/Special Instructions: DISCHARGE INSTRUCTIONS: 1. No driving for 1 week, or until physician gives their ok. 2. No lifting, pushing, or pulling more than 5-10 pounds for 1 week. 3. Hold both groins when you cough or sneeze for the next 2 weeks. Bruising is common, but report increased swelling, pain or fever >101F 4. Shower daily. No pool, hot tub, or bathtub for 1 week 5. No powders, lotions, ointments on incisions. 6. No straining, including for bowel movements. Use stool softner if necessary 7. Stairs are not an issue. Go slowly, using handrail and take 1 step at a time. Ambulate several times daily 8. Continue pain control per as needed orders. 9. Take only the medications listed on your discharge form 10. Eat low salt (limited to 2 grams or 2000 milligrams) daily, avoid adding salt, avoid canned/processed foods 11. Take your weight daily in the morning and record, bring with you to your follow up appointments 12. Keep all follow up appointments. You will need a valve clinic appointment at 30 days and 1 year post procedure for follow up 13. You have been referred to and are expected to begin Cardiac Rehab in approximately 4 weeks. 14. You will need antibiotics prior to any dental work, including cleanings, and any surgeries to prevent Endocarditis (bacterial infection in your heart) For any questions or concerns please call your valve coordinators: Kaylene @ or Victor Manuel @ Discharge Disposition: HOME WITH HOME HEALTH SERVICES
[2021-06-23] MEDS ORDERED: SENNOSIDES-DOCUSATE SODIUM 1 EACH TAB PO SCH (21:00)
[2021-06-24] MEDS ORDERED: metFORMIN 500 MG TAB PO SCH (09:00)
== END 2021-06-23 16:31 | disposition home health service (06) | DRG 267 ==
LOC: 2ORMAIN 06:04 → 2SICU 10:11
PROVIDERS: ADMIT Thoracic Surgery (Cardiothoracic Vascular Surgery); ATTEND Internal Medicine
PROC: B3101ZZ Fluoroscopy of Thoracic Aorta using Low Osmolar Contrast (ICD-10-PCS; 2021-06-22)
PROC: B24BZZ4 Ultrasonography of Heart with Aorta, Transesophageal (ICD-10-PCS; 2021-06-22)
PROC: 02RF38Z Replacement of Aortic Valve with Zooplastic Tissue, Percutaneous Approach (ICD-10-PCS; principal; 2021-06-22 08:00)
PROC: 5A1223Z Performance of Cardiac Pacing, Continuous (ICD-10-PCS; 2021-06-22 08:00)
DX: Q23.1 Congenital insufficiency of aortic valve (principal); I08.1 Rheumatic disorders of both mitral and tricuspid valves; Z00.6 Encounter for examination for normal comparison and control in clinical research program; I25.10 Atherosclerotic heart disease of native coronary artery without angina pectoris; Z86.73 Personal history of transient ischemic attack (TIA), and cerebral infarction without residual deficits; R33.9 Retention of urine, unspecified; N40.1 Benign prostatic hyperplasia with lower urinary tract symptoms; E78.5 Hyperlipidemia, unspecified; E11.9 Type 2 diabetes mellitus without complications; G47.33 Obstructive sleep apnea (adult) (pediatric); G62.9 Polyneuropathy, unspecified; I50.9 Heart failure, unspecified; I11.0 Hypertensive heart disease with heart failure; Z20.822 Contact with and (suspected) exposure to COVID-19; I49.5 Sick sinus syndrome; Z95.0 Presence of cardiac pacemaker; G14 Postpolio syndrome; I48.0 Paroxysmal atrial fibrillation; H54.62 Unqualified visual loss, left eye, normal vision right eye; Z97.4 Presence of external hearing-aid; H91.90 Unspecified hearing loss, unspecified ear; R32 Unspecified urinary incontinence; Z79.01 Long term (current) use of anticoagulants; Z79.84 Long term (current) use of oral hypoglycemic drugs; Z79.899 Other long term (current) drug therapy; Z97.0 Presence of artificial eye; E88.81 Metabolic syndrome and other insulin resistance
CPT/HCPCS: 33210; 33361; 36415; 71045; 80053; 82330; 83735; 85025; 85610; 85730; 86850; 86900; 86901; 86920; 87635; 93308; 93312; 93320; 93325

== ENCOUNTER → 2021-08-02 | Outpatient (CLI) | payer MEDICARE ==
[2021-08-02 16:52] LABS: Basophils # (A) 0.03 X 10*3/uL (0.00-0.10); Basophils % (A) 0.3 %; Eosinophils % (A) 1.9 %; HCT 39.9 % (39.6-50.0); HGB 12.6 g/dL (13.0-17.0); Lymphocytes # (A) 3.52 X 10*3/uL (0.90-5.00); Lymphocytes % (A) 33.5 %; MCH 31.3 pg (27.0-32.0); MCHC 31.6 g/dL (32.0-37.0); MCV 99.3 fL (80.0-97.0); Mean Platelet Volume 12.3 fL (9.5-12.2); Monocytes # (A) 0.46 X 10*3/uL (0.20-1.00); Monocytes % (A) 4.4 %; Neutrophils # (A) 6.24 X 10*3/uL (1.80-7.70); Neutrophils % (A) 59.4 %; Platelet Count 153 X 10*3/uL (140-440); RBC 4.02 X 10*6/uL (4.40-5.60); RDW 13.9 % (11.5-14.5)
[2021-08-02 21:13] LABS: African American GFR (CKD) 87.5 (60.0-200.0); Anion Gap 9.4 mmol/L (4.00-12.00); BUN/Creat Ratio 18.89 Ratio (12.00-20.00); Calcium 8.9 mg/dL (8.7-10.3); Carbon Dioxide 24.6 mmol/L (21.6-31.8); Non-African American GFR(CKD) 75.5 (60.0-200.0); Potassium 5.3 mmol/L (3.5-5.5)
== END | disposition home or self-care (01) ==
LOC: LABWHC1 09:58
PROVIDERS: ATTEND Thoracic Surgery (Cardiothoracic Vascular Surgery)
DX: I35.1 Nonrheumatic aortic (valve) insufficiency (principal)
CPT/HCPCS: 36415; 80048; 85025

== ENCOUNTER 2021-09-02 20:29 | Observation (INO) | payer MEDICARE ==
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
--- NOTE | 2021-09-02 22:04 | XR ---
EXAMINATION TYPE: XR knee 4V RT, XR shoulder complete RT DATE OF EXAM: 09/02/2021 CLINICAL HISTORY: Pain after fall. TECHNIQUE: Three views of the right shoulder knee are obtained. COMPARISON: None. FINDINGS: Shoulder: There is no acute fracture/dislocation evident in the right shoulder. Degenerative changes of the acromioclavicular and glenohumeral joint spaces. Sclerosis and irregularity of the greater tub erosity. During the lateral aspect of the humeral. The visualized ribs are intact and unremarkable. Knee: The compartmental degenerative changes. Osteopenia. No joint effusion. Extensor mechanism is i ntact. No acute fracture or dislocation. Vascular calcifications. IMPRESSION: Advanced degenerative changes without an acute fracture or dislocation in the right shoul narcisa or knee.
[2021-09-02 22:27] LABS: Basophils % (A) 0 %; Eosinophils # (A) 0.1 k/uL (0-0.7); Eosinophils % (A) 1 %; Lymphocytes % (A) 21 %; MCH 32.3 pg (25.0-35.0); MCHC 32.5 g/dL (31.0-37.0); MCV 99.4 fL (80.0-100.0); Mean Platelet Volume 8.7; Monocytes # (A) 0.7 k/uL (0-1.0); Monocytes % (A) 5 %; Neutrophils # (A) 10.3 k/uL (1.3-7.7); Neutrophils % (A) 72 %; Platelet Count 171 k/uL (150-450); RBC 4.03 m/uL (4.30-5.90); RDW 13.7 % (11.5-15.5); WBC 14.4 k/uL (3.8-10.6)
[2021-09-02 22:35] LABS: ALT 19 U/L (4-49); AST 31 U/L (17-59); African American GFR (CKD) >90 (>60 ml/min/1.73 sqM); Albumin 3.9 g/dL (3.5-5.0); Alkaline Phosphatase 74 U/L (38-126); Anion Gap 9 mmol/L; Blood Urea Nitrogen 25 mg/dL (9-20); Calcium 8.9 mg/dL (8.4-10.2); Carbon Dioxide 23 mmol/L (22-30); Chloride 104 mmol/L (98-107); Glucose 139 mg/dL (74-99); Magnesium 1.8 mg/dL (1.6-2.3); Non-African American GFR(CKD) 84 (>60 ml/min/1.73 sqM); Potassium 4.8 mmol/L (3.5-5.1); Sodium 136 mmol/L (137-145); Total Bilirubin 0.9 mg/dL (0.2-1.3); Total Protein 6.5 g/dL (6.3-8.2)
[2021-09-02 22:36] LABS: Partial Thromboplastin Time 24.4 sec (22.0-30.0); Prothrombin Time 10.8 sec (9.0-12.0)
[2021-09-02] MEDS ORDERED: MORPHINE SULFATE 2 MG/ML SYRINGE IVP STA (23:10)
--- NOTE | 2021-09-02 23:15 | CT ---
EXAMINATION TYPE: CT brain aureliaine wo con DATE OF EXAM: 09/02/2021 COMPARISON: 07/27/2018 HISTORY: fall Headache. Neck pain CT DLP: 1493.1 mGycm Automated exposure control for dose reduction was used. There is cerebral cortical atrophy. There is no mass effect nor midline shift. There is no sign of in tracranial hemorrhage. Calvarium is intact. Skull base is intact. There is normal aeration of the mas toid sinuses Cervical vertebra have normal alignment. There is degenerative disc space narrowing from C3 to C7 wit h spurring of the endplates. Facet joints are intact. Prevertebral soft tissues are intact. I see no focal bone destruction. IMPRESSION: Multilevel cervical spondylotic changes. No fracture seen. Cerebral atrophy. No acute intracranial abnormality. No change compared to old exam.
--- NOTE | 2021-09-02 23:34 | CT ---
EXAMINATION TYPE: CT ChestAbdPelvis w con DATE OF EXAM: 09/02/2021 COMPARISON: None HISTORY: fall CT DLP: 1694.1 mGycm Automated exposure control for dose reduction was used. CONTRAST: Performed with IV Contrast, patient injected with 100 mL of Isovue 300. Images obtained from the thoracic inlet to the floor the pelvis with IV contrast. Heart is enlarged. There is some infiltrate and atelectasis at both posterior lung bases. There is no pleural effusion or pneumothorax. There is no mediastinal adenopathy. Thoracic aorta is atheromatous . There are no hilar masses. There is aortic valve surgery. Liver spleen stomach pancreas appear intact. The bile ducts are not dilated. Gallbladder is intact. T here are small calcified gallstones in the dependent gallbladder. Gallbladder measures 4 cm in diamet er. There is no adrenal mass. Kidneys have normal size. There is no hydronephrosis. There are bilateral r enal cortical cysts that measure up to 3.5 cm. Delayed images show normal renal excretion. There is n o retroperitoneal adenopathy. Bladder distends smoothly. There is no inguinal hernia. There is no ethel e fluid in the pelvis. There is no mesenteric edema or there is no ascites or free air. There are sigmoid diverticula withou t sign of diverticulitis. There is no evidence of a bowel obstruction. There is some mild retained fe khalif material in the large bowel. The lumbar vertebra have normal alignment. There is degenerative disc space narrowing from L1 to L5. There is no thoracic or lumbar compression fracture. The sternum is intact. The proximal femurs and hip joints are intact. Bony pelvis is intact. There is no evidence of pelvic fracture. Sacroiliac joints are intact. There is arthritic changes in the shoulder joints. I see no definite rib fracture. There is old fract ure right posterior 11th rib. There is old fracture also right lateral 10th rib. IMPRESSION: There is some patchy infiltrate and atelectasis at the posterior lung bases. Cardiomegaly. Old right- sided rib fractures. No acute fracture seen. Atherosclerotic vascular disease. Cholelithiasis. Mild colonic diverticulosis. No acute abnormality within the abdomen pelvis.
[2021-09-03] MEDS ORDERED: PNEUMONIA PROTOCOL UTILIZED 1 EACH MISC PO PRN (00:54)
[2021-09-03] MEDS ORDERED: IPRATROPIUM-ALBUTEROL 3 ML NEB INHALATION PRN (00:54)
[2021-09-03] MEDS ORDERED: AZITHROMYCIN 500 MG in SODIUM CHLORIDE 0.9% 250 ML IVPB STA (00:54)
[2021-09-03] MEDS ORDERED: MORPHINE SULFATE 4 MG/ML SYRINGE IVP STA ×2 (00:55→11:11)
[2021-09-03] MEDS: MORPHINE SULFATE 4 MG/ML SYRINGE IVP PRN ×2 (08:00→19:16)
[2021-09-03] MEDS: SODIUM CHLORIDE 0.9% 1,000 ML IV SCH ×3 (08:50→20:44)
[2021-09-03 11:52] LABS: Appearance,Urine Clear (Clear); Bacteria,Urine Occasional /hpf; Bilirubin,Urine Negative (Negative); Blood,Urine Negative (Negative); Color,Urine Yellow; Glucose,Urine (UA) Trace (Negative); Ketones,Urine Negative (Negative); Leukocyte Esterase,Urine Small (Negative); Mucus,Urine Rare /hpf; Nitrite,Urine Negative (Negative); Protein,Urine Trace (Negative); RBC,Urine 2 /hpf (0-5); Specific Gravity,Urine 1.033 (1.001-1.035); Squamous Epithelial Cell,Urine <1 /hpf (0-4); Urobilinogen,Urine <2.0 mg/dL (<2.0); WBC,Urine 19 /hpf (0-5)
[2021-09-03] MEDS ORDERED: NITROGLYCERIN SL TABS 0.4 MG TAB SUBLINGUAL PRN (13:31)
[2021-09-03] MEDS ORDERED: FUROSEMIDE 40 MG TAB PO PRN (13:31)
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
[2021-09-03 15:24] LABS: Chloride 105 mmol/L (98-107)
[2021-09-03 15:26] LABS: ALT 16 U/L (4-49); AST 24 U/L (17-59); African American GFR (CKD) >90 (>60 ml/min/1.73 sqM); Albumin 3.6 g/dL (3.5-5.0); Albumin/Globulin Ratio 1.4; Alkaline Phosphatase 66 U/L (38-126); Anion Gap 7 mmol/L; Blood Urea Nitrogen 19 mg/dL (9-20); Calcium 8.7 mg/dL (8.4-10.2); Carbon Dioxide 22 mmol/L (22-30); Globulin 2.6 g/dL; Glucose 156 mg/dL (74-99); Non-African American GFR(CKD) 86 (>60 ml/min/1.73 sqM); Potassium 4.6 mmol/L (3.5-5.1); Sodium 134 mmol/L (137-145); Total Bilirubin 0.9 mg/dL (0.2-1.3); Total Protein 6.2 g/dL (6.3-8.2)
[2021-09-03 15:45] LABS: Basophils % (A) 0 %; Eosinophils % (A) 0 %; HCT 38.7 % (39.0-53.0); HGB 12.5 gm/dL (13.0-17.5); Lymphocytes # (A) 3.2 k/uL (1.0-4.8); Lymphocytes % (A) 19 %; MCH 32.4 pg (25.0-35.0); MCHC 32.3 g/dL (31.0-37.0); MCV 100.3 fL (80.0-100.0); Macrocytosis Slight; Mean Platelet Volume 9.2; Monocytes # (A) 0.9 k/uL (0-1.0); Monocytes % (A) 5 %; Neutrophils # (A) 12.9 k/uL (1.3-7.7); Neutrophils % (A) 75 %; Platelet Count 174 k/uL (150-450); RBC 3.86 m/uL (4.30-5.90); RDW 13.8 % (11.5-15.5); WBC 17.3 k/uL (3.8-10.6)
[2021-09-03 20:26] LABS: Glucose,Whole Blood 239 mg/dL (75-99)
[2021-09-03] MEDS: metFORMIN 500 MG TAB PO SCH (20:29)
[2021-09-03] MEDS: METOPROLOL SUCCINATE (ER) 50 MG TAB.ER.24H PO SCH (20:29)
[2021-09-03] MEDS: ATORVASTATIN 10 MG TAB PO SCH (20:29)
[2021-09-03] MEDS: APIXABAN 5 MG TAB PO SCH (20:29)
[2021-09-03] MEDS: AMIODARONE 200 MG TAB PO SCH (20:41)
[2021-09-03] MEDS: LATANOPROST 0.005% OPHTH DROPS 2.5 ML BTL RIGHT EYE SCH (20:41)
[2021-09-04] MEDS ORDERED: LORazepam 2 MG/ML INJ IV PRN (06:07)
[2021-09-04 07:31] LABS: Glucose,Whole Blood 128 mg/dL (75-99)
--- NOTE | 2021-09-04 08:07 | XR ---
EXAMINATION TYPE: XR chest 1V DATE OF EXAM: 09/04/2021 COMPARISON: Chest x-ray 06/23/2021, CT chest 09/02/2021 HISTORY: Pneumonia TECHNIQUE: Single frontal view of the chest is obtained. FINDINGS: Patient is rotated. Pacemaker is stable. Heart is likely enlarged, aorta is dense. Interst itium is increased. No evident pneumothorax or sizable effusion. Patchy densities present bilaterally . IMPRESSION: Correlate for pneumonia versus atelectasis. Cardiomegaly, cannot exclude early interstiti al edema
[2021-09-04] MEDS: metFORMIN 500 MG TAB PO SCH ×2 (08:49→21:14)
[2021-09-04] MEDS: APIXABAN 5 MG TAB PO SCH ×2 (08:50→21:14)
[2021-09-04] MEDS: ASPIRIN 81 MG PO SCH (08:50)
[2021-09-04] MEDS: HYDROcodone/APAP 7.5-325MG 1 EACH TAB PO PRN ×2 (08:50→21:14)
[2021-09-04] MEDS: AZITHROMYCIN 500 MG TAB PO SCH (08:50)
[2021-09-04] MEDS: METOPROLOL SUCCINATE (ER) 50 MG TAB.ER.24H PO SCH ×2 (08:50→21:14)
[2021-09-04 10:12] LABS: Basophils % (A) 0 %; Eosinophils % (A) 0 %; HCT 36.6 % (39.0-53.0); HGB 11.8 gm/dL (13.0-17.5); Lymphocytes # (A) 1.9 k/uL (1.0-4.8); Lymphocytes % (A) 14 %; MCH 32.4 pg (25.0-35.0); MCHC 32.3 g/dL (31.0-37.0); MCV 100.4 fL (80.0-100.0); Macrocytosis Slight; Mean Platelet Volume 8.7; Monocytes # (A) 0.4 k/uL (0-1.0); Monocytes % (A) 3 %; Neutrophils # (A) 11.2 k/uL (1.3-7.7); Neutrophils % (A) 82 %; Platelet Count 161 k/uL (150-450); RBC 3.65 m/uL (4.30-5.90); RDW 13.8 % (11.5-15.5); WBC 13.7 k/uL (3.8-10.6)
[2021-09-04 10:34] LABS: ALT 16 U/L (4-49); AST 26 U/L (17-59); African American GFR (CKD) >90 (>60 ml/min/1.73 sqM); Albumin 3.1 g/dL (3.5-5.0); Alkaline Phosphatase 69 U/L (38-126); Anion Gap 6 mmol/L; Blood Urea Nitrogen 17 mg/dL (9-20); Calcium 8.7 mg/dL (8.4-10.2); Carbon Dioxide 28 mmol/L (22-30); Chloride 103 mmol/L (98-107); Glucose 190 mg/dL (74-99); Non-African American GFR(CKD) 88 (>60 ml/min/1.73 sqM); Potassium 4.1 mmol/L (3.5-5.1); Sodium 137 mmol/L (137-145); Total Bilirubin 0.9 mg/dL (0.2-1.3); Total Protein 5.6 g/dL (6.3-8.2)
--- NOTE | 2021-09-04 12:25 | XR ---
EXAMINATION TYPE: XR Hip LT and AP Pelvis DATE OF EXAM: 09/04/2021 COMPARISON: Exam dated 07/27/2018 HISTORY: Hip pain, trauma TECHNIQUE: A single AP view of the pelvis is obtained. Two views of the left hip are obtained. FINDINGS: Patient is rotated. Technique somewhat limited by patient body habitus. Bone mineralization mildly reduced. There are dense vascular calcifications present. There is no acute fracture/dislocat ion evident in the pelvis. The hip and sacroiliac joints appear symmetric and unremarkable. The ove rlying soft tissue appears unremarkable. Two views of left hip show no acute fracture or dislocation. No focal lytic or sclerotic lesion seen in the proximal left femur. The overlying soft tissue is unremarkable. IMPRESSION: There is no acute fracture or dislocation in the pelvis or left hip.
[2021-09-04 12:43] LABS: Glucose,Whole Blood 92 mg/dL (75-99)
[2021-09-04 16:51] LABS: Glucose,Whole Blood 180 mg/dL (75-99)
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
--- NOTE | 2021-09-04 19:55 | XR ---
EXAMINATION TYPE: XR knee limited LT DATE OF EXAM: 09/04/2021 COMPARISON: NONE HISTORY: Knee pain TECHNIQUE: 2 views FINDINGS: There is mild spurring of the lateral tibial condyle. There is vascular calcification. I se e no fracture nor dislocation. There is spurring on the patella. IMPRESSION: No fracture seen. Extensive vascular calcification noted.
--- NOTE | 2021-09-04 19:58 | XR ---
EXAMINATION TYPE: XR femur LT DATE OF EXAM: 09/04/2021 COMPARISON: NONE HISTORY: Leg pain TECHNIQUE: 4 views FINDINGS: The knee joint and hip joint appear intact. I see no fracture nor dislocation. Acetabulum i s intact. There is extensive vascular calcification. IMPRESSION: No acute abnormality of the left femur.
[2021-09-04 20:46] LABS: Glucose,Whole Blood 248 mg/dL (75-99)
[2021-09-04] MEDS: SODIUM CHLORIDE 0.9% 1,000 ML IV SCH ×2 (21:01→21:02)
[2021-09-04] MEDS: AMIODARONE 200 MG TAB PO SCH (21:14)
[2021-09-04] MEDS: ATORVASTATIN 10 MG TAB PO SCH (21:14)
[2021-09-04] MEDS: LATANOPROST 0.005% OPHTH DROPS 2.5 ML BTL RIGHT EYE SCH (21:15)
[2021-09-05 00:05] LABS: Glucose,Whole Blood 151 mg/dL (75-99)
[2021-09-05] MEDS: SODIUM CHLORIDE 0.9% 1,000 ML IV SCH ×3 (03:25→21:12)
[2021-09-05 07:23] LABS: Glucose,Whole Blood 123 mg/dL (75-99)
[2021-09-05 07:49] LABS: Basophils % (A) 0 %; Eosinophils # (A) 0.2 k/uL (0-0.7); Eosinophils % (A) 1 %; HCT 34.8 % (39.0-53.0); HGB 11.4 gm/dL (13.0-17.5); Lymphocytes # (A) 2.5 k/uL (1.0-4.8); Lymphocytes % (A) 20 %; MCH 33.1 pg (25.0-35.0); MCHC 32.8 g/dL (31.0-37.0); Macrocytosis Slight; Mean Platelet Volume 9.3; Monocytes # (A) 0.6 k/uL (0-1.0); Monocytes % (A) 5 %; Neutrophils # (A) 8.9 k/uL (1.3-7.7); Neutrophils % (A) 71 %; Platelet Count 167 k/uL (150-450); RBC 3.45 m/uL (4.30-5.90); RDW 13.6 % (11.5-15.5); WBC 12.4 k/uL (3.8-10.6)
[2021-09-05 08:06] LABS: ALT 17 U/L (4-49); AST 26 U/L (17-59); African American GFR (CKD) >90 (>60 ml/min/1.73 sqM); Albumin 2.9 g/dL (3.5-5.0); Alkaline Phosphatase 67 U/L (38-126); Anion Gap 7 mmol/L; Blood Urea Nitrogen 19 mg/dL (9-20); Calcium 8.5 mg/dL (8.4-10.2); Carbon Dioxide 24 mmol/L (22-30); Chloride 107 mmol/L (98-107); Glucose 125 mg/dL (74-99); Non-African American GFR(CKD) 90 (>60 ml/min/1.73 sqM); Potassium 3.8 mmol/L (3.5-5.1); Sodium 138 mmol/L (137-145); Total Bilirubin 0.8 mg/dL (0.2-1.3); Total Protein 5.3 g/dL (6.3-8.2)
[2021-09-05] MEDS: APIXABAN 5 MG TAB PO SCH ×2 (08:36→21:05)
[2021-09-05] MEDS: metFORMIN 500 MG TAB PO SCH ×2 (08:36→21:05)
[2021-09-05] MEDS: METOPROLOL SUCCINATE (ER) 50 MG TAB.ER.24H PO SCH ×2 (08:36→21:05)
[2021-09-05] MEDS: ASPIRIN 81 MG PO SCH (08:36)
[2021-09-05] MEDS: AZITHROMYCIN 500 MG TAB PO SCH (08:37)
[2021-09-05] MEDS: HYDROcodone/APAP 7.5-325MG 1 EACH TAB PO PRN ×2 (08:42→21:11)
[2021-09-05 12:05] LABS: Glucose,Whole Blood 102 mg/dL (75-99)
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
--- NOTE | 2021-09-05 14:32 | EEG ---
ELECTROENCEPHALOGRAM REPORT DATE OF SERVICE: 09/05/2021. DESCRIPTION: This is an 89-year-old gentleman who has altered mental status. This video EEG is obtained to evaluate for seizure epileptiform activity. RELEVANT MEDICATION: The patient is not on any antiepileptic drugs. EEG TYPE: A routine 21 channel EEG is performed with video using the 10/20 electrode system. DESCRIPTION: Wakefulness and drowsiness are obtained. During wakefulness, there is a posterior dominant rhythm of low to moderate voltage that is well modulated of 8 hertz. During drowsiness, there is slowing attenuation of the background activity. There was no physiological stage 2 sleep architecture seen. There is no focal slowing. Interictal and ictal is none. ACTIVATION PROCEDURES: Photic stimulation did not evoke a posterior driving response. There is no abnormality during the photic stimulation. Hyperventilation is not performed. CLINICAL INTERPRETATION: This is a normal routine EEG. There are no focal slowing, epileptiform discharges or seizure on the EEG. Clinical correlation is recommended. NEDRA / TRAVIS: [id number] / MTDD
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
[2021-09-05 20:33] LABS: Glucose,Whole Blood 116 mg/dL (75-99)
[2021-09-05] MEDS: AMIODARONE 200 MG TAB PO SCH (21:05)
[2021-09-05] MEDS: ATORVASTATIN 10 MG TAB PO SCH (21:05)
[2021-09-05] MEDS: LATANOPROST 0.005% OPHTH DROPS 2.5 ML BTL RIGHT EYE SCH (21:46)
[2021-09-06] MEDS: HYDROcodone/APAP 7.5-325MG 1 EACH TAB PO PRN ×3 (04:28→19:58)
[2021-09-06 07:07] LABS: Glucose,Whole Blood 84 mg/dL (75-99)
[2021-09-06] MEDS: ASPIRIN 81 MG PO SCH (07:32)
[2021-09-06] MEDS: METOPROLOL SUCCINATE (ER) 50 MG TAB.ER.24H PO SCH ×2 (07:32→20:46)
[2021-09-06] MEDS: metFORMIN 500 MG TAB PO SCH ×2 (07:32→20:46)
[2021-09-06] MEDS: APIXABAN 5 MG TAB PO SCH ×2 (07:33→20:46)
--- NOTE | 2021-09-06 09:05 | CDI ---
Documentation Clarification Form Date: 09/06/2021 08:59:47 AM From: Liz Srinivasan RN, CCDS Admit Date: 09/03/2021 12:54:00 AM Patient Name: Dima Alvarez Visit Number: [id number] ATTENTION: The Clinical Documentation Specialists (CDI) and [facility] Coding Staff appreciate your assistance in clarifying documentation. Please respond to the clarification below the line at the bottom and electronically sign. The CDI & [facility] Coding staff will review the response and follow-up if needed. Please note: Queries are made part of the Legal Health Record. If you have any questions, please contact the author of this message via ITS. Dr. Caesar Wheeler Atrial Fibrillation is documented in the H&P and Progress notes. Additional clarification regarding the type of atrial fibrillation is requested. History/Risk Factors: Atrial Fib, CHF, CVA, DM2, HTN, HLD Clinical Indicators: 09/03 H&P-09/05 Attending Progress Notes: "Underlying history of atrial fibrillation maintained on amiodarone and Eliquis." EKG/telemetry: not done Treatment: Eliquis 5 mg Po BID Amiodarone 200 mg PO HS ASA 81 mg Po QD Toprol XL 100 mg PO BID Please clarify the type of atrial fibrillation, if known: [ ] Chronic [ ] Permanent [ ] Paroxysmal [ ] Persistent [ ] Other, please specify [ ] Unable to determine (Template Last Revised: March 2021) Paroxysmal MTDD
[2021-09-06] MEDS: SODIUM CHLORIDE 0.9% 1,000 ML IV SCH ×2 (11:10→20:58)
[2021-09-06 11:32] LABS: Glucose,Whole Blood 84 mg/dL (75-99)
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
[2021-09-06] MEDS: LIDOCAINE 5% PATCH TOPICAL SCH (15:08)
--- NOTE | 2021-09-06 15:38 | P.PN ---
Subjective Progress Note Date: 09/06/21 She was seen at bedside and he stated that he's doing well and denies any neurological deficits. He stated to me that he is about the same today compared to yesterday. Objective - Vital Signs Vital signs: Vital Signs Temp 98.2 F 09/06/21 14:00 Pulse 60 09/06/21 14:00 Resp 18 09/06/21 14:00 BP 183/85 09/06/21 14:00 Pulse Ox 100 09/06/21 14:00 Intake & Output 09/05/21 09/06/21 09/06/21 18:59 06:59 18:59 Intake Total 1200 950 Balance 1200 950 Intake: Intake, IV Titration 1200 950 Amount Sodium Chloride 0.9% 1, 1200 900 000 ml @ 100 mls/hr IV . Q10H [facility] Rx#:[id number] cefTRIAXone 2 gm In 50 Sodium Chloride 0.9% 50 ml @ 100 mls/hr IVPB Q24H [facility] Rx#:[id number] Other: Voiding Method Diaper Urinal Urinal Incontinent Diaper Diaper Incontinent Incontinent # Voids 2 1 - Exam GENERAL: The patient is lying in bed and is not in acute distress. NEUROLOGICAL: Higher mental function: The patient is awake, alert, oriented to self and time. He stated he was in the hospital but could not tell me which. He is able to name objects correctly (watch and pen). Patient is following commands. No aphasia and no neglect. Cranial nerves: The right pupil is round (3-4mm) and reactive to light and accommodation. 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 The left eye is closed shut. Visual orellana is full over the right. Extraocular movement is intact no nystagmus is noted over the right. Facial sensation is normal to touch throughout. The facial strength is normal throughout. Hearing is moderately decreased bilaterally to hand rub. Tongue is midline and moved [id number] without any difficulty. No dysarthria is noted. Shoulder shrug is antigravity but having pain over the right (stated he was told that it needed repair). Motor: The strength is the left upper extremity: arm flexion/extension is 4+. Otherwise some limited over the right proximal because of pain. The lowers is antigravity without focality. Normal tone and bulk. Cerebellum: Normal finger to nose bilaterally. Sensation: Sensation is normal to touch throughout. Reflexes (right/left): 1+ throughout. Plantars are mute bilaterally. WORK-UP: CT of the head is reported as cerebral atrophy. No acute intracranial abnormality. No change compared to old exam. I reviewed the CT of the brain and there is no acute or subacute ischemia that was a appreciable and there is no bleeding noted. CT of the cervical spine is reported as multilevel cervical spondylitic changes. No fracture seen. I personally reviewed the CT of the cervical spine and the there is a cervical spondylosis the significant over C3-C4 and the C5-C6 as well as C6-C7. Routine EEG: Normal. There are no focal slowing, epileptiform discharges or seizure on the EEG. De Souza virus PCR was not detected. Urinalysis the leukocyte esterase a small, urine white blood cells 19, urine bacteria was occasional and urine mucus is rare. The urinalysis seems possible suggestive of urinary tract infection. TSH is 1.740 Ammonia level is less than 9 - Labs CBC & Chem 7: 09/05/21 07:09 09/05/21 07:09 Labs: Abnormal Lab Results - Last 24 Hours (Table) 09/05/21 Range/Units 20:32 POC Glucose (mg/dL) 116 H (75-99) mg/dL Microbiology - Last 24 Hours (Table) 09/03/21 03:11 Blood Culture - Preliminary Blood No Growth after 72 hours 09/03/21 03:11 Blood Culture - Preliminary Blood No Growth after 72 hours Assessment and Plan Assessment: Delerium underlying urinary tract infection--improved Altered mental status due to to the component of toxic-metabolic encephalopathy (and getting [place] and Ativan) as well as underlying urinary tract infection--mentation currently back to baseline Fall Cervical spondylosis History of stroke with residual left-sided weakness (predominately upper) Reported History of TIAs in the past Left hip contusion with focal hematoma after a fall. No fracture on the x-ray or CT of the pelvis hip Acute Urinary tract infection Atrial fibrillation on Eliquis Pacemaker Known history of polio affecting the right side Chronic lower back pain Hypertension Hyperlipidemia Diabetes mellitus and the sugar has been labile History of blindness over the left eye History of hearing loss and hearing aids the Osteoarthritis Plan: Patient is on his home dose of Eliquis 5 mg without twice a day, aspirin 81 mg and currently is on the Lipitor 10MG daily at bedtime. Please avoid any sedation, opioid/narcotic that affect the patient's mentation. Every 4 hours neuro checks Regarding the cervical spondylosis orthopedic team is on board. Recommend as well as outpatient follow-up for further management. PT and OT are on board. We'll defer the rest of the medical management to the primary team. Upon discharge the patient is to follow up with a neurologist within 1-2 weeks. The plan is discussed with the patient, his and daughter as well patient's nurse. There is no further neurological workup. Neurology will sign off. Please reconsult if needed. Kai Rosales M.D. Neuro-hospitalist Time with Patient: Less than 30
[2021-09-06 16:50] LABS: Glucose,Whole Blood 81 mg/dL (75-99)
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
[2021-09-06 19:48] LABS: Glucose,Whole Blood 105 mg/dL (75-99)
[2021-09-06] MEDS: ATORVASTATIN 10 MG TAB PO SCH (20:46)
[2021-09-06] MEDS: tiZANidine 4 MG TAB PO SCH (20:46)
[2021-09-06] MEDS: AMIODARONE 200 MG TAB PO SCH (20:46)
[2021-09-06] MEDS: LATANOPROST 0.005% OPHTH DROPS 2.5 ML BTL RIGHT EYE SCH (20:46)
[2021-09-07] MEDS: HYDROcodone/APAP 7.5-325MG 1 EACH TAB PO PRN ×2 (03:23→15:28)
[2021-09-07] MEDS: SODIUM CHLORIDE 0.9% 1,000 ML IV SCH ×2 (05:28→16:15)
[2021-09-07 07:08] LABS: Glucose,Whole Blood 82 mg/dL (75-99)
[2021-09-07] MEDS: ASPIRIN 81 MG PO SCH (07:52)
[2021-09-07] MEDS: METOPROLOL SUCCINATE (ER) 50 MG TAB.ER.24H PO SCH (07:52)
[2021-09-07] MEDS: APIXABAN 5 MG TAB PO SCH (07:53)
[2021-09-07] MEDS: LIDOCAINE 5% PATCH TOPICAL SCH (07:53)
[2021-09-07] MEDS: metFORMIN 500 MG TAB PO SCH (07:54)
[2021-09-07] MEDS: tiZANidine 4 MG TAB PO SCH (07:55)
[2021-09-07 10:37] LABS: Basophils % (A) 0 %; Eosinophils # (A) 0.3 k/uL (0-0.7); Eosinophils % (A) 4 %; HCT 34.7 % (39.0-53.0); HGB 11.2 gm/dL (13.0-17.5); Lymphocytes # (A) 2.3 k/uL (1.0-4.8); Lymphocytes % (A) 31 %; MCH 32.3 pg (25.0-35.0); MCHC 32.3 g/dL (31.0-37.0); MCV 100.1 fL (80.0-100.0); Mean Platelet Volume 8.8; Monocytes # (A) 0.4 k/uL (0-1.0); Monocytes % (A) 5 %; Neutrophils # (A) 4.1 k/uL (1.3-7.7); Neutrophils % (A) 57 %; Platelet Count 205 k/uL (150-450); RBC 3.47 m/uL (4.30-5.90); RDW 13.5 % (11.5-15.5); WBC 7.3 k/uL (3.8-10.6)
[2021-09-07 10:57] LABS: African American GFR (CKD) >90 (>60 ml/min/1.73 sqM); Albumin 2.6 g/dL (3.5-5.0); Anion Gap 7 mmol/L; Blood Urea Nitrogen 15 mg/dL (9-20); Calcium 8.3 mg/dL (8.4-10.2); Carbon Dioxide 26 mmol/L (22-30); Chloride 105 mmol/L (98-107); Glucose 113 mg/dL (74-99); Non-African American GFR(CKD) 87 (>60 ml/min/1.73 sqM); Potassium 4.2 mmol/L (3.5-5.1); Sodium 138 mmol/L (137-145); Total Protein 5.1 g/dL (6.3-8.2)
[2021-09-07 10:58] LABS: ALT 24 U/L (4-49); AST 26 U/L (17-59); Alkaline Phosphatase 71 U/L (38-126); Total Bilirubin 0.4 mg/dL (0.2-1.3)
[2021-09-07 11:16] LABS: Glucose,Whole Blood 106 mg/dL (75-99)
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
[2021-09-07 14:15] VITALS: BP 185/81; PULSE 63; RESP 18; TEMP 98.5
== END 2021-09-07 18:27 ==
LOC: EC 20:29 → 4SSUR 09-03 00:54 → INTOOBSV 09-03 00:54 → 4SSUR 09-03 05:54 → 1SOBS 09-03 16:51 → UNDODISIN 09-07 18:27
PROVIDERS: ADMIT Internal Medicine; ATTEND Internal Medicine
DX: S70.02XA Contusion of left hip, initial encounter (principal); E86.0 Dehydration; N39.0 Urinary tract infection, site not specified; R91.8 Other nonspecific abnormal finding of lung field; E11.9 Type 2 diabetes mellitus without complications; I11.0 Hypertensive heart disease with heart failure; I50.9 Heart failure, unspecified; I48.0 Paroxysmal atrial fibrillation; E78.5 Hyperlipidemia, unspecified; G89.29 Other chronic pain; M19.90 Unspecified osteoarthritis, unspecified site; G92.9 Unspecified toxic encephalopathy; R32 Unspecified urinary incontinence; H91.90 Unspecified hearing loss, unspecified ear; G14 Postpolio syndrome; H54.62 Unqualified visual loss, left eye, normal vision right eye; M54.50 Low back pain, unspecified; M25.511 Pain in right shoulder; M79.18 Myalgia, other site; M47.816 Spondylosis without myelopathy or radiculopathy, lumbar region; M96.1 Postlaminectomy syndrome, not elsewhere classified; M47.812 Spondylosis without myelopathy or radiculopathy, cervical region; I69.354 Hemiplegia and hemiparesis following cerebral infarction affecting left non-dominant side; Z20.822 Contact with and (suspected) exposure to COVID-19; Z86.16 Personal history of COVID-19; W19.XXXA Unspecified fall, initial encounter; Z91.81 History of falling; Z97.0 Presence of artificial eye; Z95.0 Presence of cardiac pacemaker; Z79.899 Other long term (current) drug therapy; Z79.84 Long term (current) use of oral hypoglycemic drugs; Z79.01 Long term (current) use of anticoagulants; Z79.82 Long term (current) use of aspirin; Z91.011 Allergy to milk products; Z91.048 Other nonmedicinal substance allergy status; R29.6 Repeated falls; Z71.9 Counseling, unspecified; Z97.4 Presence of external hearing-aid; Z87.81 Personal history of (healed) traumatic fracture; Z53.29 Procedure and treatment not carried out because of patient's decision for other reasons
CPT/HCPCS: 96361 ×3; 96365; 96366 ×3; 96375 ×2; 96376 ×2; 99285; 36415; 94760; 95816; 97530; 97162; 97535; 97166; 80053 ×5; 84443; 82140; 82550; 83735; 85025 ×5; 85610; 85730; 81001; 87040; 87086; 87635; 73502; 73552; 73030; 73560; 73564; 71045; 72125; 70450; 71260; 74177; G0378 ×6; J2060; J2270 ×2; J0456; J0696 ×5; Q9967; 96374

== ENCOUNTER 2021-10-15 17:39 | Emergency (ER) | payer MEDICARE ==
[2021-10-15 19:21] VITALS: RESP 18
[2021-10-15] MEDS ORDERED: BAMLANIVIMAB (EUA) 700 MG, ETESEVIMAB (EUA) 1,400 MG in SODIUM CHLORIDE 0.9% 50 ML IVPB ONE (19:30)
[2021-10-15] MEDS ORDERED: SODIUM CHLORIDE 0.9% 50 ML IVPB ONE (19:30)
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
[2021-10-15 21:27] VITALS: BP 138/78; PULSE 71; TEMP 98.1
== END 2021-10-15 21:27 | disposition home or self-care (01) ==
LOC: EC 17:39
DX: U07.1 COVID-19 (principal); I48.91 Unspecified atrial fibrillation; I50.9 Heart failure, unspecified; E11.9 Type 2 diabetes mellitus without complications; E78.5 Hyperlipidemia, unspecified; I10 Essential (primary) hypertension; M19.90 Unspecified osteoarthritis, unspecified site; Z79.84 Long term (current) use of oral hypoglycemic drugs; Z79.01 Long term (current) use of anticoagulants; Z79.82 Long term (current) use of aspirin; Z86.73 Personal history of transient ischemic attack (TIA), and cerebral infarction without residual deficits; Z95.0 Presence of cardiac pacemaker
CPT/HCPCS: 99283; 96365; 96366; 87635; J3490